=== PATIENT | female | born 1990 | race Hispanic/Latino ===

== ENCOUNTER 2022-05-21 17:44 | Inpatient (IN) | payer MEDICAID ==
[2022-05-21] MEDS ORDERED: LACTATED RINGERS 1,000 ML ONE (18:06)
[2022-05-21] MEDS ORDERED: OXYTOCIN DRIP 30,000 MILLIUNITS/500 ML BAG IV ONE (18:06)
[2022-05-21] MEDS ORDERED: TERBUTALINE 1 MG/1 ML INJ ONE (18:19)
[2022-05-21] MEDS ORDERED: METOCLOPRAMIDE 10 MG/2 ML INJ IV ONE (18:21)
[2022-05-21] MEDS ORDERED: BICITRA ORAL LIQD 30ML PO ONE (18:21)
[2022-05-21] MEDS ORDERED: AZITHROMYCIN/NS 500 MG/250 ML 500 MG/250 ML BAG IV ONE (18:21)
[2022-05-21] MEDS ORDERED: FAMOTIDINE 20 MG/2 ML INJ IV ONE (18:21)
[2022-05-21] MEDS ORDERED: TERBUTALINE 1 MG/1 ML INJ SUB-Q ONE (18:23)
[2022-05-21] MEDS ORDERED: LACTATED RINGERS 1,000 ML IV SCH ×2 (18:30)
[2022-05-21 18:38] LABS: Hematocrit 26.8 % (30.3-42.9); Hemoglobin 8.4 gm/dl (10.1-14.3); Mean Corpuscular HGB Conc 31 % (30-34); Mean Corpuscular Volume 70 fl (79-97); Platelet Count 225 K/mm3 (140-440); Red Blood Count 3.86 M/mm3 (3.65-5.03); Red Cell Distribution Width 17.8 % (13.2-15.2)
[2022-05-21] MEDS ORDERED: propofoL 200 MG/20 ML VIAL IV ONE (18:59)
[2022-05-21] MEDS ORDERED: SUCCINYLCHOLINE CHLORIDE 200 MG/10 ML INJ MDV ONE (18:59)
[2022-05-21] MEDS ORDERED: OXYTOCIN DRIP 30 UNITS/500 ML BAG IV SCH ×2 (19:00→21:00)
[2022-05-21] MEDS ORDERED: ceFAZolin/Water 2 GM/20 ML 2 GM/20 ML SYRINGE IV NR (19:00)
[2022-05-21] MEDS ORDERED: fentaNYL 100 MCG/2 ML INJ ONE ×2 (19:01→20:06)
[2022-05-21] MEDS ORDERED: MIDAZOLAM 2 MG/2 ML INJ ONE (19:01)
[2022-05-21 19:02] LABS: Alanine Aminotransferase 9 units/L (7-56); Albumin 3.1 g/dL (3.9-5); Blood Urea Nitrogen 8 mg/dL (7-17); Calcium 8.3 mg/dL (8.4-10.2); Hemolysis Index 15
[2022-05-21 19:05] LABS: BUN/Creatinine Ratio 13
--- NOTE | 2022-05-21 19:09 | History and Physical Report ---
History of Present Illness Date of examination: 05/21/22 Date of admission: 05/21/22 Chief complaint: Active painful labor History of present illness: . X3 prior cesareans. DEIDRA 05/27/22. Past History Past Medical History: asthma, seizure Past Surgical History: section - Obstetrical History Expected Date of Delivery: 05/27/22 Actual Gestation: 39 Week(s) 1 Day(s) : 5 Medications and Allergies Allergies Allergy/AdvReac Type Severity Reaction Status Date / Time Latex, Natural Rubber Allergy Severe Rash Verified 11/29/13 15:14 Home Medications Medication Instructions Recorded Confirmed Last Taken Type No Known Home Medications [No 11/29/13 12/26/13 Unknown History Reported Home Medications] Active Meds: Active Medications Lactated Ringer's (Lactated Ringers) 1,000 mls @ 125 mls/hr IV DIRECT KOMAL Lactated Ringer's (Lactated Ringers) 1,000 mls @ 2,250 mls/hr IV PREOP KOMAL Stop: 05/22/22 18:57 Oxytocin/Sodium Chloride (Pitocin/Ns 30 Unit/500ml) 30 units in 500 mls @ 0 mls/hr IV TITR KOMAL; Protocol Cefazolin Sodium (Ancef/Sterile Water 2 Gm/20 Ml) 2 gm in 20 mls @ 80 mls/hr IV PREOP NR; Protocol Stop: 05/21/22 23:59 Azithromycin (Zithromax/Ns) 500 mg in 250 mls @ 250 mls/hr IV ONCE ONE; Protocol Stop: 05/21/22 19:20 Review of Systems All systems: negative Genitourinary: contractions - Vital Signs Vital signs: Vital Signs Pulse BP 81 139/94 05/21/22 18:10 05/21/22 18:10 Temp Pulse Resp BP Pulse Ox 97.5 F L 78 140/89 05/21/22 18:25 05/21/22 18:27 05/21/22 18:27 - Physical Exam Lungs: Positive: Normal air movement Abdomen: Positive: normal appearance, soft, distention, normal bowel sounds Genitourinary (Female): Positive: normal external genitalia, normal perenium Vulva: both: normal Vagina: Positive: normal moisture. Negative: discharge Uterus: Positive: enlarged, normal contour Anus/Rectum: Positive: normal perianal skin Extremities: Positive: normal Deep Tendon Reflex Grade: Normal +2 - Obstetrical FHR: category 1 Cervical Dilatation: 7 Cervical Effacement Percentage: 100 station: 0-4 breech Uterine Contraction Pattern: Regular Uterine Contraction Intensity: Strong/Firm Results Result Diagrams: 05/21/22 18:04 05/21/22 18:12 Abnormal lab results 05/21/22 Range/Units 18:04 WBC 12.2 H (4.5-11.0) K/mm3 Hgb 8.4 L (10.1-14.3) gm/dl Hct 26.8 L (30.3-42.9) % MCV 70 L (79-97) fl MCH 22 L (28-32) pg RDW 17.8 H (13.2-15.2) % All other labs normal. Assessment and Plan - Patient Problems (1) 39 weeks gestation of Current Visit: Yes Status: Acute (2) Breech presentation Current Visit: Yes Status: Acute (3) Previous delivery affecting Current Visit: Yes Status: Acute (4) Peritoneal adhesions Current Visit: Yes Status: Acute (5) Active labor Current Visit: Yes Status: Acute Plan to address problem: for delivery abelino.
[2022-05-21] MEDS ORDERED: SODIUM CHLORIDE 0.9% 500 ML 500 ML IV ONE (19:47)
[2022-05-21] MEDS ORDERED: LACTATED RINGERS 2,000 ML ONE (20:06)
[2022-05-21] MEDS ORDERED: SODIUM CHLORIDE 0.9% IRR 1,500 ML BOTTLE IR ONE (20:09)
[2022-05-21] MEDS ORDERED: WATER FOR IRRIG STERILE 1,500 ML BOTTLE IR ONE (20:09)
[2022-05-21] MEDS ORDERED: ONDANSETRON 4 MG/2 ML INJ IV PRN ×2 (20:33→21:09)
[2022-05-21] MEDS ORDERED: SENNOSIDES 8.6 MG TAB PO PRN (20:33)
[2022-05-21] MEDS ORDERED: WITCH HAZEL/ GLYCERIN PAD TP PRN (20:33)
[2022-05-21] MEDS ORDERED: IBUPROFEN 600 MG TAB PO PRN (20:33)
[2022-05-21] MEDS ORDERED: NALOXONE 0.4 MG/1 ML INJ IV PRN ×2 (20:33→21:09)
[2022-05-21] MEDS ORDERED: KETOROLAC 30 MG/1 ML INJ IV PRN (20:33)
[2022-05-21] MEDS ORDERED: LANOLIN/ZINC/DIMETHICONE (LANSINOH) 7 GM TP PRN (20:33)
[2022-05-21] MEDS ORDERED: PROMETHAZINE 25 MG RECT SUPP PR PRN ×2 (20:33→21:09)
[2022-05-21] MEDS ORDERED: MORPHINE 2 MG/1 ML INJ IV PRN (20:33)
[2022-05-21] MEDS ORDERED: MORPHINE 4 MG/1 ML INJ IV PRN ×2 (20:33→21:09)
--- NOTE | 2022-05-21 20:48 | Operative Report ---
Operative Report Operative Report: Date of surgery: May 21, 2022 Preoperative diagnoses: 39 weeks and 1 day, active labor, 3 previous section, breech presentation, peritoneal adhesions Postoperative diagnoses: The same. Operation: Lower segment transverse delivery, lysis of adhesion Surgeon:Kavin Bryant MD Coding Clerks Supervisor: Arnold Delaney CRNA Anesthesia: Spinal block Estimated blood loss: 1010 mL Complications: None Findings: Live baby girl, complete breech scores 8 and 9 weight 8 pounds 9 ounces. The ovaries, fallopian tubes on the uterus were unremarkable gravid structures. The inferior aspects of the greater omentum was adherent to the anterior parietal peritoneum just inferior to the umbilical stump in the midline. Procedure in detail: The patient was taken to the operating room and given a spinal block. Patient was placed in the straight supine position and a Maldonado catheter was inserted. The patient was prepped in the abdomen. The drapes were placed. A timeout was done. With the go ahead from the pin inserter, a Pfannenstiel incision was made. This incision was carried across the subcutaneous layer to the fascia which was also divided transversely. The recti abdominis muscle flaps were stripped from the fascia using a combination of blunt and sharp dissections. The muscles were in the midline to gain access to the anterior parietal peritoneum which was divided after excluding any underlying viscera. The access to the peritoneal cavity was then widened by manual stretching. The bladder blade was applied. The utero vesicle peritoneal flap was divided transversely allowing the bladder to be displaced caudally. The uterine incision was placed in the lower segment transversely. The uterine incision was carried to the decidual layer. The uterine incision was extended on both sides using the bandage scissors. The amniotic sac was ruptured with clear fluid. The feet of the baby were extracted from the uterus, and having wrapped these in a wet blue towels, traction was used to deliver the trunk of the baby up to the shoulders. The Lovset maneuver was used to deliver the arms. Holding the baby by the feet and upside down fundal pressure delivered the head of the baby through the incision without any difficulties. The airways were bulb suctioned beginning with the mouth. The umbilical cord was double clamped and divided. The baby was carefully transferred to the pediatric team. The placenta was manually removed from the uterine cavity. The uterine cavity was explored and was empty of any placental remnants. The uterine incision was repaired in 2 layers with #1 Vicryl. The surgical line on the uterus was hemostatic. The peritoneal adhesions described on the findings were divided in between 2 pairs of hemostats. Hemostasis was achieved using the Bovie. Blood and clots were cleared from the peritoneal cavity. The anterior parietal peritoneum was repaired with #1 Vicryl. The fascia was repaired with #1 Vicryl. The subcutaneous layer was made hemostatic using the Bovie before the skin was closed subcuticularly with 4-0 Vicryl. There were no complications. The estimated blood loss was 1010 mL. All sponges and instrument counts were correct. Patient was safely transferred to the recovery room.
[2022-05-21] MEDS ORDERED: PROMETHAZINE 25 MG TAB PO PRN (21:09)
[2022-05-21] MEDS ORDERED: diphenhydrAMINE 50 MG/ML VIAL IV PRN (21:09)
[2022-05-21] MEDS ORDERED: HYDROmorphone 1 MG/1 ML INJ IV PRN ×3 (21:09→22:43)
--- NOTE | 2022-05-21 21:11 | Anesthesia Day of Surgery ---
Anesthesia Day of Surgery - Day of Surgery Patient Examined: Yes Patient H&P Reviewed: Yes Patient is NPO: Yes Beta Blockers: No Cardiac Clearance: No Pulmonary Clearance: No Julian's Test: N/A
--- NOTE | 2022-05-21 21:11 | Anesthesia Consultation ---
Anesthesia Consult and Med Hx Date of service: 05/21/22 - Airway Anesthetic Teeth Evaluation: Good ROM Head & Neck: Adequate Mental/Hyoid Distance: Adequate Mallampati Class: Class II Intubation Access Assessment: Good - Pulmonary Exam CTA: Yes - Cardiac Exam Cardiac Exam: RRR - Pre-Operative Health Status ASA Pre-Surgery Classification: ASA2, Emergency Proposed Anesthetic Plan: General Nerve Block: Herminio Tap - Pulmonary Hx Smoking: No Hx Asthma: No Hx Respiratory Symptoms: No SOB: No COPD: No Home Oxygen Therapy: No Hx Pneumonia: No Hx Sleep Apnea: No - Cardiovascular System Hx Hypertension: No Hx Coronary Artery Disease: No Hx Heart Attack/AMI: No Hx Angina: No Hx Percutaneous Transluminal Coronary Angioplasty (PTCA): No Hx Cardia Arrhythmia: No Hx Pacemaker: No Hx Internal Defibrillator: No Hx Valvular Heart Disease: No Hx Heart Murmur: No Hx Peripheral Vascular Disease: No - Central Nervous System Hx Neuromuscular Disorder: No Hx Seizures: Yes CVA: No Hx Psychiatric Problems: No - Gastrointestinal Hx Ulcer: No Hx Gastroesophageal Reflux Disease: No - Endocrine Hx Renal Disease: No Hx End Stage Renal Disease: No Hx Cirrhosis: No Hx Liver Disease: No Hx Insulin Dependent Diabetes: No Hx Non-Insulin Dependent Diabetes: No Hx Thyroid Disease: No Hx Hypothyroidism: No Hx Hyperthyroidism: No - Hematic Hx Anemia: No Hx Sickle Cell Disease: No - Other Systems Hx Alcohol Use: No Hx Substance Use: No Hx Cancer: No Hx Obesity: No
--- NOTE | 2022-05-21 21:13 | Progress Note ---
Regional Anesthesia Block - Regional Anesthesia Block Start Time: 20:54 Stop Time: 20:57 Performed By:: HENRY BATES Procedure: During the pre-op interview the patient agreed to and signed a consent for a TAP block for post surgical pain management. After her C/S was completed a time out was performed prior to the start of the procedure. The Trans Abdominal Plane was identified bilaterally via ultrasound. The skin was prepped bilaterally with chlorhexidine and a 22g stimuplex needle was advanced to the area between the internal oblique muscle and the trans abdominal plane. Marcaine 0.25% 30mlwas injected under ultrasound guidance on the left and right side. Negative aspiration every 5mL, There was no change in the patients heart rate or rhythm and the patient tolerated the procedure well. No apparent complications were observed.
[2022-05-21 21:46] LABS: Anisocytosis 2+; Band Neutrophils # (Manual) 1.1 K/mm3; Basophils % (Manual) 0 % (0.0-1.8); Hypochromasia 1+; Myelocytes # (Manual) 0.2 K/mm3; Ovalocytes 1+; Tear Drop Cells Few; Total Cells Counted 100
[2022-05-21 21:47] LABS: Large Platelets Few; Platelet Estimate Consistent w Auto
[2022-05-21] MEDS ORDERED: MAGNESIUM SULFATE 4 GM/100 ML BAG IV ONE (22:50)
[2022-05-21] MEDS: MAGNESIUM SULFATE 40GM/1000ML 40 GM/1,000 ML BAG IV SCH (23:46)
[2022-05-21] MEDS: KETOROLAC 30 MG/1 ML INJ IV PRN (23:47)
[2022-05-22 01:08] LABS: Hematocrit 26.6 % (30.3-42.9)
[2022-05-22] MEDS: KETOROLAC 30 MG/1 ML INJ IV PRN ×3 (06:44→20:37)
[2022-05-22] MEDS: HYDROcodone/ACETAMINOPHEN 5-325 MG TAB PO PRN ×2 (11:35→17:33)
[2022-05-22] MEDS: PRENATAL VIT27-FE FUMARATE-FOLIC ACID VIT TAB PO SCH (11:35)
[2022-05-22 12:14] LABS: Hematocrit 23.9 % (30.3-42.9); Hemoglobin 7.4 gm/dl (10.1-14.3); Mean Corpuscular HGB Conc 31 % (30-34); Platelet Count 229 K/mm3 (140-440); Red Blood Count 3.44 M/mm3 (3.65-5.03); Red Cell Distribution Width 18.1 % (13.2-15.2)
--- NOTE | 2022-05-22 12:23 | Progress Note ---
Assessment and Plan - Patient Problems (1) 39 weeks gestation of Current Visit: Yes Status: Resolved (2) Breech presentation Current Visit: Yes Status: Resolved Qualifiers: Fetus number: single or unspecified fetus Qualified Code(s): O32.1XX0 - Maternal care for breech presentation, not applicable or unspecified (3) Previous delivery affecting Current Visit: Yes Status: Resolved (4) Peritoneal adhesions Current Visit: Yes Status: Resolved (5) Active labor Current Visit: Yes Status: Resolved (6) Status post delivery Current Visit: Yes Status: Acute Plan to address problem: Stable Subjective - Subjective Date of service: 05/22/22 Principal diagnosis: status post day 1. Interval history: . X3 prior cesareans. DEIDRA 05/27/22. Patient reports: appetite normal, voiding normally (abreu's in place, on mag sulfate), pain well controlled : doing well Objective - Vital Signs Latest vital signs: Vital Signs Temp Pulse Resp BP Pulse Ox Pulse Ox 05/22/22 12:15 93 H 94 05/22/22 12:10 91 H 95 05/22/22 12:05 93 H 95 05/22/22 12:04 93 H 116/75 05/22/22 12:00 95 H 96 05/22/22 11:55 92 H 97 05/22/22 11:50 92 H 95 05/22/22 11:45 98 H 95 05/22/22 11:40 93 H 95 05/22/22 11:35 91 H 95 05/22/22 11:30 93 H 95 05/22/22 11:25 94 H 95 05/22/22 11:20 90 97 05/22/22 11:15 89 95 05/22/22 11:10 98 H 94 05/22/22 11:05 102 H 95 05/22/22 11:04 103 H 94 05/22/22 11:03 96 H 133/72 05/22/22 11:00 98 H 95 05/22/22 10:56 94 H 94 05/22/22 10:55 96 H 95 05/22/22 10:50 89 98 05/22/22 10:45 94 H 96 05/22/22 10:44 87 94 05/22/22 10:43 95 H 133/71 05/22/22 10:40 93 H 96 05/22/22 10:37 90 94 05/22/22 10:35 95 H 95 05/22/22 10:30 94 H 97 05/22/22 10:25 96 H 97 05/22/22 10:23 96 H 120/63 05/22/22 10:20 93 H 97 05/22/22 10:15 91 H 97 05/22/22 10:10 92 H 97 05/22/22 10:05 90 97 05/22/22 10:03 89 119/65 05/22/22 10:00 88 98 05/22/22 09:55 90 97 05/22/22 09:50 90 96 05/22/22 09:45 90 96 05/22/22 09:43 88 119/63 05/22/22 09:40 90 95 05/22/22 09:35 89 95 05/22/22 09:31 101 H 94 05/22/22 09:30 95 H 95 05/22/22 09:26 98 H 92 05/22/22 09:25 99 H 95 05/22/22 09:24 100 H 118/63 05/22/22 09:21 94 H 94 05/22/22 09:20 99 H 94 05/22/22 09:16 96 H 94 05/22/22 09:15 95 H 95 05/22/22 09:10 91 H 93 05/22/22 09:09 86 94 05/22/22 09:05 91 H 95 05/22/22 09:03 93 H 125/63 94 05/22/22 09:00 94 H 96 05/22/22 08:58 93 H 94 05/22/22 08:55 92 H 95 05/22/22 08:50 95 H 96 05/22/22 08:45 93 H 96 05/22/22 08:43 90 117/61 05/22/22 08:40 95 H 96 05/22/22 08:35 95 H 96 05/22/22 08:30 93 H 95 05/22/22 08:25 90 96 05/22/22 08:23 92 H 114/59 05/22/22 08:20 93 H 96 05/22/22 08:15 95 H 96 05/22/22 08:10 92 H 96 05/22/22 08:05 96 H 95 05/22/22 08:03 97 H 109/57 05/22/22 08:00 96 H 95 05/22/22 07:55 94 H 94 05/22/22 07:51 95 H 94 05/22/22 07:50 95 H 95 05/22/22 07:45 95 H 95 05/22/22 07:43 92 H 113/61 05/22/22 07:42 97 H 94 05/22/22 07:40 97 H 95 05/22/22 07:36 96 H 94 05/22/22 07:35 96 H 95 05/22/22 07:31 102 H 94 05/22/22 07:30 102 H 94 05/22/22 07:25 94 H 93 05/22/22 07:23 94 H 117/66 05/22/22 07:20 95 H 93 05/22/22 07:15 100 H 90 05/22/22 07:10 98 H 94 05/22/22 07:09 97 H 94 05/22/22 07:05 98 H 94 05/22/22 07:03 96 H 108/60 05/22/22 07:01 96 H 94 05/22/22 07:00 96 H 95 05/22/22 06:55 99 H 95 05/22/22 06:50 98 H 95 05/22/22 06:45 93 H 95 05/22/22 06:43 98 H 109/61 05/22/22 06:41 101 H 94 05/22/22 06:40 100 H 95 05/22/22 06:35 98 H 94 05/22/22 06:30 97.5 F L 95 H 95 05/22/22 06:29 98 H 94 05/22/22 06:25 103 H 94/65 95 05/22/22 06:23 103 H 94/55 94 05/22/22 06:20 96 H 95 05/22/22 06:15 100 H 95 05/22/22 06:14 99 H 94 05/22/22 06:10 99 H 95 05/22/22 06:07 100 H 94 05/22/22 06:05 100 H 95 05/22/22 06:03 98 H 109/56 05/22/22 06:00 96 H 95 05/22/22 05:56 93 H 94 05/22/22 05:55 97 H 95 09/16/22 05:50 97 H 95 05/22/22 05:45 97 H 95 05/22/22 05:43 93 H 106/56 05/22/22 05:42 102 H 94 05/22/22 05:40 99 H 95 05/22/22 05:35 95 H 96 05/22/22 05:30 98.0 F 97 H 95 05/22/22 05:25 94 H 96 05/22/22 05:23 93 H 113/68 05/22/22 05:20 95 H 95 05/22/22 05:15 94 H 96 05/22/22 05:10 104 H 93 05/22/22 05:05 98 H 95 05/22/22 05:03 93 H 113/64 05/22/22 05:00 96 H 95 05/22/22 04:55 97 H 96 05/22/22 04:50 103 H 93 05/22/22 04:48 99 H 94 05/22/22 04:45 101 H 95 05/22/22 04:43 100 H 113/68 05/22/22 04:40 95 H 94 05/22/22 04:35 97 H 96 05/22/22 04:32 94 H 94 05/22/22 04:30 98 H 95 05/22/22 04:27 102 H 94 05/22/22 04:25 98 H 95 05/22/22 04:23 91 H 111/56 05/22/22 04:21 105 H 94 05/22/22 04:20 103 H 95 05/22/22 04:15 98 H 95 05/22/22 04:10 93 H 95 05/22/22 04:09 93 H 94 05/22/22 04:05 101 H 95 05/22/22 04:04 98 H 94 05/22/22 04:03 99 H 99/55 05/22/22 04:00 95 H 95 05/22/22 03:58 94 H 93 05/22/22 03:55 99 H 95 05/22/22 03:53 97 H 94 05/22/22 03:50 98 H 95 05/22/22 03:47 102 H 94 05/22/22 03:45 99 H 95 05/22/22 03:43 94 H 118/62 05/22/22 03:41 95 H 94 05/22/22 03:40 100 H 96 05/22/22 03:35 95 H 96 05/22/22 03:30 98 H 96 05/22/22 03:25 99 H 96 05/22/22 03:23 97 H 108/55 05/22/22 03:20 93 H 97 05/22/22 03:15 90 95 05/22/22 03:10 90 95 05/22/22 03:09 92 H 94 05/22/22 03:05 98 H 96 05/22/22 03:03 101 H 124/57 05/22/22 03:00 98.3 F 105 H 96 05/22/22 02:58 106 H 94 05/22/22 02:55 104 H 95 05/22/22 02:51 106 H 94 05/22/22 02:50 105 H 94 05/22/22 02:45 110 H 94 05/22/22 02:44 101 H 94 05/22/22 02:43 105 H 117/58 05/22/22 02:40 102 H 95 05/22/22 02:37 100 H 93 05/22/22 02:35 108 H 94 05/22/22 02:32 100 H 94 05/22/22 02:30 111 H 95 05/22/22 02:26 102 H 93 05/22/22 02:25 105 H 96 05/22/22 02:23 103 H 116/58 05/22/22 02:21 96 H 94 05/22/22 02:20 104 H 95 05/22/22 02:15 102 H 96 05/22/22 02:14 102 H 93 05/22/22 02:10 105 H 95 05/22/22 02:05 105 H 97 05/22/22 02:03 104 H 119/64 05/22/22 02:00 98.3 F 107 H 95 05/22/22 01:55 96 H 95 05/22/22 01:50 102 H 95 05/22/22 01:45 104 H 93 05/22/22 01:43 95 H 116/65 94 05/22/22 01:40 108 H 93 05/22/22 01:35 102 H 93 05/22/22 01:30 106 H 93 05/22/22 01:29 102 H 93 05/22/22 01:25 103 H 95 05/22/22 01:23 101 H 118/60 05/22/22 01:22 93 H 94 05/22/22 01:20 93 H 95 05/22/22 01:17 104 H 94 05/22/22 01:15 104 H 96 05/22/22 01:10 99 H 96 05/22/22 01:07 98.0 F 05/22/22 01:05 94 H 96 05/22/22 01:03 100 H 115/56 05/22/22 01:00 104 H 95 05/22/22 00:58 100 H 94 05/22/22 00:55 100 H 95 05/22/22 00:50 99 H 93 05/22/22 00:45 102 H 95 05/22/22 00:44 105 H 94 05/22/22 00:43 101 H 116/68 05/22/22 00:40 102 H 95 05/22/22 00:39 99 H 93 05/22/22 00:35 100 H 94 05/22/22 00:34 110 H 94 05/22/22 00:30 106 H 95 05/22/22 00:26 106 H 94 05/22/22 00:25 104 H 96 05/22/22 00:23 103 H 120/74 05/22/22 00:21 104 H 94 05/22/22 00:20 106 H 95 05/22/22 00:15 92 H 93 05/22/22 00:14 89 94 05/22/22 00:10 98 H 92 05/22/22 00:07 98.3 F 95 05/22/22 00:05 100 H 95 05/22/22 00:03 100 H 140/84 05/22/22 00:01 104 H 94 05/22/22 00:00 102 H 95 05/21/22 23:55 95 H 94 05/21/22 23:52 93 H 94 05/21/22 23:50 88 94 05/21/22 23:45 97 H 94 05/21/22 23:43 92 H 148/94 05/21/22 23:40 93 H 93 05/21/22 23:39 97 H 94 05/21/22 23:35 93 H 94 05/21/22 23:33 95 H 93 05/21/22 23:30 92 H 95 05/21/22 23:27 88 92 05/21/22 23:25 94 H 95 05/21/22 23:22 101 H 94 05/21/22 23:20 90 95 05/21/22 23:15 88 97 05/21/22 23:10 101 H 100 05/21/22 23:05 80 99 05/21/22 23:00 88 153/92 99 05/21/22 22:55 89 97 05/21/22 22:50 103 H 96 05/21/22 22:45 101 H 96 05/21/22 22:40 85 96 05/21/22 22:37 88 143/99 05/21/22 22:35 93 H 97 05/21/22 21:45 97.5 F L 05/21/22 21:40 79 19 152/97 96 05/21/22 21:25 77 14 146/97 99 05/21/22 21:15 79 148/95 98 05/21/22 21:10 87 24 139/102 99 05/21/22 21:05 89 144/91 97 05/21/22 21:00 80 25 H 140/86 95 05/21/22 20:56 89 24 135/88 94 05/21/22 20:52 98.9 F 05/21/22 20:50 94 H 25 H 142/91 93 05/21/22 19:00 98 05/21/22 18:27 78 140/89 05/21/22 18:25 97.5 F L 05/21/22 18:10 81 139/94 Intake and Output 05/21/22 05/22/22 05/22/22 23:59 07:59 15:59 Intake Total 2500 Output Total 550 750 Balance 1950 -750 Intake: IV 2500 Output: Urine 550 750 Indwelling Catheter 550 Uretheral (Abreu) 200 Other: Total, Output Amount 100 Weight 92.986 kg Estimated Blood Loss 1,010 - Exam Lungs: Present: Normal air movement Abdomen: Present: normal appearance, soft, normal bowel sounds Uterus: Present: normal, firm Extremities: Present: normal Deep Tendon Reflex Grade: Dull/Diminished +1 Incision: Present: normal, dry, intact - Labs Labs: Abnormal lab results 05/21/22 05/21/22 05/21/22 Range/Units 18:04 18:04 18:12 WBC 12.2 H (4.5-11.0) K/mm3 Hgb 8.4 L (10.1-14.3) gm/dl Hct 26.8 L (30.3-42.9) % MCV 70 L (79-97) fl MCH 22 L (28-32) pg RDW 17.8 H (13.2-15.2) % Lymphocytes % (Manual) 9.0 L (13.4-35.0) % Nucleated RBC % 2.0 H (0.0-0.9) % Seg Neutrophils # Man 8.4 H (1.8-7.7) K/mm3 Lymphocytes # (Manual) 1.1 L (1.2-5.4) K/mm3 Sodium 135 L (137-145) mmol/L Calcium 8.3 L (8.4-10.2) mg/dL Magnesium (1.7-2.3) mg/dL Alkaline Phosphatase 208 H (35-129) units/L Albumin 3.1 L (3.9-5) g/dL Crossmatch See Detail 05/22/22 05/22/22 Range/Units 00:49 08:12 WBC (4.5-11.0) K/mm3 Hgb 8.0 L (10.1-14.3) gm/dl Hct 26.6 L (30.3-42.9) % MCV (79-97) fl MCH (28-32) pg RDW (13.2-15.2) % Lymphocytes % (Manual) (13.4-35.0) % Nucleated RBC % (0.0-0.9) % Seg Neutrophils # Man (1.8-7.7) K/mm3 Lymphocytes # (Manual) (1.2-5.4) K/mm3 Sodium (137-145) mmol/L Calcium (8.4-10.2) mg/dL Magnesium 4.80 H (1.7-2.3) mg/dL Alkaline Phosphatase (35-129) units/L Albumin (3.9-5) g/dL Crossmatch
[2022-05-22 12:24] LABS: Cannabinoid Screen,Urine Negative; Cocaine Screen,Urine Negative; Methadone Screen,Urine Negative; Opiate Screen,Urine Negative
[2022-05-22 12:36] LABS: Mean Corpuscular Volume 69 fl (79-97)
[2022-05-22] MEDS: SIMETHICONE 80 MG CHEW TAB PO PRN ×2 (13:14→19:41)
[2022-05-22 13:17] LABS: Amphetamine Screen,Urine Positive; Benzodiazepines Screen,Urine Positive
[2022-05-22] MEDS ORDERED: LACTATED RINGERS 1,000 ML ONE (13:36)
--- NOTE | 2022-05-22 17:43 | Post Anesthesia Evaluation ---
- Post Anesthesia Evaluation Patient Participated: Yes Airway Patent: Yes Stable Respiratory Function: Yes Nausea/Vomiting: No Temp > 96.8F: Yes Pain Manageable: Yes Adequeate Hydration: Yes Anesthesia Complications: No Block Receding Appropriately: Yes Patient on Ventilator: No
[2022-05-22] MEDS: MAGNESIUM SULFATE 40GM/1000ML 40 GM/1,000 ML BAG IV SCH (20:20)
[2022-05-22] MEDS ORDERED: FLEET ENEMA PR ONE ×2 (21:50→22:20)
--- NOTE | 2022-05-22 21:53 | Event Note ---
Date: 05/22/22 Patient is stable. Shallow breaths. Encouraged to use the incentive spirometer online to breathe deeper.
[2022-05-23] MEDS: HYDROcodone/ACETAMINOPHEN 5-325 MG TAB PO PRN ×4 (02:51→16:48)
[2022-05-23] MEDS: SIMETHICONE 80 MG CHEW TAB PO PRN (04:14)
[2022-05-23] MEDS: IBUPROFEN 800 MG TAB PO PRN ×2 (04:14→10:52)
[2022-05-23] MEDS: PRENATAL VIT27-FE FUMARATE-FOLIC ACID VIT TAB PO SCH (10:53)
[2022-05-23] MEDS: MAGNESIUM HYDROXIDE (MOM) ORAL LIQD UDC PO PRN (16:46)
--- NOTE | 2022-05-23 22:50 | Progress Note ---
Assessment and Plan - Patient Problems (1) 39 weeks gestation of Current Visit: Yes Status: Resolved (2) Breech presentation Current Visit: Yes Status: Resolved Qualifiers: Fetus number: single or unspecified fetus Qualified Code(s): O32.1XX0 - Maternal care for breech presentation, not applicable or unspecified (3) Previous delivery affecting Current Visit: Yes Status: Resolved (4) Peritoneal adhesions Current Visit: Yes Status: Resolved (5) Active labor Current Visit: Yes Status: Resolved (6) Status post delivery Current Visit: Yes Status: Acute Plan to address problem: Stable (7) History of seizure Current Visit: Yes Status: Acute Plan to address problem: Was on MgSO4 in the immediate period plus labetalol for rising BPs. BPs stable now. Subjective - Subjective Date of service: 05/23/22 Principal diagnosis: status post day 2. Interval history: . X3 prior cesareans. DEIDRA 05/27/22. 05/23/22 Day 2 post . Alert and ambulating. No new complaints. Patient reports: appetite normal, voiding normally, pain well controlled, ambulating normally [place]: doing well, in NICU (under obs for maternal use of "substances") Objective - Vital Signs Latest vital signs: Vital Signs Temp Pulse Resp BP BP Pulse Ox Pulse Ox 05/23/22 15:23 97.4 F L 71 18 112/63 98 05/23/22 11:52 97.6 F 85 18 95/49 96 05/23/22 08:33 98.1 F 68 20 119/54 95 05/23/22 08:20 97 05/23/22 06:36 81 108/56 05/23/22 03:35 97.6 F 84 19 102/55 96 05/23/22 03:20 92 05/23/22 02:15 85 94 05/23/22 02:10 83 93 05/23/22 02:05 83 92 05/23/22 02:04 81 103/55 05/23/22 02:00 85 92 05/23/22 01:55 93 H 92 05/23/22 01:50 92 H 93 05/23/22 01:45 82 95 05/23/22 01:40 86 94 05/23/22 01:35 85 94 05/23/22 01:30 88 95 05/23/22 01:25 88 94 05/23/22 01:20 87 94 05/23/22 01:15 89 95 05/23/22 01:10 98 H 96 05/23/22 01:05 90 96 05/23/22 01:04 88 113/66 05/23/22 01:00 91 H 95 05/23/22 00:55 91 H 95 05/23/22 00:50 91 H 95 05/23/22 00:45 89 94 05/23/22 00:40 91 H 96 05/23/22 00:35 85 98 05/23/22 00:30 86 99 05/23/22 00:25 82 99 05/23/22 00:20 79 97 05/23/22 00:15 80 97 05/23/22 00:10 80 97 05/23/22 00:05 79 95 05/23/22 00:04 77 113/66 05/23/22 00:00 92 H 98 05/22/22 23:55 84 98 05/22/22 23:50 84 99 05/22/22 23:45 84 98 05/22/22 23:40 82 97 05/22/22 23:35 81 100 05/22/22 23:30 82 100 05/22/22 23:25 88 100 05/22/22 23:20 73 100 05/22/22 23:15 79 96 05/22/22 23:10 80 105/59 98 05/22/22 23:05 81 96 05/22/22 23:04 84 105/59 05/22/22 23:00 89 96 05/22/22 22:55 89 96 05/22/22 22:50 88 95 Intake and Output 05/23/22 05/23/22 05/23/22 07:59 15:59 23:59 Intake Total 444.167 220 Output Total 1650 1 Balance -1205.833 219 Intake: IV 204.167 MAGNESIUM SULFATE 40GM/ 204.167 1000ML 40 gm In 1,000 ml @ 2 GM/HR 50 mls/hr IV DIRECT KOMAL Rx#:[id number] Oral 240 220 Output: Urine 1650 1 Void 1650 1 Other: Total, Intake Amount 240 220 Total, Output Amount 900 1 # Voids Void 2 1 1 - Exam Lungs: Present: Normal air movement Abdomen: Present: normal appearance, soft, normal bowel sounds Uterus: Present: normal, firm Extremities: Present: normal Deep Tendon Reflex Grade: Normal +2 Incision: Present: normal, dry, intact - Labs Labs: Abnormal lab results 05/22/22 05/23/22 Range/Units 22:20 09:26 Magnesium 5.90 H 3.50 H (1.7-2.3) mg/dL
--- NOTE | 2022-05-23 23:05 | Discharge Summary ---
Providers - Providers Date of Admission: 05/21/22 19:39 Date of discharge: 05/24/22 Attending physician: LENARD XAVIER MD 05/23/22 07:37 Consult to Case Management [CONS] Routine Services Needed at Discharge: Wardrobe Supervisor Notified:: [phone] Phone number called:: [phone] Was contact made?: No Additional Physician Instructions: No care Pt positive for Amphetamines and Benzodiazepines Primary care physician: LENARD XAVIER MD Hospitalization Reason for admission: active labor, IUP - , section Delivery: Procedure: section Episiotomy: none Laceration: none Incision: normal, dry, intact Other procedures: none complications: none Discharge diagnosis: IUP at term delivered baby: female Condition at discharge: Good Disposition: 01 HOME / SELF CARE / HOMELESS - Discharge Diagnoses (1) 39 weeks gestation of Status: Resolved (2) Breech presentation Status: Resolved Qualifiers: Fetus number: single or unspecified fetus Qualified Code(s): O32.1XX0 - Maternal care for breech presentation, not applicable or unspecified (3) Previous delivery affecting Status: Resolved (4) Peritoneal adhesions Status: Resolved (5) Active labor Status: Resolved (6) Status post delivery Status: Acute (7) History of seizure Status: Acute Plan - Provider Discharge Summary Activity: routine, no sex for 6 weeks, no heavy lifting 4 weeks, no strenuous exercise Diet: routine Instructions: other (Must present for BP recheck within 3 days to allow for adjustment of BP meds.) Additional instructions: [] Smoking cessation referral if applicable(refer to patient education folder for contact #) [] Refer to [facility] Booklet Call your doctor immediately for: * Fever > 100.5 * Heavy vaginal bleeding ( >1 pad per hour) * Severe persistent headache * Shortness of breath * Reddened, hot, painful area to leg or breast * Drainage or odor from incision. * Keep incision clean and dry at all times and follow doctor's instructions regarding bathing/showering - Follow up plan Follow up: LENARD XAVIER MD [Primary Care Provider] - 7 Days
[2022-05-24] MEDS: IBUPROFEN 800 MG TAB PO PRN ×2 (01:13→06:57)
[2022-05-24] MEDS: SIMETHICONE 80 MG CHEW TAB PO PRN (01:21)
[2022-05-24] MEDS: MAGNESIUM HYDROXIDE (MOM) ORAL LIQD UDC PO PRN (01:22)
[2022-05-24] MEDS: HYDROcodone/ACETAMINOPHEN 5-325 MG TAB PO PRN ×2 (01:45→09:39)
--- NOTE | 2022-05-24 02:45 | Event Note ---
Date: 05/24/22 All okay. Prescription for Placida 5/325 and labetalol 100 mg twice daily on file for patient.
[2022-05-24 09:32] VITALS: BP 119/73
[2022-05-24] MEDS: PRENATAL VIT27-FE FUMARATE-FOLIC ACID VIT TAB PO SCH (09:38)
== END 2022-05-24 10:30 | disposition home or self-care (01) | DRG 766 ==
LOC: TRG 17:44 → LD 17:47 → TRG 19:39 → LD 19:39 → OB 05-23 03:33
PROVIDERS: ADMIT Obstetrics & Gynecology; ATTEND Obstetrics & Gynecology
PROC: 10D00Z1 Extraction of Products of Conception, Low, Open Approach (ICD-10-PCS; principal; 2022-05-21)
PROC: 3E0T3BZ Introduction of Anesthetic Agent into Peripheral Nerves and Plexi, Percutaneous Approach (ICD-10-PCS; 2022-05-21)
PROC: 0DNW0ZZ Release Peritoneum, Open Approach (ICD-10-PCS; 2022-05-21)
PROC: 3E0234Z Introduction of Serum, Toxoid and Vaccine into Muscle, Percutaneous Approach (ICD-10-PCS; 2022-05-24)
DX: O32.1XX0 Maternal care for breech presentation, not applicable or unspecified (principal); O34.211 Maternal care for low transverse scar from previous cesarean delivery; Z20.822 Contact with and (suspected) exposure to COVID-19; K66.0 Peritoneal adhesions (postprocedural) (postinfection); Z3A.39 39 weeks gestation of pregnancy; Z37.0 Single live birth; O99.52 Diseases of the respiratory system complicating childbirth; J45.909 Unspecified asthma, uncomplicated; O99.62 Diseases of the digestive system complicating childbirth; Z91.040 Latex allergy status; Z91.048 Other nonmedicinal substance allergy status; O90.81 Anemia of the puerperium
CPT/HCPCS: 36415; 80053; 80307; 83735; 85007; 85014; 85018; 85025; 85027; 85461; 86592; 86706; 86762; 86850; 86900; 86901; 86920; 87806; 88307; G0378; J3490; J0330; J1170; J1885; J2250; J2704; J2765; J2790; J3010; J3475; J7120; U0003

== ENCOUNTER 2022-05-26 11:42 | Inpatient (IN) | payer MEDICAID ==
[2022-05-26] MEDS ORDERED: CEFEPIME/NS 2 GM/100 ML 2 GM/100 ML BAG IV ONE (12:39)
[2022-05-26] MEDS ORDERED: ONDANSETRON 4 MG/2 ML INJ IV ONE (12:41)
[2022-05-26] MEDS ORDERED: SODIUM CHLORIDE 0.9% 1000 ML 1,000 ML IV ONE ×3 (12:41→16:37)
[2022-05-26] MEDS ORDERED: MORPHINE 4 MG/1 ML INJ IV ONE ×2 (12:41→17:52)
--- NOTE | 2022-05-26 12:47 | Emergency Department Report ---
ED General Adult HPI - General Chief complaint: Dyspnea/Respdistress Stated complaint: CHEST PAIN /SIDE PAIN Time Seen by Provider: 05/26/22 12:35 Source: patient Mode of arrival: Wheelchair Limitations: No Limitations - History of Present Illness Initial comments: Patient presents to the emergency department chief complaint of abdominal pain or shortness of breath that has been present for the last couple of days. Patient is status post emergency on 05/21/2022 for preeclampsia. Patient is currently on labetalol at home. Patient denies chest pain but endorses significant amount of abdominal pain. -: Sudden Location: chest, abdomen Radiation: non-radiation Severity scale (0 -10): 7 Quality: stabbing Consistency: constant Improves with: none Worsens with: none Associated Symptoms: denies other symptoms Treatments Prior to Arrival: none - Related Data Home Medications Medication Instructions Recorded Confirmed Last Taken No Known Home Medications [No 11/29/13 12/26/13 Unknown Reported Home Medications] Allergies Allergy/AdvReac Type Severity Reaction Status Date / Time Latex, Natural Rubber Allergy Severe Rash Verified 11/29/13 15:14 ED Review of Systems ROS: Stated complaint: CHEST PAIN /SIDE PAIN Other details as noted in HPI Constitutional: denies: chills, fever Eyes: denies: eye pain, eye discharge, vision change ENT: denies: ear pain, throat pain Respiratory: shortness of breath. denies: cough, wheezing Cardiovascular: denies: chest pain, palpitations Endocrine: no symptoms reported Gastrointestinal: abdominal pain. denies: nausea, diarrhea Genitourinary: denies: urgency, dysuria, discharge Musculoskeletal: denies: back pain, joint swelling, arthralgia Skin: denies: rash, lesions Neurological: denies: headache, weakness, paresthesias Psychiatric: denies: anxiety, depression Hematological/Lymphatic: denies: easy bleeding, easy bruising ED Past Medical Hx - Past Medical History Hx Hypertension: No Hx Heart Attack/AMI: No Hx Diabetes: No Hx Deep Vein Thrombosis: No Hx Pulmonary Embolism: No Hx Liver Disease: No Hx Renal Disease: No Hx Sickle Cell Disease: No Hx Headaches / Migraines: No Hx Seizures: Yes Hx Asthma: No Hx COPD: No Hx Tuberculosis: No Hx HIV: No - Surgical History Past Surgical History?: Yes Hx Pacemaker: No Hx Internal Defibrillator: No Additional Surgical History: csection 05/21 - Social History Smoking Status: Never Smoker - Medications Home Medications: Home Medications Medication Instructions Recorded Confirmed Last Taken Type No Known Home Medications [No 11/29/13 12/26/13 Unknown History Reported Home Medications] ED Physical Exam - General Limitations: No Limitations, Other (Ill-appearing) General appearance: alert, in no apparent distress - Head Head exam: Present: atraumatic, normocephalic - Eye Eye exam: Present: normal appearance - ENT ENT exam: Present: mucous membranes dry - Neck Neck exam: Present: normal inspection - Respiratory Respiratory exam: Present: normal lung sounds bilaterally, decreased breath sounds. Absent: respiratory distress - Cardiovascular Cardiovascular Exam: Present: normal rhythm, tachycardia. Absent: systolic murmur, diastolic murmur, rubs, gallop - GI/Abdominal GI/Abdominal exam: Present: soft, distended, tenderness (Abdomen is distended and diffusely tender throughout. section wound appears to be healing without issue or signs of infection), normal bowel sounds - Extremities Exam Extremities exam: Present: normal inspection - Back Exam Back exam: Present: normal inspection - Neurological Exam Neurological exam: Present: alert, oriented X3, CN II-XII intact. Absent: motor sensory deficit - Psychiatric Psychiatric exam: Present: normal affect, normal mood - Skin Skin exam: Present: warm, dry, intact, normal color. Absent: rash ED Course Vital Signs 05/26/22 05/26/22 05/26/22 11:49 12:56 12:59 Temperature 98.3 F Pulse Rate 107 H 80 Respiratory 24 23 Rate Blood Pressure 145/114 [Right] O2 Sat by Pulse 98 99 Oximetry 05/26/22 05/26/22 05/26/22 13:01 13:15 13:58 Temperature Pulse Rate 114 H 137 H 115 H Respiratory 19 52 H 18 Rate Blood Pressure 139/88 [Right] O2 Sat by Pulse 99 94 99 Oximetry 05/26/22 05/26/22 15:00 17:06 Temperature 100.4 F H 98.6 F Pulse Rate 114 H 101 H Respiratory 20 18 Rate Blood Pressure 124/66 112/67 [Right] O2 Sat by Pulse 99 99 Oximetry ED Medical Decision Making - Lab Data Result diagrams: 05/26/22 13:38 05/26/22 13:38 Lab Results 09/20/22 09/20/22 09/20/22 Range/Units 13:38 13:38 13:38 WBC 8.1 (4.5-11.0) K/mm3 RBC 3.82 (3.65-5.03) M/mm3 Hgb 8.3 L (10.1-14.3) gm/dl Hct 26.5 L (30.3-42.9) % MCV 69 L (79-97) fl MCH 22 L (28-32) pg MCHC 31 (30-34) % RDW 17.9 H (13.2-15.2) % Plt Count 474 H (140-440) K/mm3 Sodium 138 (137-145) mmol/L Potassium 5.2 H D (3.6-5.0) mmol/L Chloride 99.0 (98-107) mmol/L Carbon Dioxide 22 (22-30) mmol/L Anion Gap 22 mmol/L BUN 20 H (7-17) mg/dL Creatinine 0.8 (0.6-1.2) mg/dL Estimated GFR > 60 ml/min BUN/Creatinine Ratio 25 % Glucose 76 (65-100) mg/dL Lactic Acid (0.7-2.0) mmol/L Calcium 9.0 (8.4-10.2) mg/dL Magnesium 1.60 L (1.7-2.3) mg/dL Total Bilirubin 0.80 (0.1-1.2) mg/dL AST 17 (5-40) units/L ALT 17 (7-56) units/L Alkaline Phosphatase 356 H (35-129) units/L Troponin T < 0.010 (0.00-0.029) ng/mL NT-Pro-B Natriuret Pep 1043 H (0-450) pg/mL Total Protein 6.4 (6.3-8.2) g/dL Albumin 3.0 L (3.9-5) g/dL Albumin/Globulin Ratio 0.9 % Urine Color (Yellow) Urine Turbidity (Clear) Specific Connell (Man) (1.003-1.030) Ur Protein (Man) (Negative) mg/dL Ur Ketones (Man) (Negative) Ur Nitrite (Man) (Negative) Ur Reducing Substances Urine Bilirubin (Man) (Negative) Urine Ictotest Leukocyte Esterase (Man) (Negative) Urine WBC (Auto) (0.0-6.0) /HPF Urine RBC (Auto) (0.0-6.0) /HPF U Epithel Cells (Auto) (0-13.0) /HPF Urine Bacteria (Auto) (Negative) /HPF Urine RBC (Manual) (Negative) Urine Mucus /HPF 05/26/22 05/26/22 05/26/22 Range/Units 13:38 13:57 16:03 WBC (4.5-11.0) K/mm3 RBC (3.65-5.03) M/mm3 Hgb (10.1-14.3) gm/dl Hct (30.3-42.9) % MCV (79-97) fl MCH (28-32) pg MCHC (30-34) % RDW (13.2-15.2) % Plt Count (140-440) K/mm3 Sodium (137-145) mmol/L Potassium (3.6-5.0) mmol/L Chloride (98-107) mmol/L Carbon Dioxide (22-30) mmol/L Anion Gap mmol/L BUN (7-17) mg/dL Creatinine (0.6-1.2) mg/dL Estimated GFR ml/min BUN/Creatinine Ratio % Glucose (65-100) mg/dL Lactic Acid 3.70 H* 2.70 H* (0.7-2.0) mmol/L Calcium (8.4-10.2) mg/dL Magnesium (1.7-2.3) mg/dL Total Bilirubin (0.1-1.2) mg/dL AST (5-40) units/L ALT (7-56) units/L Alkaline Phosphatase (35-129) units/L Troponin T (0.00-0.029) ng/mL NT-Pro-B Natriuret Pep (0-450) pg/mL Total Protein (6.3-8.2) g/dL Albumin (3.9-5) g/dL Albumin/Globulin Ratio % Urine Color Red (Yellow) Urine Turbidity Hazy (Clear) Specific Connell (Man) 1.015 (1.003-1.030) Ur Protein (Man) 2+ (Negative) mg/dL Ur Ketones (Man) 5mg/dl (Negative) Ur Nitrite (Man) Negative (Negative) Ur Reducing Substances Not Reportable Urine Bilirubin (Man) Negative (Negative) Urine Ictotest Not Reportable Leukocyte Esterase (Man) Trace (Negative) Urine WBC (Auto) 57.0 H (0.0-6.0) /HPF Urine RBC (Auto) > 182.0 (0.0-6.0) /HPF U Epithel Cells (Auto) 3.0 (0-13.0) /HPF Urine Bacteria (Auto) 1+ (Negative) /HPF Urine RBC (Manual) 3+ (Negative) Urine Mucus Few /HPF - EKG Data -: EKG Interpreted by Me EKG shows normal: sinus rhythm Rate: tachycardia - Radiology Data Radiology results: report reviewed - Medical Decision Making IV fluids initiated as well as IV antibiotics Discussed results with patient Discussed the patient with on-call surgeon who is Dr. Steffany Jeter evaluated patient in ED and will send her to the OR for exploratory lap Critical Care Time: Yes Critical care time in (mins) excluding proc time.: 35 Critical care attestation.: If time is entered above; I have spent that time in minutes in the direct care of this critically ill patient, excluding procedure time. ED Disposition Clinical Impression: Intra-abdominal abscess, Peritonitis, Sepsis Disposition: 09 ADMITTED INPATIENT Is pt being admited?: Yes Does the pt Need Aspirin: No Condition: Fair
--- NOTE | 2022-05-26 13:16 | XRay Report ---
CHEST 1 VIEW 05/26/2022 12:49 PM INDICATION / CLINICAL INFORMATION: sob. COMPARISON: None available. FINDINGS: Limited portable AP view is provided. SUPPORT DEVICES: None. HEART / MEDIASTINUM: No significant abnormality. LUNGS / PLEURA: Low lung volumes with associated bronchovascular crowding and perihilar congestion. M ild interstitial prominence likely on this basis, true trace edema secondarily considered. No pneumot horax. ADDITIONAL FINDINGS: No significant additional findings. IMPRESSION: 1. Low lung volumes with associated changes; see above for additional comments. No focal acute proces s demonstrated by portable AP radiograph. Signer Name: Liz North MD Signed: 05/26/2022 1:12 PM Workstation Name: [email or web address]
[2022-05-26 14:06] LABS: Hematocrit 26.5 % (30.3-42.9); Hemoglobin 8.3 gm/dl (10.1-14.3); Mean Corpuscular HGB Conc 31 % (30-34); Platelet Count 474 K/mm3 (140-440); Red Blood Count 3.82 M/mm3 (3.65-5.03); Red Cell Distribution Width 17.9 % (13.2-15.2)
[2022-05-26 14:30] LABS: Mean Corpuscular Volume 69 fl (79-97)
[2022-05-26 14:32] LABS: Alanine Aminotransferase 17 units/L (7-56); BUN/Creatinine Ratio 25; Blood Urea Nitrogen 20 mg/dL (7-17); Hemolysis Index 2
[2022-05-26] MEDS ORDERED: ACETAMINOPHEN 500 MG TAB PO ONE (15:01)
[2022-05-26 15:37] LABS: Bacteria,Urine 1+ /HPF (Negative); Mucus,Urine FEW /HPF
[2022-05-26 15:48] LABS: RBC,Urine > 182.0 /HPF (0.0-6.0)
[2022-05-26 15:49] LABS: Color,Urine Red (Yellow)
--- NOTE | 2022-05-26 16:19 | Cat Scan Report ---
CTA CHEST WITH CONTRAST INDICATION / CLINICAL INFORMATION: sob s/p 100ml of [id number] . TECHNIQUE: Axial CT images were obtained through the chest after injection of IV contrast. 3 plane LA P and/or 3D reconstructions were produced. All CT scans at this location are performed using CT dose reduction for ALARA by means of automated exposure control. COMPARISON: None available. FINDINGS: PULMONARY EMBOLUS: None. THORACIC AORTA: No significant abnormality. HEART: No significant abnormality. CORONARY ARTERY CALCIFICATION: Absent -- None. MEDIASTINUM / DOMINGUEZ: No significant abnormality. PLEURA: Tiny bilateral pleural effusions. No pneumothorax. LUNGS: No acute air space or interstitial disease. ADDITIONAL FINDINGS: None. UPPER ABDOMEN: No acute findings. SKELETAL STRUCTURES: No significant osseous abnormality. IMPRESSION: 1. No CT evidence for pulmonary embolism. 2. Tiny bilateral pleural effusions. Signer Name: Boby Espinoza MD Signed: 05/26/2022 4:15 PM Workstation Name: [email or web address]
--- NOTE | 2022-05-26 16:29 | Cat Scan Report ---
CT ABDOMEN AND PELVIS WITH CONTRAST HISTORY: abdominal pain s/p c section with distended ab COMPARISON: None TECHNIQUE: Routine abdominal and pelvic CT exam performed without IV. All CT scans at this location a re performed using CT dose reduction for ALARA by means of automated exposure control. FINDINGS: CT ABDOMEN: Lung Bases: See contemporaneous chest CT report. Liver: No significant abnormality. Biliary: No significant abnormality. Spleen: No significant abnormality. Unenlarged. Pancreas: No significant abnormality. Adrenals: No significant abnormality. Kidneys: No significant abnormality. Lymphatics: No lymphadenopathy. Vasculature: No significant abnormality. Bowel/Peritoneum: There is a small amount of free air in the abdomen, likely within acceptable range given recent . However, in the right paracolic gutter, there is an extraluminal fluid and ai r collection posterior to the ascending colon measuring 4.9 cm in axial dimension and 7.4 cm in crani ocaudal dimension. This is adjacent to the appendix. The appendix is not particularly distended. CT PELVIC: : Postsurgical changes from . Persistent distention of the uterus consistent with recent p regnancy. Lymphatics: No lymphadenopathy. Osseous Structures: No aggressive appearing osseous lesions. Additional Findings: None IMPRESSION: 1. Fluid and air collection in the right pericolic gutter posterior to the ascending colon suggestive of abscess. The adjacent appendix is not distended but the findings could be seen with ruptured appe ndicitis with secondary abscess formation. Findings discussed with Dr. Vicente at 3:25 PM. Signer Name: Boby Espinoza MD Signed: 05/26/2022 4:25 PM Workstation Name: [id number]
[2022-05-26] MEDS ORDERED: MORPHINE 2 MG/1 ML INJ IV ONE (17:56)
--- NOTE | 2022-05-26 18:01 | History and Physical Report ---
History of Present Illness Chief complaint: My stomach hurts History of present illness: 31 YO Female with no past medical history presents to ED for evaluation. Patient reports "my stomach hurts". Patient states that she has experienced pain in her abdomen over the past 3 days with worsening symptoms over the past 2 days since discharge from the hospital. Patient states that her pain is 7/10, constant, stabbing, worsened with movement, relieved somewhat with no movement. Patient transported to [facility] via private vehicle for further care and evaluation of the aforementioned symptoms. The patient was seen and evaluated in the emergency department. All lab and imaging studies reviewed. The patient was found to have clinical symptoms consistent with acute peritonitis complicated by sepsis. Patient with CT scan of the abdomen and pelvis and was found to have a perforated viscus with suspected intra-abdominal abscess. Patient admitted to [facility] and initiated on sepsis protocol. Surgery team consulted in ED. Patient taken urgently to the operating room for surgical intervention. Patient denies fever, chills, chest pain, palpitation, adductive cough, skin rash, recent contact, known exposure to COVID-19. No prior admission for review. No medication listed at time of admission for reconciliation. Advanced care planning conducted in ED. Past History Past Medical History: No medical history, other (Reviewed) Past Surgical History: Social history: single. denies: smoking, alcohol abuse, prescription drug abuse Family history: no significant family history, other (Reviewed) Medications and Allergies Allergies Allergy/AdvReac Type Severity Reaction Status Date / Time Latex, Natural Rubber Allergy Severe Rash Verified 11/29/13 15:14 Home Medications Medication Instructions Recorded Confirmed Last Taken Type No Known Home Medications [No 11/29/13 12/26/13 Unknown History Reported Home Medications] Active Meds: Active Medications Levofloxacin/Dextrose (Levaquin 750mg/150ml) 750 mg in 150 mls @ 100 mls/hr IV ONCE ONE; Protocol Stop: 05/26/22 18:06 Review of Systems Constitutional: no weight loss, no weight gain, no fever, no sweats Ears, nose, mouth and throat: no ear pain, no tinnitis, no decreased hearing, no nasal congestion Breasts: no change in shape, no swelling, no mass Cardiovascular: no chest pain, no orthopnea, no palpitations, no edema, no syncope Respiratory: no cough Gastrointestinal: abdominal pain, no hematemesis, no coffee ground emesis, no BRBPR, no hematochezia Genitourinary Female: no pelvic pain, no flank pain, no dysuria, no urinary frequency, no urgency Rectal: no pain, no incontinence, no bleeding Musculoskeletal: no neck stiffness, no neck pain, no shooting arm pain, no arm numbness/tingling, no low back pain, no shooting leg pain Integumentary: no rash, no pruritis, no redness, no sores, no wounds Neurological: no head injury, no transient paralysis, no parathesias, no numbness, no tingling, no syncope Psychiatric: no anxiety, no memory loss, no change in sleep habits, no sleep disturbances, no hypersomnia, no change in appetite, no change in libido, no suicidal ideation, no disorientation Endocrine: no cold intolerance, no heat intolerance, no excessive thirst, no polydipsia, no polyuria, no excessive sweating Hematologic/Lymphatic: no easy bruising, no easy bleeding Allergic/Immunologic: no urticaria, no allergic rhinitis, no wheezing Exam - Constitutional Vitals: Temp Pulse Resp BP Pulse Ox 98.6 F 101 H 18 112/67 99 05/26/22 17:06 05/26/22 17:06 05/26/22 17:06 05/26/22 17:06 05/26/22 17:06 General appearance: Present: severe distress - EENT Eyes: Present: PERRL ENT: hearing intact, clear oral mucosa - Neck Neck: Present: supple, normal ROM - Respiratory Respiratory effort: normal Respiratory: bilateral: CTA - Cardiovascular Heart Sounds: Present: S1 & S2. Absent: rub, click - Extremities Extremities: pulses symmetrical, No edema Peripheral Pulses: within normal limits - Abdominal General gastrointestinal: Present: soft, tender, non-distended, hypoactive bowel sounds Female genitourinary: Present: normal - Integumentary Integumentary: Present: clear, warm, dry - Musculoskeletal Musculoskeletal: gait normal, strength equal bilaterally - Psychiatric Psychiatric: appropriate mood/affect, intact judgment & insight - Neurologic Neurologic: CNII-XII intact, moves all extremities HEART Score - HEART Score Troponin: Troponin T < 0.010 ng/mL (0.00-0.029) 05/26/22 13:38 Results - Labs CBC & Chem 7: 05/26/22 13:38 05/26/22 13:38 Labs: Abnormal lab results 05/26/22 05/26/22 05/26/22 Range/Units 13:38 13:38 13:38 Hgb 8.3 L (10.1-14.3) gm/dl Hct 26.5 L (30.3-42.9) % MCV 69 L (79-97) fl MCH 22 L (28-32) pg RDW 17.9 H (13.2-15.2) % Plt Count 474 H (140-440) K/mm3 Potassium 5.2 H D (3.6-5.0) mmol/L BUN 20 H (7-17) mg/dL Lactic Acid (0.7-2.0) mmol/L Magnesium 1.60 L (1.7-2.3) mg/dL Alkaline Phosphatase 356 H (35-129) units/L NT-Pro-B Natriuret Pep 1043 H (0-450) pg/mL Albumin 3.0 L (3.9-5) g/dL Urine WBC (Auto) (0.0-6.0) /HPF 05/26/22 05/26/22 05/26/22 Range/Units 13:38 13:57 16:03 Hgb (10.1-14.3) gm/dl Hct (30.3-42.9) % MCV (79-97) fl MCH (28-32) pg RDW (13.2-15.2) % Plt Count (140-440) K/mm3 Potassium (3.6-5.0) mmol/L BUN (7-17) mg/dL Lactic Acid 3.70 H* 2.70 H* (0.7-2.0) mmol/L Magnesium (1.7-2.3) mg/dL Alkaline Phosphatase (35-129) units/L NT-Pro-B Natriuret Pep (0-450) pg/mL Albumin (3.9-5) g/dL Urine WBC (Auto) 57.0 H (0.0-6.0) /HPF Assessment and Plan - Patient Problems (1) Sepsis Current Visit: Yes Status: Acute Plan to address problem: Sepsis protocol: IV antibiotic therapy, IV fluid resuscitation therapy, maintain mean arterial pressure greater than or equal to 65, monitor urine balance, serial lactic acid level, blood culture, supportive care. (2) Perforated viscus Current Visit: Yes Status: Acute Plan to address problem: CT scan abdomen and pelvis, CT scan, serial abdominal exam, patient taken to OR for surgical intervention. (3) Intra-abdominal abscess Current Visit: Yes Status: Acute Plan to address problem: CT scan abdomen pelvis, serial abdominal exam, IV antibiotic therapy, surgery team consulted for surgical intervention. (4) Peritonitis Current Visit: Yes Status: Acute Plan to address problem: Surgery team consulted, IV antibiotic therapy, IV fluid resuscitation therapy, bowel rest, supportive care, pain control. (5) DVT prophylaxis Current Visit: Yes Status: Acute Plan to address problem: SCD to bilateral lower extremities while in bed (6) Advance care planning Current Visit: Yes Status: Acute Plan to address problem: Disease education done, care plan discussed, diagnoses discussed, prognosis discussed, patient is full code. Patient knowledges understanding and agreement with care plan, +30 minutes. (7) Preventative health care Current Visit: Yes Status: Acute Plan to address problem: Patient counseled regarding outpatient follow-up with primary care physician for all age and risk factor appropriate screening test. +30 minutes.
[2022-05-26] MEDS ORDERED: ALBUTEROL 2.5 MG/3 ML NEBU IH PRN (18:06)
[2022-05-26] MEDS ORDERED: ACETAMINOPHEN 325 MG TAB PO PRN ×2 (18:06→18:19)
[2022-05-26] MEDS ORDERED: HYDROmorphone 0.5 MG/0.5 ML INJ IV PRN ×3 (18:06→18:33)
[2022-05-26] MEDS ORDERED: SODIUM CHLORIDE 0.9% 1000 ML IV SOLN IV ONE (18:19)
[2022-05-26] MEDS ORDERED: BUPIVACAINE/PF (0.5%) 5 MG/1 ML 30 ML VIAL INFILTRATI ONE ×2 (18:30→19:47)
[2022-05-26] MEDS ORDERED: LIDOCAINE (2%) 20 MG/1 ML VIAL 20 ML MDV INFILTRATI ONE ×2 (18:30→19:46)
--- NOTE | 2022-05-26 18:30 | Anesthesia Day of Surgery ---
Anesthesia Day of Surgery - Day of Surgery Patient Examined: Yes Patient H&P Reviewed: Yes Patient is NPO: Yes
[2022-05-26] MEDS ORDERED: ONDANSETRON 4 MG/2 ML INJ IV PRN ×2 (18:33→20:24)
--- NOTE | 2022-05-26 18:35 | Consultation ---
History of Present Illness Consult date: 05/26/22 Reason for consult: abdominal pain Chief complaint: abdominal pain - History of present illness History of present illness: 31-year-old female who recently underwent emergency section on 2. The patient has a history of 3 prior C-sections. The patient states that over the past 24 hours she is experienced increasing abdominal pain. The pain is localized to the right lower quadrant but then radiates diffusely to the rest of the abdomen, up to the chest and into the right shoulder. She also complains of increasing shortness of breath. Afebrile at home but Fever of 1004. in ER. She has been tolerating a diet with intermittent nausea. +Flatus but no BM since csection. She is urinating without difficulty. Patient states her pain is persistent after being administered morphine. No alleviating factors. Moving side to side, deep breathing worsens pain. Past History Past Medical History: No medical history, other (Reviewed) Past Surgical History: Social history: single. denies: smoking, alcohol abuse, prescription drug abuse Family history: no significant family history, other (Reviewed) Medications and Allergies Allergies Allergy/AdvReac Type Severity Reaction Status Date / Time Latex, Natural Rubber Allergy Severe Rash Verified 11/29/13 15:14 Home Medications Medication Instructions Recorded Confirmed Last Taken Type No Known Home Medications [No 11/29/13 12/26/13 Unknown History Reported Home Medications] Active Meds: Active Medications Acetaminophen (Acetaminophen 325 Mg Tab) 650 mg PO Q6H PRN PRN Reason: Pain MILD(1-3)/Fever >100.5/NOVAK Acetaminophen (Acetaminophen 325 Mg Tab) 650 mg PO Q6H PRN PRN Reason: Pain, Mild (1-3) Albuterol (Albuterol 2.5 Mg/3 Ml Nebu) 2.5 mg IH Q3HRT PRN PRN Reason: Shortness Of Breath Hydromorphone HCl (Hydromorphone 0.5 Mg/0.5 Ml Inj) 0.5 mg IV Q13H PRN PRN Reason: Pain , Severe (7-10) Hydromorphone HCl (Hydromorphone 0.5 Mg/0.5 Ml Inj) 0.25 mg IV Q4H PRN PRN Reason: Pain, Moderate (4-6) Cefepime HCl (Cefepime/Ns 2 Gm/100 Ml) 2 gm in 100 mls @ 200 mls/hr IV Q8H KOMAL; Protocol Oxycodone/Acetaminophen (Oxycodone /Acetaminophen 5-325mg Tab) 1 tab PO Q6H PRN PRN Reason: Pain, Moderate (4-6) Sodium Chloride (Sodium Chloride 0.9% 10 Ml Flush Syringe) 10 ml IV BID KOMAL Sodium Chloride (Sodium Chloride 0.9% 10 Ml Flush Syringe) 10 ml IV PRN PRN PRN Reason: LINE FLUSH Sodium Chloride (Sodium Chloride 0.9% 1000 Ml Iv Soln) 2,450 ml 30 ml/kg (2450 ml) IV ONCE ONE Stop: 05/26/22 18:20 Review of Systems All systems: negative (10 point ROS performed and negative except for that listed in HPI) Exam Vital Signs Temp Pulse Resp BP Pulse Ox 98.3 F 107 H 24 145/114 98 05/26/22 11:49 05/26/22 11:49 05/26/22 11:49 05/26/22 11:49 05/26/22 11:49 Narrative exam: Gen.: Awake, alert, oriented x3. Pale. Moderate distress due to pain ENT: Trachea midline. No lymphadenopathy. No scleral icterus or conjunctival pallor CV: S1, S2 present Respiratory: No audible wheezes. Splinted breathing Abdomen: Soft, mildly distended, diffusely tender to palpation with rebound and voluntary guarding in the right lower abdomen. Extremities: No clubbing, cyanosis, edema Results - Labs 05/26/22 13:38 05/26/22 13:38 Abnormal lab results 05/26/22 05/26/22 05/26/22 Range/Units 13:38 13:38 13:38 Hgb 8.3 L (10.1-14.3) gm/dl Hct 26.5 L (30.3-42.9) % MCV 69 L (79-97) fl MCH 22 L (28-32) pg RDW 17.9 H (13.2-15.2) % Plt Count 474 H (140-440) K/mm3 Potassium 5.2 H D (3.6-5.0) mmol/L BUN 20 H (7-17) mg/dL Lactic Acid (0.7-2.0) mmol/L Magnesium 1.60 L (1.7-2.3) mg/dL Alkaline Phosphatase 356 H (35-129) units/L NT-Pro-B Natriuret Pep 1043 H (0-450) pg/mL Albumin 3.0 L (3.9-5) g/dL Urine WBC (Auto) (0.0-6.0) /HPF 05/26/22 05/26/22 05/26/22 Range/Units 13:38 13:57 16:03 Hgb (10.1-14.3) gm/dl Hct (30.3-42.9) % MCV (79-97) fl MCH (28-32) pg RDW (13.2-15.2) % Plt Count (140-440) K/mm3 Potassium (3.6-5.0) mmol/L BUN (7-17) mg/dL Lactic Acid 3.70 H* 2.70 H* (0.7-2.0) mmol/L Magnesium (1.7-2.3) mg/dL Alkaline Phosphatase (35-129) units/L NT-Pro-B Natriuret Pep (0-450) pg/mL Albumin (3.9-5) g/dL Urine WBC (Auto) 57.0 H (0.0-6.0) /HPF 05/26/22 Range/Units 17:31 Hgb (10.1-14.3) gm/dl Hct (30.3-42.9) % MCV (79-97) fl MCH (28-32) pg RDW (13.2-15.2) % Plt Count (140-440) K/mm3 Potassium (3.6-5.0) mmol/L BUN (7-17) mg/dL Lactic Acid 2.70 H* (0.7-2.0) mmol/L Magnesium (1.7-2.3) mg/dL Alkaline Phosphatase (35-129) units/L NT-Pro-B Natriuret Pep (0-450) pg/mL Albumin (3.9-5) g/dL Urine WBC (Auto) (0.0-6.0) /HPF Diabetes panel 05/26/22 Range/Units 13:38 Sodium 138 (137-145) mmol/L Potassium 5.2 H D (3.6-5.0) mmol/L Chloride 99.0 (98-107) mmol/L Carbon Dioxide 22 (22-30) mmol/L BUN 20 H (7-17) mg/dL Creatinine 0.8 (0.6-1.2) mg/dL Glucose 76 (65-100) mg/dL Calcium 9.0 (8.4-10.2) mg/dL AST 17 (5-40) units/L ALT 17 (7-56) units/L Alkaline Phosphatase 356 H (35-129) units/L Total Protein 6.4 (6.3-8.2) g/dL Albumin 3.0 L (3.9-5) g/dL Calcium panel 05/26/22 Range/Units 13:38 Calcium 9.0 (8.4-10.2) mg/dL Albumin 3.0 L (3.9-5) g/dL Pituitary panel 05/26/22 Range/Units 13:38 Sodium 138 (137-145) mmol/L Potassium 5.2 H D (3.6-5.0) mmol/L Chloride 99.0 (98-107) mmol/L Carbon Dioxide 22 (22-30) mmol/L BUN 20 H (7-17) mg/dL Creatinine 0.8 (0.6-1.2) mg/dL Glucose 76 (65-100) mg/dL Calcium 9.0 (8.4-10.2) mg/dL Adrenal panel 05/26/22 Range/Units 13:38 Sodium 138 (137-145) mmol/L Potassium 5.2 H D (3.6-5.0) mmol/L Chloride 99.0 (98-107) mmol/L Carbon Dioxide 22 (22-30) mmol/L BUN 20 H (7-17) mg/dL Creatinine 0.8 (0.6-1.2) mg/dL Glucose 76 (65-100) mg/dL Calcium 9.0 (8.4-10.2) mg/dL Total Bilirubin 0.80 (0.1-1.2) mg/dL AST 17 (5-40) units/L ALT 17 (7-56) units/L Alkaline Phosphatase 356 H (35-129) units/L Total Protein 6.4 (6.3-8.2) g/dL Albumin 3.0 L (3.9-5) g/dL - Imaging Abdominal x-ray: report reviewed, image reviewed CT scan - abdomen: report reviewed, image reviewed CT scan - chest: report reviewed, image reviewed CT scan - pelvis: report reviewed, image reviewed Assessment and Plan 31 yo F with 1. peritonitis, intraabdominal abscess 2. hx csection 05/21/22 Plan: 1. NPO 2. IVF 3. IV abx 4. prn pain control 5. DVT ppx 6. All labs and imaging reviewed. Patient tachycardic, with elevated lactate, diffuse abdominal pain with peritonitis. CT scan findings concerning for right- sided pericolonic abscess and a small amount of pneumoperitoneum. Due to the significant degree of abdominal pain, will recommend OR for diagnostic laparoscopy, possible exploratory laparotomy, possible colon resection. I discussed this with the patient in detail along with her significant other. They are agreeable to proceed. Consent obtained. Discussed with Dr. Mora. Thank you for this consultation. Please call with any questions or concerns.
[2022-05-26] MEDS ORDERED: metroNIDAZOLE/NS 500 MG/100 ML 500 MG/100 ML BAG IV ONE (18:36)
--- NOTE | 2022-05-26 18:37 | Anesthesia Consultation ---
Anesthesia Consult and Med Hx Date of service: 05/26/22 - Airway Anesthetic Teeth Evaluation: Chipped ROM Head & Neck: Adequate Mental/Hyoid Distance: Adequate Mallampati Class: Class II Intubation Access Assessment: Good - Pre-Operative Health Status ASA Pre-Surgery Classification: ASA3, Emergency Proposed Anesthetic Plan: General ( ) - Pulmonary Hx Smoking: No Hx Asthma: No Hx Respiratory Symptoms: No SOB: No COPD: No Hx Pneumonia: No Hx Sleep Apnea: No - Cardiovascular System Hx Hypertension: Yes (Had preeclampsia and still on labetalol) Hx Coronary Artery Disease: No Hx Heart Attack/AMI: No Hx Angina: No Hx Percutaneous Transluminal Coronary Angioplasty (PTCA): No Hx Cardia Arrhythmia: No Hx Pacemaker: No Hx Internal Defibrillator: No Hx Valvular Heart Disease: No Hx Heart Murmur: No Hx Peripheral Vascular Disease: No - Central Nervous System Hx Neuromuscular Disorder: No Hx Seizures: Yes CVA: No Hx Psychiatric Problems: No - Gastrointestinal Hx Ulcer: No Hx Gastroesophageal Reflux Disease: No - Endocrine Hx Renal Disease: No (K 5.2) Hx End Stage Renal Disease: No Hx Cirrhosis: No Hx Liver Disease: No Hx Insulin Dependent Diabetes: No Hx Non-Insulin Dependent Diabetes: No Hx Thyroid Disease: No Hx Hypothyroidism: No Hx Hyperthyroidism: No - Hematic Hx Anemia: Yes (8.3/26.5) Hx Sickle Cell Disease: No - Other Systems Hx Alcohol Use: No Hx Substance Use: No Hx Cancer: No Hx Obesity: No - Additional Comments Anesthesia Medical History Comments: Pt had emergent C/S [id number] for preeclampsia
[2022-05-26] MEDS ORDERED: propofoL 200 MG/20 ML VIAL IV ONE (18:46)
[2022-05-26] MEDS ORDERED: fentaNYL 100 MCG/2 ML INJ ONE (18:46)
[2022-05-26 18:49] LABS: INR 0.97 (0.87-1.13); Partial Thromboplastin Time 26.4 Sec. (24.2-36.6)
[2022-05-26] MEDS ORDERED: MIDAZOLAM 2 MG/2 ML INJ ONE ×2 (18:54→20:30)
[2022-05-26] MEDS ORDERED: SODIUM CHLORIDE 0.9% 1000 ML 1,000 ML ONE (19:39)
[2022-05-26] MEDS ORDERED: LIDOCAINE MPF (2%) 20 MG/1 ML VIAL 5 ML ONE (19:39)
[2022-05-26] MEDS ORDERED: dexAMETHasone 20 MG/5 ML VIAL ONE (19:39)
[2022-05-26] MEDS ORDERED: ONDANSETRON 4 MG/2 ML INJ ONE (19:39)
[2022-05-26] MEDS ORDERED: ROCURONIUM 50 MG/5 ML INJ IV ONE (19:39)
[2022-05-26] MEDS ORDERED: SODIUM CHLORIDE 0.9% IRR 1,500 ML BOTTLE IR ONE (19:47)
--- NOTE | 2022-05-26 20:27 | Post Operative Note ---
Pre-op diagnosis: peritonitis, intraabdominal abscess Post-op diagnosis: same Findings: 1. Inflammatory adhesions in the right mid and upper abdomen from omentum and right colon to anterior abdominal wall, hepatic flexure to liver. 2. Moderate sized abscess cavity in the right paracolic gutter containing hem atoma. 3. No obvious colon perforation 4. Appendix not identified Procedure: dx laparoscopy, lysis of adhesions, evacuation and debridement of intraabdominal abscess, drain placement Anesthesia: GETA, local Surgeon: SHALINI PICKETT [employer] Deburrer: JYALA LEVINE Estimated blood loss: minimal Pathology: list (intraabdominal abscess culture) Specimen disposition: to lab Condition: stable Disposition: PACU
[2022-05-26] MEDS: HYDROmorphone 0.5 MG/0.5 ML INJ IV PRN (21:24)
--- NOTE | 2022-05-26 21:41 | Post Anesthesia Evaluation ---
- Post Anesthesia Evaluation Patient Participated: Yes Airway Patent: Yes Stable Respiratory Function: Yes Nausea/Vomiting: No Temp > 96.8F: Yes Pain Manageable: Yes Adequeate Hydration: Yes Anesthesia Complications: No Block Receding Appropriately: Not Applicable Patient on Ventilator: No Other Comments: Patient recovered by anesthesia in PACU. Vitals remained stable with spO2 98% or greater on 2L NC throughout time in PACU. Patient easily arousable and denies any complaints at this time. Transfered to room 267 and report given to RN at bedside.
[2022-05-26] MEDS: CEFEPIME/NS 2 GM/100 ML 2 GM/100 ML BAG IV SCH (21:46)
[2022-05-26] MEDS ORDERED: LORazepam 2 MG/ML VIAL IV ONE (23:56)
[2022-05-27] MEDS: HYDROmorphone 0.5 MG/0.5 ML INJ IV PRN ×4 (02:50→20:25)
[2022-05-27] MEDS: CEFEPIME/NS 2 GM/100 ML 2 GM/100 ML BAG IV SCH ×3 (03:18→18:35)
[2022-05-27 04:33] LABS: Hematocrit 22.6 % (30.3-42.9); Mean Corpuscular HGB Conc 31 % (30-34); Platelet Count 473 K/mm3 (140-440); Red Blood Count 3.34 M/mm3 (3.65-5.03); Red Cell Distribution Width 17.8 % (13.2-15.2)
[2022-05-27 04:36] LABS: Mean Corpuscular Volume 68 fl (79-97)
[2022-05-27 05:00] LABS: Alanine Aminotransferase 12 units/L (7-56); Albumin 2.5 g/dL (3.9-5); Blood Urea Nitrogen 16 mg/dL (7-17); Calcium 7.6 mg/dL (8.4-10.2); Hemolysis Index 0
[2022-05-27 05:22] LABS: Band Neutrophils # (Manual) 0.6 K/mm3; Basophils % (Manual) 0 % (0.0-1.8); Eosinophils % (Manual) 0 % (0.0-4.3); Total Cells Counted 100
[2022-05-27 05:23] LABS: Hypochromasia 2+; Platelet Estimate Consistent w Auto
[2022-05-27 05:34] LABS: BUN/Creatinine Ratio 23
[2022-05-27] MEDS ORDERED: LORazepam 2 MG/ML VIAL IV ONE (07:18)
--- NOTE | 2022-05-27 08:15 | Progress Note ---
Assessment and Plan Assessment and plan: History of present illness: 31 YO Female with no past medical history presents to ED for evaluation. Patient reports "my stomach hurts". Patient states that she has experienced pain in her abdomen over the past 3 days with worsening symptoms over the past 2 days since discharge from the hospital. Patient states that her pain is 7/10, constant, stabbing, worsened with movement, relieved somewhat with no movement. Patient transported to [facility] via private vehicle for further care and evaluation of the aforementioned symptoms. The patient was seen and evaluated in the [facility]. All lab and imaging studies reviewed. The patient was found to have clinical symptoms consistent with acute peritonitis complicated by sepsis. Patient with CT scan of the abdomen and pelvis and was found to have a perforated viscus with suspected intra-abdominal abscess. Patient admitted to [facility] and initiated on sepsis protocol. Surgery team consulted in ED. Patient taken urgently to the operating room for surgical intervention. Patient denies fever, chills, chest pain, palpitation, adductive cough, skin rash, recent contact, known exposure to COVID-19. No prior admission for review. No medication listed at time of admission for reconciliation. Advanced care plann ing conducted in ED. Assessment: #Sepsis POA - Febrile to 100.4 with a white count 29.7 #Intra-abdominal abscess s/p diagnostic laparoscopy, lysis of adhesions and pericolonic abscess drainage on 05/26. - 05/26 CTAP: Fluid air collection in right pericolonic gutter posterior to ascending colon suggestive of abscess. Adjacent appendix not distended findings consistent with ruptured appendix with secondary abscess formation. #Peritonitis #Likely perforated appendicitis #History of emergent section #Advance care planning Disease education conducted, care plan discussed, diagnoses discussed, prognosis discussed, patient is full code, patient acknowledges understanding and agree with care plan, +30 minutes. Plan: - trend wbc, fever curve - bcx, surgical cx - ID consulted, recs noted - Gen surgery following, recs noted - DELMY drain in place - OOB, ambulate. may consult PT/OT if patient is too weak - maintainence IVF - pain control with IV toradol. - IV abx: cefepime, flagyl IV ordered . ok to d/c vanco as GNR suspected etiology. The high probability of a clinically significant, sudden or life threatening deterioration of the [multi] system(s) required my full and direct attention, intervention and personal management. The aggregate critical care time was [60] minutes. This time is in addition to time spent performing reported procedures but includes the following: [x] Data Review and interpretation [x] Patient assessment and monitoring of vital signs [x] Documentation [x] Medication orders and management History Interval history: Resting comfortably. Mild abdominal ternderness noted toño in LLQ. DELMY drain noted with serosanguinous fluid. Hospitalist Physical - Physical exam Narrative exam: General appearance: Present: severe distress - EENT Eyes: Present: PERRL ENT: hearing intact, clear oral mucosa - Neck Neck: Present: supple, normal ROM - Respiratory Respiratory effort: normal Respiratory: bilateral: CTA - Cardiovascular Heart Sounds: Present: S1 & S2. Absent: rub, click - Extremities Extremities: pulses symmetrical, No edema Peripheral Pulses: within normal limits - Abdominal General gastrointestinal: Present: soft, tender, non-distended, hypoactive bowel sounds Female genitourinary: Present: normal - Integumentary Integumentary: Present: clear, warm, dry incision wound clean, DELMY drain in place. - Musculoskeletal Musculoskeletal: gait normal, strength equal bilaterally - Psychiatric Psychiatric: appropriate mood/affect, intact judgment & insight - Neurologic Neurologic: CNII-XII intact, moves all extremities - Constitutional Vitals: Temp Pulse Resp BP Pulse Ox 100 F H 106 H 17 115/71 94 05/27/22 03:44 05/27/22 06:00 05/27/22 06:00 05/27/22 06:00 05/27/22 06:00 General appearance: Present: severe distress HEART Score - HEART Score Troponin: Troponin T < 0.010 ng/mL (0.00-0.029) 05/27/22 04:06 Results - Labs CBC & Chem 7: 05/27/22 04:06 05/27/22 04:06 Labs: Laboratory Last Values WBC 29.7 K/mm3 (4.5-11.0) H 05/27/22 04:06 RBC 3.34 M/mm3 (3.65-5.03) L 05/27/22 04:06 Hgb 7.0 gm/dl (10.1-14.3) L 05/27/22 04:06 Hct 22.6 % (30.3-42.9) L 05/27/22 04:06 MCV 68 fl (79-97) L 05/27/22 04:06 MCH 21 pg (28-32) L 05/27/22 04:06 MCHC 31 % (30-34) 05/27/22 04:06 RDW 17.8 % (13.2-15.2) H 05/27/22 04:06 Plt Count 473 K/mm3 (140-440) H 05/27/22 04:06 Add Manual Diff Complete 05/27/22 04:06 Total Counted 100 05/27/22 04:06 Seg Neutrophils % [employer] Technician 05/27/22 04:06 Seg Neuts % (Manual) 94.0 % (40.0-70.0) H 05/27/22 04:06 Band Neutrophils % 2.0 % 05/27/22 04:06 Lymphocytes % (Manual) 3.0 % (13.4-35.0) L 05/27/22 04:06 Reactive Lymphs % (Man) 0 % 05/27/22 04:06 Monocytes % (Manual) 1.0 % (0.0-7.3) 05/27/22 04:06 Eosinophils % (Manual) 0 % (0.0-4.3) 05/27/22 04:06 Basophils % (Manual) 0 % (0.0-1.8) 05/27/22 04:06 Metamyelocytes % 0 % 05/27/22 04:06 Myelocytes % 0 % 05/27/22 04:06 Promyelocytes % 0 % 05/27/22 04:06 Blast Cells % 0 % 05/27/22 04:06 Nucleated RBC % 1.0 % (0.0-0.9) H 05/27/22 04:06 Seg Neutrophils # Man 27.9 K/mm3 (1.8-7.7) H 05/27/22 04:06 Band Neutrophils # 0.6 K/mm3 05/27/22 04:06 Lymphocytes # (Manual) 0.9 K/mm3 (1.2-5.4) L 05/27/22 04:06 Abs React Lymphs (Man) 0.0 K/mm3 05/27/22 04:06 Monocytes # (Manual) 0.3 K/mm3 (0.0-0.8) 05/27/22 04:06 Eosinophils # (Manual) 0.0 K/mm3 (0.0-0.4) 05/27/22 04:06 Basophils # (Manual) 0.0 K/mm3 (0.0-0.1) 05/27/22 04:06 Metamyelocytes # 0.0 K/mm3 05/27/22 04:06 Myelocytes # 0.0 K/mm3 05/27/22 04:06 Promyelocytes # 0.0 K/mm3 05/27/22 04:06 Blast Cells # 0.0 K/mm3 05/27/22 04:06 WBC Morphology Not Reportable 05/27/22 04:06 Hypersegmented Neuts Not Reportable 05/27/22 04:06 Hyposegmented Neuts Not Reportable 05/27/22 04:06 Hypogranular Neuts Not Reportable 05/27/22 04:06 Smudge Cells Not Reportable 05/27/22 04:06 Toxic Granulation Not Reportable 05/27/22 04:06 Toxic Vacuolation Not Reportable 05/27/22 04:06 Dohle Bodies Not Reportable 05/27/22 04:06 Pelger-Huet Anomaly Not Reportable 05/27/22 04:06 Mary Rods Not Reportable 05/27/22 04:06 Platelet Estimate Consistent w auto 05/27/22 04:06 Clumped Platelets Not Reportable 05/27/22 04:06 Plt Clumps, EDTA Not Reportable 05/27/22 04:06 Large Platelets Not Reportable 05/27/22 04:06 Giant Platelets Not Reportable 05/27/22 04:06 Platelet Satelliting Not Reportable 05/27/22 04:06 Plt Morphology Comment Not Reportable 05/27/22 04:06 RBC Morphology Not Reportable 05/27/22 04:06 Dimorphic RBCs Not Reportable 05/27/22 04:06 Polychromasia Not Reportable 05/27/22 04:06 Hypochromasia 2+ 05/27/22 04:06 Poikilocytosis Not Reportable 05/27/22 04:06 Anisocytosis Not Reportable 05/27/22 04:06 Microcytosis 1+ 05/27/22 04:06 Macrocytosis Not Reportable 05/27/22 04:06 Spherocytes Not Reportable 05/27/22 04:06 Pappenheimer Bodies Not Reportable 05/27/22 04:06 Sickle Cells Not Reportable 05/27/22 04:06 Target Cells Not Reportable 05/27/22 04:06 Tear Drop Cells Not Reportable 05/27/22 04:06 Ovalocytes Not Reportable 05/27/22 04:06 Helmet Cells Not Reportable 05/27/22 04:06 [place] Bodies Not Reportable 05/27/22 04:06 [place] Rings Not Reportable 05/27/22 04:06 [place] Cells Not Reportable 05/27/22 04:06 Bite Cells Not Reportable 05/27/22 04:06 Crenated Cell Not Reportable 05/27/22 04:06 Elliptocytes Not Reportable 05/27/22 04:06 Acanthocytes (Spur) Not Reportable 05/27/22 04:06 Rouleaux Not Reportable 05/27/22 04:06 Hemoglobin C Crystals Not Reportable 05/27/22 04:06 Schistocytes Not Reportable 05/27/22 04:06 Malaria parasites Not Reportable 05/27/22 04:06 [place] Bodies Not Reportable 05/27/22 04:06 Hem Pathologist Commnt No 05/27/22 04:06 PT 13.9 Sec. (12.2-14.9) 05/26/22 17:31 INR 0.97 (0.87-1.13) 05/26/22 17:31 APTT 26.4 Sec. (24.2-36.6) 05/26/22 17:31 Sodium 137 mmol/L (137-145) 05/27/22 04:06 Potassium 5.2 mmol/L (3.6-5.0) H D 05/26/22 13:38 Chloride 99.0 mmol/L (98-107) 05/26/22 13:38 Carbon Dioxide 23 mmol/L (22-30) 05/27/22 04:06 Anion Gap 22 mmol/L 05/26/22 13:38 BUN 16 mg/dL (7-17) 05/27/22 04:06 Creatinine 0.7 mg/dL (0.6-1.2) 05/27/22 04:06 Estimated GFR > 60 ml/min 05/27/22 04:06 BUN/Creatinine Ratio 23 % 05/27/22 04:06 Glucose 117 mg/dL (65-100) H 05/27/22 04:06 Lactic Acid 1.30 mmol/L (0.7-2.0) 05/27/22 04:06 Calcium 7.6 mg/dL (8.4-10.2) L D 05/27/22 04:06 Magnesium 1.60 mg/dL (1.7-2.3) L 05/26/22 13:38 Total Bilirubin 0.70 mg/dL (0.1-1.2) 05/27/22 04:06 AST 12 units/L (5-40) 05/27/22 04:06 ALT 12 units/L (7-56) 05/27/22 04:06 Alkaline Phosphatase 336 units/L (35-129) H 05/27/22 04:06 Troponin T < 0.010 ng/mL (0.00-0.029) 05/27/22 04:06 NT-Pro-B Natriuret Pep 1043 pg/mL (0-450) H 05/26/22 13:38 Total Protein 5.3 g/dL (6.3-8.2) L 05/27/22 04:06 Albumin 2.5 g/dL (3.9-5) L 05/27/22 04:06 Albumin/Globulin Ratio 0.9 % 05/27/22 04:06 Urine Color Red (Yellow) 05/26/22 13:57 Urine Turbidity Hazy (Clear) 05/26/22 13:57 Specific [place] (Man) 1.015 (1.003-1.030) 05/26/22 13:57 Ur Protein (Man) 2+ mg/dL (Negative) 05/26/22 13:57 Ur Ketones (Man) 5mg/dl (Negative) 05/26/22 13:57 Ur Nitrite (Man) Negative (Negative) 05/26/22 13:57 Ur Reducing Substances Not Reportable 05/26/22 13:57 Urine Bilirubin (Man) Negative (Negative) 05/26/22 13:57 Urine Ictotest Not Reportable 05/26/22 13:57 Leukocyte Esterase (Man) Trace (Negative) 05/26/22 13:57 Urine WBC (Auto) 57.0 /HPF (0.0-6.0) H 05/26/22 13:57 Urine RBC (Auto) > 182.0 /HPF (0.0-6.0) 05/26/22 13:57 U Epithel Cells (Auto) 3.0 /HPF (0-13.0) 05/26/22 13:57 Urine Bacteria (Auto) 1+ /HPF (Negative) 05/26/22 13:57 Urine RBC (Manual) 3+ (Negative) 05/26/22 13:57 Urine Mucus Few /HPF 05/26/22 13:57 Blood Type O NEGATIVE 05/27/22 04:06 Antibody Screen Positive 05/27/22 04:06 Antibody Identification Anti-D (Passively Aquired) 05/27/22 04:06 Microbiology: Microbiology 05/26/22 13:38 Peripheral/Venous Blood Culture - Preliminary Culture in Progress 05/26/22 13:38 Peripheral/Venous Blood Culture - Preliminary Culture in Progress Maldonado/IV: Voiding Method Bedpan Active Medications - Current Medications Current Medications: Generic Name Dose Route Start Last Admin Trade Name Freq PRN Reason Stop Dose Admin Acetaminophen 650 mg 05/26/22 18:19 Acetaminophen 325 Mg Tab PO Q6H PRN Pain, Mild (1-3) Albuterol 2.5 mg 05/26/22 18:06 Albuterol 2.5 Mg/3 Ml Nebu IH Q3HRT PRN Shortness Of Breath Hydromorphone HCl 0.25 mg 05/26/22 18:19 Hydromorphone 0.5 Mg/0.5 Ml Inj IV Q4H PRN Pain, Moderate (4-6) Hydromorphone HCl 0.25 mg 05/26/22 18:33 Hydromorphone 0.5 Mg/0.5 Ml Inj IV Q10MIN PRN Pain, Moderate (4-6) Hydromorphone HCl 0.5 mg 05/26/22 18:33 Hydromorphone 0.5 Mg/0.5 Ml Inj IV Q10MIN PRN Pain , Severe (7-10) Hydromorphone HCl 0.5 mg 05/26/22 20:24 05/27/22 07:24 Hydromorphone 0.5 Mg/0.5 Ml Inj IV 0.5 mg Q4H PRN Administration Pain , Severe (7-10) Cefepime HCl 2 gm in 100 mls @ 200 mls/hr 05/26/22 19:00 05/27/22 03:18 Cefepime/Ns 2 Gm/100 Ml IV 200 mls/hr Q8H KOMAL Administration Protocol Ondansetron HCl 4 mg 05/26/22 18:33 Ondansetron 4 Mg/2 Ml Inj IV ONCE PRN Nausea And Vomiting Ondansetron HCl 4 mg 05/26/22 20:24 Ondansetron 4 Mg/2 Ml Inj IV Q8H PRN Nausea And Vomiting Oxycodone/Acetaminophen 1 tab 05/26/22 18:06 Oxycodone /Acetaminophen 5-325mg Tab PO Q6H PRN Pain, Moderate (4-6) Sodium Chloride 10 ml 05/26/22 22:00 05/26/22 22:07 Sodium Chloride 0.9% 10 Ml Flush Syringe IV 10 ml BID KOMAL Administration Sodium Chloride 10 ml 05/26/22 18:06 Sodium Chloride 0.9% 10 Ml Flush Syringe IV PRN PRN LINE FLUSH
--- NOTE | 2022-05-27 09:30 | Electrocardiograph Report ---
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
--- NOTE | 2022-05-27 09:35 | Electrocardiograph Report ---
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
[2022-05-27] MEDS ORDERED: VANCOMYCIN PHARMACY TO DOSE IV SCH (10:00)
[2022-05-27] MEDS: metroNIDAZOLE/NS 500 MG/100 ML 500 MG/100 ML BAG IV SCH ×2 (10:45→17:11)
[2022-05-27] MEDS ORDERED: VANCOMYCIN 1,750 MG in SODIUM CHLORIDE 0.9% 500 ML 500 ML IV SCH (11:00)
--- NOTE | 2022-05-27 11:30 | Consultation ---
History of Present Illness - Reason for Consult Consult date: 05/27/22 - History of Present Illness 31-year-old female past medical history none presented to hospital complaining of abdominal pain. She notes began approximate 3 days prior to admission has been worsening since onset. She is found to have perforated viscus with intra- abdominal abscesses, and was taken to the OR yesterday for evacuation of the abscess, with drain placement. Febrile to 100.4 with a white count 29.7 normal renal function. Blood cultures pending, surgical cultures were obtained, pending. Imaging personally reviewed: CT abdomen pelvis: Abscess in the right pericolic gutter Review of Systems: Bold if positive, otherwise negative General: fevers, chills, rigors HEENT: visual disturbance, diplopia, eye pain Respiratory: cough, sputum, hemoptysis, shortness of breath Cardiovascular: chest pain, syncope Gastrointestinal: nausea, vomiting, diarrhea, abdominal pain Genitourinary: dysuria, hematuria, flank pain Musculoskeletal: neck pain, back pain, joint pain, edema Neurologic: headaches, seizures Hematologic: easy bruising or bleeding Endocrine: night sweats, acute weight loss Skin: rash, jaundice, redness Psychiatric: suicidal, homicidal ideation Past History Past Medical History: No medical history, other (Reviewed) Past Surgical History: Social history: single. denies: smoking, alcohol abuse, prescription drug abuse Family history: no significant family history, other (Reviewed) Medications and Allergies Allergies Allergy/AdvReac Type Severity Reaction Status Date / Time Latex, Natural Rubber Allergy Severe Rash Verified 11/29/13 15:14 Home Medications Medication Instructions Recorded Confirmed Last Taken Type No Known Home Medications [No 11/29/13 12/26/13 Unknown History Reported Home Medications] Active Meds: Active Medications Acetaminophen (Acetaminophen 325 Mg Tab) 650 mg PO Q6H PRN PRN Reason: Pain, Mild (1-3) Albuterol (Albuterol 2.5 Mg/3 Ml Nebu) 2.5 mg IH Q3HRT PRN PRN Reason: Shortness Of Breath Hydromorphone HCl (Hydromorphone 0.5 Mg/0.5 Ml Inj) 0.25 mg IV Q4H PRN PRN Reason: Pain, Moderate (4-6) Hydromorphone HCl (Hydromorphone 0.5 Mg/0.5 Ml Inj) 0.5 mg IV Q4H PRN PRN Reason: Pain , Severe (7-10) Last Admin: 05/27/22 07:24 Dose: 0.5 mg Cefepime HCl (Cefepime/Ns 2 Gm/100 Ml) 2 gm in 100 mls @ 200 mls/hr IV Q8H [facility]; Protocol Last Admin: 05/27/22 10:45 Dose: 200 mls/hr Metronidazole (Flagyl 500 Mg/100 Ml) 500 mg in 100 mls @ 100 mls/hr IV Q8H [facility]; Protocol Last Admin: 05/27/22 10:45 Dose: 100 mls/hr Vancomycin HCl 1,750 mg/ (Sodium Chloride) 535 mls @ 333.333 mls/hr IV ONCE@1100 [facility] Stop: 05/27/22 15:00 Last Admin: 05/27/22 10:45 Dose: 333.333 mls/hr Vancomycin HCl 1,500 mg/ (Sodium Chloride) 530 mls @ 333.333 mls/hr IV Q12H [facility] Lorazepam (Lorazepam 2 Mg/Ml Vial) 1 mg IV Q4H PRN PRN Reason: Anxiety Ondansetron HCl (Ondansetron 4 Mg/2 Ml Inj) 4 mg IV Q8H PRN PRN Reason: Nausea And Vomiting Oxycodone/Acetaminophen (Oxycodone /Acetaminophen 5-325mg Tab) 1 tab PO Q6H PRN PRN Reason: Pain, Moderate (4-6) Sodium Chloride (Sodium Chloride 0.9% 10 Ml Flush Syringe) 10 ml IV BID [facility] Last Admin: 05/27/22 10:45 Dose: 10 ml Sodium Chloride (Sodium Chloride 0.9% 10 Ml Flush Syringe) 10 ml IV PRN PRN PRN Reason: LINE FLUSH Physical Examination - Physical Exam Narrative exam: Physical Exam: Constitutional: Alert, cooperative. No acute distress Head, Ears, Nose: Normocephalic, atraumatic. External ears, nose normal Eyes: Conjunctivae/corneas clear. No icterus. No ptosis. Neck: Supple, no meningeal signs Oral: dentition fair, no thrush Cardiovascular: S1, S2 normal. Respiratory: Good air entry, clear to auscultation bilaterally GI: Soft, nontender. Surgical dressing in place. Drain in place. Musculoskeletal: No pedal edema, no cyanosis. Skin: No rash or abscess Hem/Lymphatic: No palpable cervical or supraclavicular nodes. No lymphangitis Psych: Mood ok. Affect normal Neurological: Awake, alert, oriented. No gross abnormality - Constitutional Vitals: Vital Signs Temp Pulse Resp BP Pulse Ox 100 F H 119 H 21 137/71 94 05/27/22 03:44 05/27/22 11:00 05/27/22 11:00 05/27/22 11:00 05/27/22 11:00 Temperature -Last 24 Hours Temperature 100 F Temperature 98.4 F Temperature 98.7 F Temperature 98.7 F Temperature 98.6 F Temperature 100.4 F Temperature 98.3 F Results - Labs CBC & Chem 7: 05/27/22 04:06 05/27/22 04:06 Labs: Abnormal lab results 05/26/22 05/26/22 05/26/22 Range/Units 13:38 13:38 13:38 WBC (4.5-11.0) K/mm3 RBC (3.65-5.03) M/mm3 Hgb 8.3 L (10.1-14.3) gm/dl Hct 26.5 L (30.3-42.9) % MCV 69 L (79-97) fl MCH 22 L (28-32) pg RDW 17.9 H (13.2-15.2) % Plt Count 474 H (140-440) K/mm3 Seg Neuts % (Manual) (40.0-70.0) % Lymphocytes % (Manual) (13.4-35.0) % Nucleated RBC % (0.0-0.9) % Seg Neutrophils # Man (1.8-7.7) K/mm3 Lymphocytes # (Manual) (1.2-5.4) K/mm3 Potassium 5.2 H D (3.6-5.0) mmol/L BUN 20 H (7-17) mg/dL Glucose (65-100) mg/dL Lactic Acid (0.7-2.0) mmol/L Calcium (8.4-10.2) mg/dL Magnesium 1.60 L (1.7-2.3) mg/dL Alkaline Phosphatase 356 H (35-129) units/L NT-Pro-B Natriuret Pep 1043 H (0-450) pg/mL Total Protein (6.3-8.2) g/dL Albumin 3.0 L (3.9-5) g/dL Urine WBC (Auto) (0.0-6.0) /HPF 05/26/22 05/26/22 05/26/22 Range/Units 13:38 13:57 16:03 WBC (4.5-11.0) K/mm3 RBC (3.65-5.03) M/mm3 Hgb (10.1-14.3) gm/dl Hct (30.3-42.9) % MCV (79-97) fl MCH (28-32) pg RDW (13.2-15.2) % Plt Count (140-440) K/mm3 Seg Neuts % (Manual) (40.0-70.0) % Lymphocytes % (Manual) (13.4-35.0) % Nucleated RBC % (0.0-0.9) % Seg Neutrophils # Man (1.8-7.7) K/mm3 Lymphocytes # (Manual) (1.2-5.4) K/mm3 Potassium (3.6-5.0) mmol/L BUN (7-17) mg/dL Glucose (65-100) mg/dL Lactic Acid 3.70 H* 2.70 H* (0.7-2.0) mmol/L Calcium (8.4-10.2) mg/dL Magnesium (1.7-2.3) mg/dL Alkaline Phosphatase (35-129) units/L NT-Pro-B Natriuret Pep (0-450) pg/mL Total Protein (6.3-8.2) g/dL Albumin (3.9-5) g/dL Urine WBC (Auto) 57.0 H (0.0-6.0) /HPF 05/26/22 05/27/22 05/27/22 Range/Units 17:31 04:06 04:06 WBC 29.7 H (4.5-11.0) K/mm3 RBC 3.34 L (3.65-5.03) M/mm3 Hgb 7.0 L (10.1-14.3) gm/dl Hct 22.6 L (30.3-42.9) % MCV 68 L (79-97) fl MCH 21 L (28-32) pg RDW 17.8 H (13.2-15.2) % Plt Count 473 H (140-440) K/mm3 Seg Neuts % (Manual) 94.0 H (40.0-70.0) % Lymphocytes % (Manual) 3.0 L (13.4-35.0) % Nucleated RBC % 1.0 H (0.0-0.9) % Seg Neutrophils # Man 27.9 H (1.8-7.7) K/mm3 Lymphocytes # (Manual) 0.9 L (1.2-5.4) K/mm3 Potassium (3.6-5.0) mmol/L BUN (7-17) mg/dL Glucose 117 H (65-100) mg/dL Lactic Acid 2.70 H* (0.7-2.0) mmol/L Calcium 7.6 L D (8.4-10.2) mg/dL Magnesium (1.7-2.3) mg/dL Alkaline Phosphatase 336 H (35-129) units/L NT-Pro-B Natriuret Pep (0-450) pg/mL Total Protein 5.3 L (6.3-8.2) g/dL Albumin 2.5 L (3.9-5) g/dL Urine WBC (Auto) (0.0-6.0) /HPF Assessment and Plan Cultures: Blood culture no growth so far Surgical drainage culture pending A/P: 31-year-old female no past medical history now with: #Acute sepsis: Present with fevers, leukocytosis. Secondary to intra-abdominal abscess with perforated viscus #Intra-abdominal abscess: Status post intraoperative drainage, drain in place. Awaiting cultures. Recs: -Can stop vancomycin, gram negatives likely causative etiology -Continue cefepime, metronidazole -Follow up blood, surgical cultures Thank you for the consult, we will continue to follow. Shanice Edge MD [facility] ([facility]) O: [phone] F: [phone]
--- NOTE | 2022-05-27 14:28 | Progress Note ---
Assessment and Plan 31 yo F s/p dx lap, NATY, drainage of pericolonic RUQ abscess POD 1 - 1. peritonitis, intraabdominal abscess - likely perforated appendicitis 2. sepsis 2/2 #1 3. hx csection 05/21/22 Plan: 1. CLD -> will adv slowly 2. IVF - change to maintenance 3. IV abx - ID on board 4. prn pain control - will add toradol IV 5. DVT ppx 6. DELMY drain care. Strict I/Os 7. OOB/ambulate 8. IS/pulm toilet 9. CBC, BMP in am Thank you for this consultation. Please call with any questions or concerns. Subjective Date of service: 05/27/22 Narrative: Pt seen and examined. No acute complaints. c/o abdominal pain controlled with current pain regimen. No n/v. [facility] CLD. No f/c,. Objective Vital Signs - 12hr 05/27/22 05/27/22 05/27/22 02:30 02:45 03:00 Temperature Pulse Rate 105 H 120 H 120 H Respiratory 16 21 22 Rate Blood Pressure 121/69 122/73 124/67 O2 Sat by Pulse 95 93 95 Oximetry 05/27/22 05/27/22 05/27/22 03:15 03:23 03:30 Temperature Pulse Rate 107 H 102 H 102 H Respiratory 21 15 Rate Blood Pressure 123/66 120/64 O2 Sat by Pulse 94 95 Oximetry 05/27/22 05/27/22 05/27/22 03:44 03:46 04:00 Temperature 100 F H Pulse Rate 114 H 105 H Respiratory 15 15 Rate Blood Pressure 124/67 115/64 O2 Sat by Pulse 93 95 Oximetry 05/27/22 05/27/22 05/27/22 04:16 04:30 04:46 Temperature Pulse Rate 104 H 104 H 104 H Respiratory 16 22 17 Rate Blood Pressure 115/64 122/70 122/70 O2 Sat by Pulse 94 94 95 Oximetry 05/27/22 05/27/22 05/27/22 05:00 05:15 05:30 Temperature Pulse Rate 106 H 117 H 104 H Respiratory 17 23 17 Rate Blood Pressure 117/72 117/72 125/66 O2 Sat by Pulse 95 93 94 Oximetry 05/27/22 05/27/22 05/27/22 05:46 06:00 06:30 Temperature Pulse Rate 115 H 106 H 112 H Respiratory 19 17 22 Rate Blood Pressure 117/72 115/71 128/70 O2 Sat by Pulse 94 94 94 Oximetry 05/27/22 05/27/22 05/27/22 07:00 07:30 08:00 Temperature 98.8 F Pulse Rate 106 H 109 H 111 H Respiratory 18 17 16 Rate Blood Pressure 124/70 127/73 122/69 O2 Sat by Pulse 93 94 94 Oximetry 05/27/22 05/27/22 05/27/22 08:30 09:00 09:30 Temperature Pulse Rate 109 H 115 H 108 H Respiratory 15 28 H 15 Rate Blood Pressure 123/67 123/65 120/70 O2 Sat by Pulse 95 92 93 Oximetry 05/27/22 05/27/22 05/27/22 10:00 10:30 11:00 Temperature Pulse Rate 105 H 106 H 119 H Respiratory 16 16 21 Rate Blood Pressure 122/68 125/77 137/71 O2 Sat by Pulse 92 92 94 Oximetry 05/27/22 05/27/22 05/27/22 11:30 12:00 12:30 Temperature 98.7 F Pulse Rate 102 H 100 H 102 H Respiratory 17 19 16 Rate Blood Pressure 124/77 127/75 135/84 O2 Sat by Pulse 95 95 96 Oximetry 05/27/22 13:00 Temperature Pulse Rate 101 H Respiratory 19 Rate Blood Pressure 126/74 O2 Sat by Pulse 95 Oximetry - General physical appearance Narrative Exam: Gen.: Awake, alert, oriented x3. NAD ENT: Trachea midline. No lymphadenopathy. No scleral icterus or conjunctival pallor CV: S1, S2 present Respiratory: No audible wheezes. Splinted breathing Abdomen: Soft, non distended, mild TTP near incisions. Incisions c/d/i. L sided DELMY drain serosang Extremities: No clubbing, cyanosis, edema - Labs 05/27/22 04:06 05/27/22 04:06 Diabetes panel 05/26/22 05/27/22 Range/Units 13:38 04:06 Sodium 138 137 (137-145) mmol/L Potassium 5.2 H D (3.6-5.0) mmol/L Chloride 99.0 (98-107) mmol/L Carbon Dioxide 22 23 (22-30) mmol/L BUN 20 H 16 (7-17) mg/dL Creatinine 0.8 0.7 (0.6-1.2) mg/dL Glucose 76 117 H (65-100) mg/dL Calcium 9.0 7.6 L D (8.4-10.2) mg/dL AST 17 12 (5-40) units/L ALT 17 12 (7-56) units/L Alkaline Phosphatase 356 H 336 H (35-129) units/L Total Protein 6.4 5.3 L (6.3-8.2) g/dL Albumin 3.0 L 2.5 L (3.9-5) g/dL Calcium panel 05/26/22 05/27/22 Range/Units 13:38 04:06 Calcium 9.0 7.6 L D (8.4-10.2) mg/dL Albumin 3.0 L 2.5 L (3.9-5) g/dL Pituitary panel 05/26/22 05/27/22 Range/Units 13:38 04:06 Sodium 138 137 (137-145) mmol/L Potassium 5.2 H D (3.6-5.0) mmol/L Chloride 99.0 (98-107) mmol/L Carbon Dioxide 22 23 (22-30) mmol/L BUN 20 H 16 (7-17) mg/dL Creatinine 0.8 0.7 (0.6-1.2) mg/dL Glucose 76 117 H (65-100) mg/dL Calcium 9.0 7.6 L D (8.4-10.2) mg/dL Adrenal panel 05/26/22 05/27/22 Range/Units 13:38 04:06 Sodium 138 137 (137-145) mmol/L Potassium 5.2 H D (3.6-5.0) mmol/L Chloride 99.0 (98-107) mmol/L Carbon Dioxide 22 23 (22-30) mmol/L BUN 20 H 16 (7-17) mg/dL Creatinine 0.8 0.7 (0.6-1.2) mg/dL Glucose 76 117 H (65-100) mg/dL Calcium 9.0 7.6 L D (8.4-10.2) mg/dL Total Bilirubin 0.80 0.70 (0.1-1.2) mg/dL AST 17 12 (5-40) units/L ALT 17 12 (7-56) units/L Alkaline Phosphatase 356 H 336 H (35-129) units/L Total Protein 6.4 5.3 L (6.3-8.2) g/dL Albumin 3.0 L 2.5 L (3.9-5) g/dL
[2022-05-27] MEDS: KETOROLAC 30 MG/1 ML INJ IV SCH ×2 (16:21→22:17)
[2022-05-27] MEDS: D5W/0.45% NACL 1,000 ML IV SCH (16:21)
[2022-05-27] MEDS: LORazepam 2 MG/ML VIAL IV PRN (22:13)
[2022-05-27] MEDS ORDERED: VANCOMYCIN 1,500 MG in SODIUM CHLORIDE 0.9% 500 ML 500 ML IV SCH (23:00)
[2022-05-28] MEDS: metroNIDAZOLE/NS 500 MG/100 ML 500 MG/100 ML BAG IV SCH ×3 (02:41→18:22)
[2022-05-28] MEDS: D5W/0.45% NACL 1,000 ML IV SCH ×2 (02:43→14:52)
[2022-05-28] MEDS: CEFEPIME/NS 2 GM/100 ML 2 GM/100 ML BAG IV SCH ×3 (02:47→18:22)
[2022-05-28] MEDS: HYDROmorphone 0.5 MG/0.5 ML INJ IV PRN ×3 (04:30→17:29)
[2022-05-28] MEDS: KETOROLAC 30 MG/1 ML INJ IV SCH ×3 (06:12→22:50)
--- NOTE | 2022-05-28 08:56 | Progress Note ---
Assessment and Plan Assessment and plan: History of present illness: 31 YO Female with no past medical history presents to ED for evaluation. Patient reports "my stomach hurts". Patient states that she has experienced pain in her abdomen over the past 3 days with worsening symptoms over the past 2 days since discharge from the hospital. Patient states that her pain is 7/10, constant, stabbing, worsened with movement, relieved somewhat with no movement. Patient transported to [facility] via private vehicle for further care and evaluation of the aforementioned symptoms. [facility] All lab and imaging studies reviewed. The patient was found to have clinical symptoms consistent with acute peritonitis complicated by sepsis. Patient with CT scan of the abdomen and pelvis and was found to have a perforated viscus with suspected intra-abdominal abscess. Patient admitted to [facility] and initiated on sepsis protocol. Surgery team consulted in ED. Patient taken urgently to the operating room for surgical intervention. Patient denies fever, chills, chest pain, palpitation, adductive cough, skin rash, recent contact, known exposure to COVID-19. No prior admission for review. No medication listed at time of admission for reconciliation. Advanced care plann ing conducted in ED. Assessment: #Blood loss anemia - Hgb: 6.0 on 05/28, likely losses from surgery. Currently all VSS. No signs and symptoms of GIB on history. - 1 unit prbc ordered #Sepsis POA - Febrile to 100.4 with a white count 29.7 #Intra-abdominal abscess s/p diagnostic laparoscopy, lysis of adhesions and pericolonic abscess drainage on 05/26. - 05/26 CTAP: Fluid air collection in right pericolonic gutter posterior to ascending colon suggestive of abscess. Adjacent appendix not distended findings consistent with ruptured appendix with secondary abscess formation. #Peritonitis #Likely perforated appendicitis #History of emergent section #Advance care planning Disease education conducted, care plan discussed, diagnoses discussed, prognosis discussed, patient is full code, patient acknowledges understanding and agree with care plan, +30 minutes. Plan: - 1unit prbc ordered, recheck Hgb in AM. - trend wbc, fever curve - bcx, surgical cx - ID consulted, recs noted - Gen surgery following, recs noted - DELMY drain in place - continued OOB, ambulate. - ICS - d/c maintainence IVF - pain control with IV toradol. - IV abx: cefepime, flagyl IV OK to downgrade to med/surg. The high probability of a clinically significant, sudden or life threatening deterioration of the [multi] system(s) required my full and direct attention, intervention and personal management. The aggregate critical care time was [60] minutes. This time is in addition to time spent performing reported procedures but includes the following: [x] Data Review and interpretation [x] Patient assessment and monitoring of vital signs [x] Documentation [x] Medication orders and management History Interval history: No acute complaints today. Pain improved. Patient able to ambulate OOB. Breathing well, using IS. Feels some fatigue, no complaint of dizziness, chest pain, shortness of breath. Hospitalist Physical - Physical exam Narrative exam: General appearance: Present: severe distress - EENT Eyes: Present: PERRL ENT: hearing intact, clear oral mucosa - Neck Neck: Present: supple, normal ROM - Respiratory Respiratory effort: normal Respiratory: bilateral: CTA - Cardiovascular Heart Sounds: Present: S1 & S2. Absent: rub, click - Extremities Extremities: pulses symmetrical, No edema Peripheral Pulses: within normal limits - Abdominal General gastrointestinal: Present: soft, tender, non-distended, hypoactive bowel sounds Female genitourinary: Present: normal - Integumentary Integumentary: Present: clear, warm, dry incision wound clean, DELMY drain in place. - Musculoskeletal Musculoskeletal: gait normal, strength equal bilaterally - Psychiatric Psychiatric: appropriate mood/affect, intact judgment & insight - Neurologic Neurologic: CNII-XII intact, moves all extremities - Constitutional Vitals: Temp Pulse Resp BP Pulse Ox 97.9 F 103 H 16 132/81 99 05/28/22 08:00 05/28/22 08:00 05/28/22 08:00 05/28/22 08:00 05/28/22 08:52 General appearance: Present: severe distress HEART Score - HEART Score Troponin: Troponin T < 0.010 ng/mL (0.00-0.029) 05/27/22 04:06 Results - Labs CBC & Chem 7: 05/28/22 09:24 05/28/22 09:24 Labs: Laboratory Last Values WBC 29.7 K/mm3 (4.5-11.0) H 05/27/22 04:06 RBC 3.34 M/mm3 (3.65-5.03) L 05/27/22 04:06 Hgb 7.0 gm/dl (10.1-14.3) L 05/27/22 04:06 Hct 22.6 % (30.3-42.9) L 05/27/22 04:06 MCV 68 fl (79-97) L 05/27/22 04:06 MCH 21 pg (28-32) L 05/27/22 04:06 MCHC 31 % (30-34) 05/27/22 04:06 RDW 17.8 % (13.2-15.2) H 05/27/22 04:06 Plt Count 473 K/mm3 (140-440) H 05/27/22 04:06 Add Manual Diff Complete 05/27/22 04:06 Total Counted 100 05/27/22 04:06 Seg Neutrophils % Roofer [place] 05/27/22 04:06 Seg Neuts % (Manual) 94.0 % (40.0-70.0) H 05/27/22 04:06 Band Neutrophils % 2.0 % 05/27/22 04:06 Lymphocytes % (Manual) 3.0 % (13.4-35.0) L 05/27/22 04:06 Reactive Lymphs % (Man) 0 % 05/27/22 04:06 Monocytes % (Manual) 1.0 % (0.0-7.3) 05/27/22 04:06 Eosinophils % (Manual) 0 % (0.0-4.3) 05/27/22 04:06 Basophils % (Manual) 0 % (0.0-1.8) 05/27/22 04:06 Metamyelocytes % 0 % 05/27/22 04:06 Myelocytes % 0 % 05/27/22 04:06 Promyelocytes % 0 % 05/27/22 04:06 Blast Cells % 0 % 05/27/22 04:06 Nucleated RBC % 1.0 % (0.0-0.9) H 05/27/22 04:06 Seg Neutrophils # Man 27.9 K/mm3 (1.8-7.7) H 05/27/22 04:06 Band Neutrophils # 0.6 K/mm3 05/27/22 04:06 Lymphocytes # (Manual) 0.9 K/mm3 (1.2-5.4) L 05/27/22 04:06 Abs React Lymphs (Man) 0.0 K/mm3 05/27/22 04:06 Monocytes # (Manual) 0.3 K/mm3 (0.0-0.8) 05/27/22 04:06 Eosinophils # (Manual) 0.0 K/mm3 (0.0-0.4) 05/27/22 04:06 Basophils # (Manual) 0.0 K/mm3 (0.0-0.1) 05/27/22 04:06 Metamyelocytes # 0.0 K/mm3 05/27/22 04:06 Myelocytes # 0.0 K/mm3 05/27/22 04:06 Promyelocytes # 0.0 K/mm3 05/27/22 04:06 Blast Cells # 0.0 K/mm3 05/27/22 04:06 WBC Morphology Not Reportable 05/27/22 04:06 Hypersegmented Neuts Not Reportable 05/27/22 04:06 Hyposegmented Neuts Not Reportable 05/27/22 04:06 Hypogranular Neuts Not Reportable 05/27/22 04:06 Smudge Cells Not Reportable 05/27/22 04:06 Toxic Granulation Not Reportable 05/27/22 04:06 Toxic Vacuolation Not Reportable 05/27/22 04:06 Dohle Bodies Not Reportable 05/27/22 04:06 Pelger-Huet Anomaly Not Reportable 05/27/22 04:06 Mary Rods Not Reportable 05/27/22 04:06 Platelet Estimate Consistent w auto 05/27/22 04:06 Clumped Platelets Not Reportable 05/27/22 04:06 Plt Clumps, EDTA Not Reportable 05/27/22 04:06 Large Platelets Not Reportable 05/27/22 04:06 Giant Platelets Not Reportable 05/27/22 04:06 Platelet Satelliting Not Reportable 05/27/22 04:06 Plt Morphology Comment Not Reportable 05/27/22 04:06 RBC Morphology Not Reportable 05/27/22 04:06 Dimorphic RBCs Not Reportable 05/27/22 04:06 Polychromasia Not Reportable 05/27/22 04:06 Hypochromasia 2+ 05/27/22 04:06 Poikilocytosis Not Reportable 05/27/22 04:06 Anisocytosis Not Reportable 05/27/22 04:06 Microcytosis 1+ 05/27/22 04:06 Macrocytosis Not Reportable 05/27/22 04:06 Spherocytes Not Reportable 05/27/22 04:06 Pappenheimer Bodies Not Reportable 05/27/22 04:06 Sickle Cells Not Reportable 05/27/22 04:06 Target Cells Not Reportable 05/27/22 04:06 Tear Drop Cells Not Reportable 05/27/22 04:06 Ovalocytes Not Reportable 05/27/22 04:06 Helmet Cells Not Reportable 05/27/22 04:06 [place] Bodies Not Reportable 05/27/22 04:06 [place] Rings Not Reportable 05/27/22 04:06 Manning Cells Not Reportable 05/27/22 04:06 Bite Cells Not Reportable 05/27/22 04:06 Crenated Cell Not Reportable 05/27/22 04:06 Elliptocytes Not Reportable 05/27/22 04:06 Acanthocytes (Spur) Not Reportable 05/27/22 04:06 Rouleaux Not Reportable 05/27/22 04:06 Hemoglobin C Crystals Not Reportable 05/27/22 04:06 Schistocytes Not Reportable 05/27/22 04:06 Malaria parasites Not Reportable 05/27/22 04:06 Norman Bodies Not Reportable 05/27/22 04:06 Hem Pathologist Commnt No 05/27/22 04:06 PT 13.9 Sec. (12.2-14.9) 05/26/22 17:31 INR 0.97 (0.87-1.13) 05/26/22 17:31 APTT 26.4 Sec. (24.2-36.6) 05/26/22 17:31 Sodium 137 mmol/L (137-145) 05/27/22 04:06 Potassium 5.2 mmol/L (3.6-5.0) H D 05/26/22 13:38 Chloride 99.0 mmol/L (98-107) 05/26/22 13:38 Carbon Dioxide 23 mmol/L (22-30) 05/27/22 04:06 Anion Gap 22 mmol/L 05/26/22 13:38 BUN 16 mg/dL (7-17) 05/27/22 04:06 Creatinine 0.7 mg/dL (0.6-1.2) 05/27/22 04:06 Estimated GFR > 60 ml/min 05/27/22 04:06 BUN/Creatinine Ratio 23 % 05/27/22 04:06 Glucose 117 mg/dL (65-100) H 05/27/22 04:06 Lactic Acid 1.30 mmol/L (0.7-2.0) 05/27/22 04:06 Calcium 7.6 mg/dL (8.4-10.2) L D 05/27/22 04:06 Magnesium 1.60 mg/dL (1.7-2.3) L 05/26/22 13:38 Total Bilirubin 0.70 mg/dL (0.1-1.2) 05/27/22 04:06 AST 12 units/L (5-40) 05/27/22 04:06 ALT 12 units/L (7-56) 05/27/22 04:06 Alkaline Phosphatase 336 units/L (35-129) H 05/27/22 04:06 Troponin T < 0.010 ng/mL (0.00-0.029) 05/27/22 04:06 NT-Pro-B Natriuret Pep 1043 pg/mL (0-450) H 05/26/22 13:38 Total Protein 5.3 g/dL (6.3-8.2) L 05/27/22 04:06 Albumin 2.5 g/dL (3.9-5) L 05/27/22 04:06 Albumin/Globulin Ratio 0.9 % 05/27/22 04:06 Urine Color Red (Yellow) 05/26/22 13:57 Urine Turbidity Hazy (Clear) 05/26/22 13:57 Specific [place] (Man) 1.015 (1.003-1.030) 05/26/22 13:57 Ur Protein (Man) 2+ mg/dL (Negative) 05/26/22 13:57 Ur Ketones (Man) 5mg/dl (Negative) 05/26/22 13:57 Ur Nitrite (Man) Negative (Negative) 05/26/22 13:57 Ur Reducing Substances Not Reportable 05/26/22 13:57 Urine Bilirubin (Man) Negative (Negative) 05/26/22 13:57 Urine Ictotest Not Reportable 05/26/22 13:57 Leukocyte Esterase (Man) Trace (Negative) 05/26/22 13:57 Urine WBC (Auto) 57.0 /HPF (0.0-6.0) H 05/26/22 13:57 Urine RBC (Auto) > 182.0 /HPF (0.0-6.0) 05/26/22 13:57 U Epithel Cells (Auto) 3.0 /HPF (0-13.0) 05/26/22 13:57 Urine Bacteria (Auto) 1+ /HPF (Negative) 05/26/22 13:57 Urine RBC (Manual) 3+ (Negative) 05/26/22 13:57 Urine Mucus Few /HPF 05/26/22 13:57 Blood Type O NEGATIVE 05/27/22 04:06 Antibody Screen Positive 05/27/22 04:06 Antibody Identification Anti-D (Passively Aquired) 05/27/22 04:06 Microbiology: Microbiology 05/26/22 Unknown Drainage Surgical Culture - Preliminary 05/26/22 13:38 Peripheral/Venous Blood Culture - Preliminary NO GROWTH AFTER 24 HOURS 05/26/22 13:38 Peripheral/Venous Blood Culture - Preliminary NO GROWTH AFTER 24 HOURS Maldonado/IV: Voiding Method Toilet Active Medications - Current Medications Current Medications: Generic Name Dose Route Start Last Admin Trade Name Freq PRN Reason Stop Dose Admin Acetaminophen 650 mg 05/26/22 18:19 Acetaminophen 325 Mg Tab PO Q6H PRN Pain, Mild (1-3) Albuterol 2.5 mg 05/26/22 18:06 Albuterol 2.5 Mg/3 Ml Nebu IH Q3HRT PRN Shortness Of Breath Hydromorphone HCl 0.25 mg 05/26/22 18:19 Hydromorphone 0.5 Mg/0.5 Ml Inj IV Q4H PRN Pain, Moderate (4-6) Hydromorphone HCl 0.5 mg 05/26/22 20:24 05/28/22 04:30 Hydromorphone 0.5 Mg/0.5 Ml Inj IV 0.5 mg Q4H PRN Administration Pain , Severe (7-10) Cefepime HCl 2 gm in 100 mls @ 200 mls/hr 05/26/22 19:00 05/28/22 02:47 Cefepime/Ns 2 Gm/100 Ml IV 200 mls/hr Q8H KOMAL Administration Protocol Metronidazole 500 mg in 100 mls @ 100 mls/hr 05/27/22 10:00 05/28/22 02:41 Flagyl 500 Mg/100 Ml IV 100 mls/hr Q8H KOMAL Administration Protocol Dextrose/Sodium Chloride 1,000 mls @ 100 mls/hr 05/27/22 15:00 05/28/22 02:43 D5/0.45ns IV 100 mls/hr DIRECT KOMAL Administration Ketorolac Tromethamine 30 mg 05/27/22 15:00 05/28/22 06:12 Ketorolac 30 Mg/1 Ml Inj IV 06/01/22 14:59 30 mg Q8H KOMAL Administration Lorazepam 1 mg 05/27/22 10:00 05/27/22 22:13 Lorazepam 2 Mg/Ml Vial IV 1 mg Q4H PRN Administration Anxiety Ondansetron HCl 4 mg 05/26/22 20:24 Ondansetron 4 Mg/2 Ml Inj IV Q8H PRN Nausea And Vomiting Oxycodone/Acetaminophen 1 tab 05/26/22 18:06 Oxycodone /Acetaminophen 5-325mg Tab PO Q6H PRN Pain, Moderate (4-6) Sodium Chloride 10 ml 05/26/22 22:00 05/27/22 22:17 Sodium Chloride 0.9% 10 Ml Flush Syringe IV 10 ml BID KOMAL Administration Sodium Chloride 10 ml 05/26/22 18:06 Sodium Chloride 0.9% 10 Ml Flush Syringe IV PRN PRN LINE FLUSH
[2022-05-28] MEDS: DOCUSATE SODIUM 100 MG CAP PO SCH ×2 (09:58→22:00)
[2022-05-28 10:04] LABS: Mean Corpuscular HGB Conc 31 % (30-34); Platelet Count 439 K/mm3 (140-440); Red Blood Count 2.78 M/mm3 (3.65-5.03)
[2022-05-28 10:20] LABS: Alanine Aminotransferase 9 units/L (7-56); Albumin 2.1 g/dL (3.9-5); Blood Urea Nitrogen 19 mg/dL (7-17); Calcium 7.8 mg/dL (8.4-10.2); Hemolysis Index 0
[2022-05-28 10:35] LABS: Hematocrit 19.3 % (30.3-42.9); Mean Corpuscular Volume 70 fl (79-97)
[2022-05-28 10:37] LABS: BUN/Creatinine Ratio 27
[2022-05-28] MEDS ORDERED: SODIUM CHLORIDE 0.9% 500 ML 500 ML IV SCH (10:45)
[2022-05-28 11:04] LABS: Eosinophils % (Auto) 0.2 % (0.0-4.3); Monocytes # (Auto) 1.1 K/mm3 (0.0-0.8); Monocytes % (Auto) 4.9 % (0.0-7.3)
--- NOTE | 2022-05-28 11:16 | Progress Note ---
Assessment and Plan Cultures: Blood culture no growth so far Surgical drainage culture pending A/P: 31-year-old female no past medical history now with: #Acute sepsis: Present with fevers, leukocytosis. Secondary to intra-abdominal abscess with perforated viscus #Intra-abdominal abscess: Status post intraoperative drainage, drain in place. Awaiting cultures. Recs: -Continue cefepime, metronidazole -Follow up blood, surgical cultures Thank you for the consult, we will continue to follow. Shanice Edge MD [facility] O: [phone] F: [phone] Subjective Date of service: 05/28/22 Interval history: Afebrile, white count improving at 23.1. Cultures remain negative. Objective - Exam Narrative Exam: Physical Exam: Constitutional: Alert, cooperative. No acute distress Head, Ears, Nose: Normocephalic, atraumatic. External ears, nose normal Eyes: Conjunctivae/corneas clear. No icterus. No ptosis. Neck: Supple, no meningeal signs Oral: dentition fair, no thrush Cardiovascular: S1, S2 normal. Respiratory: Good air entry, clear to auscultation bilaterally GI: Soft, nontender. Surgical dressing in place. Drain in place. Musculoskeletal: No pedal edema, no cyanosis. Skin: No rash or abscess Hem/Lymphatic: No palpable cervical or supraclavicular nodes. No lymphangitis Psych: Mood ok. Affect normal Neurological: Awake, alert, oriented. No gross abnormality - Constitutional Vitals: Vital Signs Temp Pulse Resp BP Pulse Ox 97.9 F 107 H 20 134/90 98 05/28/22 08:00 05/28/22 10:00 05/28/22 10:00 05/28/22 10:00 05/28/22 10:00 Temperature -Last 24 Hours Temperature 97.9 F Temperature 98.6 F Temperature 98.2 F Temperature 98.6 F Temperature 98.7 F - Labs CBC & Chem 7: 05/28/22 09:24 05/28/22 09:24 Labs: Abnormal lab results 05/27/22 05/28/22 05/28/22 Range/Units 04:06 09:24 09:24 WBC 23.1 H (4.5-11.0) K/mm3 RBC 2.78 L (3.65-5.03) M/mm3 Hgb 6.0 L (10.1-14.3) gm/dl Hct 19.3 L* (30.3-42.9) % MCV 70 L (79-97) fl MCH 22 L (28-32) pg RDW 18.0 H (13.2-15.2) % Dawson # (Auto) 1.1 H (0.0-0.8) K/mm3 Seg Neutrophils # 20.8 H (1.8-7.7) K/mm3 Sodium 136 L (137-145) mmol/L BUN 19 H (7-17) mg/dL Calcium 7.8 L (8.4-10.2) mg/dL Alkaline Phosphatase 239 H (35-129) units/L Total Protein 4.7 L (6.3-8.2) g/dL Albumin 2.1 L (3.9-5) g/dL Crossmatch See Detail
--- NOTE | 2022-05-28 11:19 | Progress Note ---
Assessment and Plan 31 yo F s/p dx lap, NATY, drainage of pericolonic RUQ abscess POD 2 - 1. peritonitis, intraabdominal abscess - likely perforated appendicitis 2. sepsis 2/2 #1 3. hx csection 05/21/22 Patient looks much better today. White count slowly trending down. Intra-abdominal cultures -negative thus far Plan: 1. Advance diet as tolerated to soft diet 2. dc IVF if florencia diet this evening 3. IV abx - ID on board 4. prn pain control 5. DVT ppx 6. DELMY drain care. Strict I/Os. Likely will remove DELMY drain tomorrow as output has significantly decreased and remained serosanguineous. 7. OOB/ambulate 8. IS/pulm toilet 9. CBC, BMP in am 10. Hemoglobin trending down however likely a combination of chronic anemia and hemodilution. HD stable. Patient scheduled to receive 1 unit of PRBC per hospitalist orders. 11. May downgrade to med/surge floor today If patient continues to improve, DC planning in 48 hours Thank you for this consultation. Please call with any questions or concerns. Subjective Date of service: 05/28/22 Narrative: Patient seen and examined. Afebrile. Tolerating clear liquid diet. No nausea or vomiting. States she feels much better today. She is using the incentive spirometer. She has not been out of bed yet. Objective Vital Signs - 12hr 05/27/22 05/28/22 05/28/22 23:30 00:00 00:15 Temperature Pulse Rate 95 H 99 H 98 H Pulse Rate [ From Monitor] Respiratory 13 11 L Rate Blood Pressure 127/76 124/71 O2 Sat by Pulse 97 Oximetry 05/28/22 05/28/22 05/28/22 00:30 01:00 02:00 Temperature Pulse Rate 98 H 95 H 98 H Pulse Rate [ From Monitor] Respiratory 13 12 14 Rate Blood Pressure 127/72 125/74 130/74 O2 Sat by Pulse 96 97 97 Oximetry 05/28/22 05/28/22 05/28/22 03:00 03:30 04:00 Temperature 98.6 F Pulse Rate 98 H 99 H 108 H Pulse Rate [ 108 H From Monitor] Respiratory 14 17 Rate Blood Pressure 133/79 133/79 O2 Sat by Pulse 96 97 Oximetry 05/28/22 05/28/22 05/28/22 05:00 06:00 06:12 Temperature Pulse Rate 99 H 99 H Pulse Rate [ From Monitor] Respiratory 13 14 12 Rate Blood Pressure 121/66 132/82 O2 Sat by Pulse 97 97 Oximetry 05/28/22 05/28/22 05/28/22 06:42 07:00 08:00 Temperature 97.9 F Pulse Rate 110 H 100 H Pulse Rate [ 103 H From Monitor] Respiratory 16 19 13 Rate Blood Pressure 138/83 132/81 O2 Sat by Pulse 98 97 Oximetry 05/28/22 05/28/22 05/28/22 08:52 09:00 10:00 Temperature Pulse Rate 98 H 107 H Pulse Rate [ From Monitor] Respiratory 13 20 Rate Blood Pressure 141/85 134/90 O2 Sat by Pulse 99 99 98 Oximetry - General physical appearance Narrative Exam: Gen.: Awake, alert, oriented x3. NAD ENT: Trachea midline. No lymphadenopathy. No scleral icterus or conjunctival pallor CV: S1, S2 present Respiratory: No audible wheezes. Abdomen: Soft, non distended, mild TTP near incisions. Incisions c/d/i. L sided DELMY drain serosang -dressing changed. Extremities: No clubbing, cyanosis, edema - Labs 05/28/22 09:24 05/28/22 09:24 Diabetes panel 05/28/22 Range/Units 09:24 Sodium 136 L (137-145) mmol/L Potassium 3.8 (3.6-5.0) mmol/L Chloride 101.7 (98-107) mmol/L Carbon Dioxide 24 (22-30) mmol/L BUN 19 H (7-17) mg/dL Creatinine 0.7 (0.6-1.2) mg/dL Glucose 94 (65-100) mg/dL Calcium 7.8 L (8.4-10.2) mg/dL AST 10 (5-40) units/L ALT 9 (7-56) units/L Alkaline Phosphatase 239 H (35-129) units/L Total Protein 4.7 L (6.3-8.2) g/dL Albumin 2.1 L (3.9-5) g/dL Calcium panel 05/28/22 Range/Units 09:24 Calcium 7.8 L (8.4-10.2) mg/dL Albumin 2.1 L (3.9-5) g/dL Pituitary panel 05/28/22 Range/Units 09:24 Sodium 136 L (137-145) mmol/L Potassium 3.8 (3.6-5.0) mmol/L Chloride 101.7 (98-107) mmol/L Carbon Dioxide 24 (22-30) mmol/L BUN 19 H (7-17) mg/dL Creatinine 0.7 (0.6-1.2) mg/dL Glucose 94 (65-100) mg/dL Calcium 7.8 L (8.4-10.2) mg/dL Adrenal panel 05/28/22 Range/Units 09:24 Sodium 136 L (137-145) mmol/L Potassium 3.8 (3.6-5.0) mmol/L Chloride 101.7 (98-107) mmol/L Carbon Dioxide 24 (22-30) mmol/L BUN 19 H (7-17) mg/dL Creatinine 0.7 (0.6-1.2) mg/dL Glucose 94 (65-100) mg/dL Calcium 7.8 L (8.4-10.2) mg/dL Total Bilirubin 0.30 (0.1-1.2) mg/dL AST 10 (5-40) units/L ALT 9 (7-56) units/L Alkaline Phosphatase 239 H (35-129) units/L Total Protein 4.7 L (6.3-8.2) g/dL Albumin 2.1 L (3.9-5) g/dL
[2022-05-28] MEDS ORDERED: POLYETHYLENE GLYCOL 3350 17 GM POWDER PO PRN (11:20)
--- NOTE | 2022-05-28 11:31 | Operative Report ---
Operative Report Operative Report: Pre-op diagnosis: peritonitis, intraabdominal abscess Post-op diagnosis: same Findings: 1. Inflammatory adhesions in the right mid and upper abdomen from omentum and right colon to anterior abdominal wall, hepatic flexure to liver. 2. Moderate sized abscess cavity in the right paracolic gutter containing hematoma. 3. No obvious colon perforation 4. Appendix not identified Procedure: dx laparoscopy, lysis of adhesions, evacuation and debridement of intraabdominal abscess, drain placement Anesthesia: NIKKIA, local Surgeon: SHALINI PICKETT Lead Android Developer: JAYLA LEVINE Estimated blood loss: minimal Pathology: list (intraabdominal abscess culture) Specimen disposition: to lab Condition: stable Disposition: PACU HPI and indication: Patient is a 31-year-old female with a history of emergent 5 days prior who presented to the emergency room with several days of worsening right sided abdominal pain radiating to the chest and shoulder. Patient was found to have an elevated lactate, tachycardic, with difficulty breathing. She underwent work-up which included a CT scan of her chest abdomen and pelvis. A PE was ruled out however the CT scan of the abdomen and pelvis revealed a 7 cm abscess in the right paracolic gutter concerning for ruptured appendicitis. The patient had peritonitis on exam and it was therefore recommended that she undergo emergent diagnostic laparoscopy, possible exploratory laparotomy. All risks, benefits, alternatives to surgery were discussed and questions answered. Consent obtained. Procedure in detail: The patient was identified in the hospital bed and brought to the operating room. She was placed on the operating room table in supine position. After anesthesia was induced a Maldonado catheter was sterilely placed by the circulating nurse. Both arms were tucked and all bony prominences padded appropriately. The abdomen was prepped and draped in usual sterile fashion a timeout performed. Local anesthetic was infiltrated into the skin at the in tended incision sites. A elizabeth incision was made in the left upper quadrant at Ni's point through which a Veress needle was inserted. The Veress needle position was confirmed using the saline drop test and the abdomen insufflated to 15 mmHg without incident. A supraumbilical incision was then made through which a 5 mm Optiview trocar was placed. The patient had a tiny umbilical hernia at the site and the trocar was placed through the hernia. The abdomen was inspected and there was no underlying injury to any of the abdominal structures. The Veress needle was identified and removed. Upon examination of the abdomen a significant amount of inflammation was seen in the right hemiabdomen with inflammatory adhesions from the omentum and right colon to the anterior abdominal wall. There was a minimal amount of inflammatory fluid seen. An additional 5 mm left lower quadrant and left upper quadrant trocar was placed under direct visualization. The patient was placed in Trendelenburg and tilted to the left. The inflammatory adhesions were lysed using blunt dissection. Adhesions from the bowel to the right adnexa were also taken down bluntly. The small intestine was traced to the terminal ileum. The small bowel was unremarkable. The cecum and right colon was examined and was holding air. Inflammatory adhesions from the transverse colon to the liver were also taken down using blunt dissection. The colon was rotated medially by taking down inflammatory adhesions to the sidewall and an abscess cavity was entered at the hepatic flexure. The abscess cavity was bluntly dissected with a suction mesh cutter and old blood was evacuated. Cultures were obtained. No colonic injury or gross purulent fluid was seen. Abscess cavity was debrided using the suction mesh cutter and evacuated. The area was irrigated until the irrigant returned clear. Despite mobilization of the cecum and right colon, no remnant of the appendix was identified. Therefore it was decided to leave a drain and conclude the procedure. A 19 [place] Sam drain was placed through the left lower quadrant 5 mm trocar and positioned in the right paracolic gutter. This was sutured to the skin using a 2-0 nylon drain stitch. The ports were then removed and the abdomen desufflated. All skin incisions were once again infiltrated with local anesthetic and the skin approximated using 4-0 Monocryl subcuticular stitch and skin glue. A sponge was applied around the drain and secured with a Tegaderm. At the end of the case all sponge, instrument, sharp counts were correct x2. The Maldonado catheter was removed and the patient was awoken from anesthesia. She was extubated and taken to PACU in stable condition.
[2022-05-28 12:34] LABS: Band Neutrophils # (Manual) 0.2 K/mm3; Basophils % (Manual) 0 % (0.0-1.8); Eosinophils % (Manual) 0 % (0.0-4.3); Total Cells Counted 100
[2022-05-28 12:36] LABS: Giant Platelets Few; Hypochromasia Few; Platelet Clumps Few; Tear Drop Cells Few
[2022-05-28 12:37] LABS: Platelet Estimate Consistent w Auto
[2022-05-28] MEDS: FAMOTIDINE 20 MG/2 ML INJ IV SCH (12:48)
[2022-05-28] MEDS: LORazepam 2 MG/ML VIAL IV PRN (19:48)
[2022-05-28] MEDS: oxyCODONE /ACETAMINOPHEN 5-325MG TAB PO PRN (22:51)
[2022-05-29] MEDS: LORazepam 2 MG/ML VIAL IV PRN (00:07)
[2022-05-29] MEDS: metroNIDAZOLE/NS 500 MG/100 ML 500 MG/100 ML BAG IV SCH ×3 (02:00→19:01)
[2022-05-29] MEDS: CEFEPIME/NS 2 GM/100 ML 2 GM/100 ML BAG IV SCH ×3 (02:48→21:36)
[2022-05-29 06:45] LABS: Hematocrit 23.9 % (30.3-42.9); Hemoglobin 7.3 gm/dl (10.1-14.3); Mean Corpuscular HGB Conc 31 % (30-34); Mean Corpuscular Volume 71 fl (79-97); Platelet Count 475 K/mm3 (140-440); Red Blood Count 3.35 M/mm3 (3.65-5.03); Red Cell Distribution Width 19.6 % (13.2-15.2)
[2022-05-29 06:49] LABS: Blood Urea Nitrogen 19 mg/dL (7-17); Hemolysis Index 1
[2022-05-29] MEDS: KETOROLAC 30 MG/1 ML INJ IV SCH ×2 (06:50→15:59)
[2022-05-29 06:51] LABS: BUN/Creatinine Ratio 32
[2022-05-29] MEDS: oxyCODONE /ACETAMINOPHEN 5-325MG TAB PO PRN ×2 (08:36→19:04)
[2022-05-29] MEDS: DOCUSATE SODIUM 100 MG CAP PO SCH ×2 (10:12→21:36)
[2022-05-29] MEDS: FAMOTIDINE 20 MG/2 ML INJ IV SCH (10:12)
--- NOTE | 2022-05-29 10:31 | XRay Report ---
CHEST 1 VIEW 05/29/2022 9:23 AM INDICATION / CLINICAL INFORMATION: post op fever. COMPARISON: 05/26/2022 FINDINGS: SUPPORT DEVICES: None. HEART / MEDIASTINUM: Normal. LUNGS / PLEURA: There is a right pleural effusion. Right lower lung opacities may be atelectatic. Lef t lung is clear. No pneumothorax. ADDITIONAL FINDINGS: No significant additional findings. IMPRESSION: 1. Right pleural effusion. Adjacent right lower lung opacities are nonspecific but may be atelectatic given the effusion and elevation of the right hemidiaphragm. Signer Name: Raymon Golden MD Signed: 05/29/2022 10:26 AM Workstation Name: [id number]
--- NOTE | 2022-05-29 10:59 | Progress Note ---
Subjective Date of service: 05/29/22 Narrative: Pt seen and examined. States she is feeling well. Pain is well controlled. She is having flatus but no BM yet. She ambulated to the toilet on her own. Febrile overnight to 101. Jairo reg diet without abd pain, n/v. Objective Vital Signs - 12hr 05/28/22 05/28/22 05/28/22 22:44 22:51 23:00 Temperature Pulse Rate 113 H 114 H Pulse Rate [ From Monitor] Respiratory 18 22 20 Rate Blood Pressure 138/90 120/64 O2 Sat by Pulse 98 98 Oximetry 05/29/22 05/29/22 05/29/22 00:00 01:00 02:00 Temperature 101.6 F H Pulse Rate 116 H 106 H 102 H Pulse Rate [ 108 H From Monitor] Respiratory 18 15 16 Rate Blood Pressure 114/67 116/69 129/79 O2 Sat by Pulse 99 97 95 Oximetry 05/29/22 05/29/22 05/29/22 03:00 04:00 05:00 Temperature Pulse Rate 103 H 99 H 98 H Pulse Rate [ 99 H From Monitor] Respiratory 16 16 19 Rate Blood Pressure 114/71 124/59 135/89 O2 Sat by Pulse 94 96 95 Oximetry 05/29/22 05/29/22 05/29/22 06:00 07:00 08:00 Temperature 98.4 F Pulse Rate 99 H 106 H Pulse Rate [ 106 H From Monitor] Respiratory 19 20 Rate Blood Pressure 138/98 122/80 O2 Sat by Pulse 97 96 98 Oximetry 05/29/22 05/29/22 05/29/22 08:01 09:00 10:00 Temperature Pulse Rate 115 H 111 H 105 H Pulse Rate [ From Monitor] Respiratory 18 20 23 Rate Blood Pressure 133/79 138/96 138/96 O2 Sat by Pulse 97 Oximetry - Labs 05/29/22 05:55 05/29/22 05:55 Diabetes panel 05/28/22 05/29/22 Range/Units 09:24 05:55 Sodium 138 (137-145) mmol/L Potassium 4.0 (3.6-5.0) mmol/L Chloride 103.7 (98-107) mmol/L Carbon Dioxide 23 (22-30) mmol/L BUN 19 H (7-17) mg/dL Creatinine 0.7 0.6 (0.6-1.2) mg/dL Glucose 76 (65-100) mg/dL Calcium 8.0 L (8.4-10.2) mg/dL Calcium panel 05/29/22 Range/Units 05:55 Calcium 8.0 L (8.4-10.2) mg/dL Pituitary panel 05/28/22 05/29/22 Range/Units 09:24 05:55 Sodium 138 (137-145) mmol/L Potassium 4.0 (3.6-5.0) mmol/L Chloride 103.7 (98-107) mmol/L Carbon Dioxide 23 (22-30) mmol/L BUN 19 H (7-17) mg/dL Creatinine 0.7 0.6 (0.6-1.2) mg/dL Glucose 76 (65-100) mg/dL Calcium 8.0 L (8.4-10.2) mg/dL Adrenal panel 05/28/22 05/29/22 Range/Units 09:24 05:55 Sodium 138 (137-145) mmol/L Potassium 4.0 (3.6-5.0) mmol/L Chloride 103.7 (98-107) mmol/L Carbon Dioxide 23 (22-30) mmol/L BUN 19 H (7-17) mg/dL Creatinine 0.7 0.6 (0.6-1.2) mg/dL Glucose 76 (65-100) mg/dL Calcium 8.0 L (8.4-10.2) mg/dL
--- NOTE | 2022-05-29 11:10 | Progress Note ---
Assessment and Plan 31 yo F s/p dx lap, NATY, drainage of pericolonic RUQ abscess POD 3- 1. peritonitis, intraabdominal abscess - likely perforated appendicitis 2. sepsis 2/2 #1 3. hx csection 05/21/22 Patient stable. Febrile o/n. WBC remains at 23.1. Intra-abdominal cultures -negative thus far CXR - right pleural effusion, atelectasis. Plan: 1. Soft diet 2. IV abx - ID on board 3. prn pain control 4. DVT ppx - SCDs 5. DELMY drain care - will continue during admission and likely remove prior to discharge. Strict I/Os. 6. OOB/ambulate. PT consulted 7. IS/pulm toilet 8. CBC, BMP in am. Hb responded appropriately to 1 unit pRBC 9. monitor for additional fevers. If continues to spike fevers, will repeat Ct A/P with oral and IV contrast. Thank you for this consultation. Please call with any questions or concerns. Subjective Date of service: 05/29/22 Narrative: Pt seen and examined. Pain well controlled. Feels well today. Febrile overnight to 101. Jairo diet without abdominal pain, n/v. Was out of bed to toilet. + Flatus. No BM Objective Vital Signs - 12hr 05/29/22 05/29/22 05/29/22 00:00 01:00 02:00 Temperature 101.6 F H Pulse Rate 116 H 106 H 102 H Pulse Rate [ 108 H From Monitor] Respiratory 18 15 16 Rate Blood Pressure 114/67 116/69 129/79 O2 Sat by Pulse 99 97 95 Oximetry 05/29/22 05/29/22 05/29/22 03:00 04:00 05:00 Temperature Pulse Rate 103 H 99 H 98 H Pulse Rate [ 99 H From Monitor] Respiratory 16 16 19 Rate Blood Pressure 114/71 124/59 135/89 O2 Sat by Pulse 94 96 95 Oximetry 05/29/22 05/29/22 05/29/22 06:00 07:00 08:00 Temperature 98.4 F Pulse Rate 99 H 106 H Pulse Rate [ 106 H From Monitor] Respiratory 19 20 Rate Blood Pressure 138/98 122/80 O2 Sat by Pulse 97 96 98 Oximetry 05/29/22 05/29/22 05/29/22 08:01 09:00 10:00 Temperature Pulse Rate 115 H 111 H 105 H Pulse Rate [ From Monitor] Respiratory 18 20 23 Rate Blood Pressure 133/79 138/96 138/96 O2 Sat by Pulse 97 Oximetry - General physical appearance Narrative Exam: Gen.: Awake, alert, oriented x3. NAD ENT: Trachea midline. No lymphadenopathy. No scleral icterus or conjunctival pallor CV: S1, S2 present Respiratory: No audible wheezes. Abdomen: Soft, non distended, NT. All incisions c/d/i. NO erythema or inflammation at csection incision. L sided DELMY drain serosang. Extremities: No clubbing, cyanosis, edema DELMY - 25cc - Labs 05/29/22 05:55 05/29/22 05:55 Diabetes panel 05/29/22 Range/Units 05:55 Sodium 138 (137-145) mmol/L Potassium 4.0 (3.6-5.0) mmol/L Chloride 103.7 (98-107) mmol/L Carbon Dioxide 23 (22-30) mmol/L BUN 19 H (7-17) mg/dL Creatinine 0.6 (0.6-1.2) mg/dL Glucose 76 (65-100) mg/dL Calcium 8.0 L (8.4-10.2) mg/dL Calcium panel 05/29/22 Range/Units 05:55 Calcium 8.0 L (8.4-10.2) mg/dL Pituitary panel 05/29/22 Range/Units 05:55 Sodium 138 (137-145) mmol/L Potassium 4.0 (3.6-5.0) mmol/L Chloride 103.7 (98-107) mmol/L Carbon Dioxide 23 (22-30) mmol/L BUN 19 H (7-17) mg/dL Creatinine 0.6 (0.6-1.2) mg/dL Glucose 76 (65-100) mg/dL Calcium 8.0 L (8.4-10.2) mg/dL Adrenal panel 05/29/22 Range/Units 05:55 Sodium 138 (137-145) mmol/L Potassium 4.0 (3.6-5.0) mmol/L Chloride 103.7 (98-107) mmol/L Carbon Dioxide 23 (22-30) mmol/L BUN 19 H (7-17) mg/dL Creatinine 0.6 (0.6-1.2) mg/dL Glucose 76 (65-100) mg/dL Calcium 8.0 L (8.4-10.2) mg/dL
--- NOTE | 2022-05-29 13:29 | Progress Note ---
Assessment and Plan Assessment and plan: History of present illness: 31 YO Female with no past medical history presents to ED for evaluation. Patient reports "my stomach hurts". Patient states that she has experienced pain in her abdomen over the past 3 days with worsening symptoms over the past 2 days since discharge from the hospital. Patient states that her pain is 7/10, constant, stabbing, worsened with movement, relieved somewhat with no movement. Patient transported to [facility] via private vehicle for further care and evaluation of the aforementioned symptoms. The patient was seen and evaluated in the [facility] department. All lab and imaging studies reviewed. The patient was found to have clinical symptoms consistent with acute peritonitis complicated by sepsis. Patient with CT scan of the abdomen and pelvis and was found to have a perforated viscus with suspected intra-abdominal abscess. Patient admitted to [facility] and initiated on sepsis protocol. Surgery team consulted in ED. Patient taken urgently to the operating room for surgical intervention. Patient denies fever, chills, chest pain, palpitation, adductive cough, skin rash, recent contact, known exposure to COVID-19. No prior admission for review. No medication listed at time of admission for reconciliation. Advanced care plann ing conducted in ED. Assessment: #Blood loss anemia - Hgb: 6.0 on 05/28, likely losses from surgery. Currently all VSS. No signs and symptoms of GIB on history. - 1 unit prbc ordered, recheck hgb: 7.3 #Sepsis POA - Febrile to 100.4 with a white count 29.7 #Intra-abdominal abscess s/p diagnostic laparoscopy, lysis of adhesions and pericolonic abscess drainage on 05/26. - 05/26 CTAP: Fluid air collection in right pericolonic gutter posterior to ascending colon suggestive of abscess. Adjacent appendix not distended findings consistent with ruptured appendix with secondary abscess formation. #Peritonitis #Likely perforated appendicitis #History of emergent section #Advance care planning Disease education conducted, care plan discussed, diagnoses discussed, prognosis discussed, patient is full code, patient acknowledges understanding and agree with care plan, +30 minutes. Plan: - 1unit prbc complete, recheck Hgb 7.3 - trend wbc, fever curve - bcx, surgical cx - ID consulted, recs noted - Gen surgery following, recs noted - DELMY drain in place, to be removed prior to dc - continued OOB, ambulate. - ICS - d/c maintainence IVF - pain control with IV toradol. - IV abx: cefepime, flagyl IV ...will follow ID recommend for OP abx. Dispo: OK to downgrade to med/surg. Possible discharge in next 48 hrs. Patient will need to remain afebrile for atleast 48hrs. Will need DELMY drain removed and OP abx recs prior to discharge. The high probability of a clinically significant, sudden or life threatening deterioration of the [multi] system(s) required my full and direct attention, intervention and personal management. The aggregate critical care time was [60] minutes. This time is in addition to time spent performing reported procedures but includes the following: [x] Data Review and interpretation [x] Patient assessment and monitoring of vital signs [x] Documentation [x] Medication orders and management History Interval history: Patient resting comfortably on bedside encounter. Appears more fatigued today. Patient was febrile overnight. Decreased drainage noted from DELMY drain. Hospitalist Physical - Physical exam Narrative exam: General appearance: Present: severe distress - EENT Eyes: Present: PERRL ENT: hearing intact, clear oral mucosa - Neck Neck: Present: supple, normal ROM - Respiratory Respiratory effort: normal Respiratory: bilateral: CTA - Cardiovascular Heart Sounds: Present: S1 & S2. Absent: rub, click - Extremities Extremities: pulses symmetrical, No edema Peripheral Pulses: within normal limits - Abdominal General gastrointestinal: Present: soft, tender, non-distended, hypoactive bowel sounds Female genitourinary: Present: normal - Integumentary Integumentary: Present: clear, warm, dry incision wound clean, DELMY drain in place. - Musculoskeletal Musculoskeletal: gait normal, strength equal bilaterally - Psychiatric Psychiatric: appropriate mood/affect, intact judgment & insight - Neurologic Neurologic: CNII-XII intact, moves all extremities - Constitutional Vitals: Temp Pulse Resp BP Pulse Ox 99.4 F 98 H 19 127/80 95 05/29/22 12:00 05/29/22 13:00 05/29/22 13:00 05/29/22 13:00 05/29/22 13:00 General appearance: Present: severe distress HEART Score - HEART Score Troponin: Troponin T < 0.010 ng/mL (0.00-0.029) 05/27/22 04:06 Results - Labs CBC & Chem 7: 05/29/22 05:55 05/29/22 05:55 Labs: Laboratory Last Values WBC 23.1 K/mm3 (4.5-11.0) H 05/29/22 05:55 RBC 3.35 M/mm3 (3.65-5.03) L 05/29/22 05:55 Hgb 7.3 gm/dl (10.1-14.3) L 05/29/22 05:55 Hct 23.9 % (30.3-42.9) L 05/29/22 05:55 MCV 71 fl (79-97) L 05/29/22 05:55 MCH 22 pg (28-32) L 05/29/22 05:55 MCHC 31 % (30-34) 05/29/22 05:55 RDW 19.6 % (13.2-15.2) H 05/29/22 05:55 Plt Count 475 K/mm3 (140-440) H 05/29/22 05:55 Johnson % (Auto) 4.9 % (0.0-7.3) 05/28/22 09:24 Eos % (Auto) 0.2 % (0.0-4.3) 05/28/22 09:24 Johnson # (Auto) 1.1 K/mm3 (0.0-0.8) H 05/28/22 09:24 Eos # (Auto) 0.0 K/mm3 (0.0-0.4) 05/28/22 09:24 Baso # (Auto) 0.0 K/mm3 (0.0-0.1) 05/28/22 09:24 Add Manual Diff Complete 05/28/22 09:24 Total Counted 100 05/28/22 09:24 Seg Neutrophils % Aquatics Specialist 05/28/22 09:24 Seg Neuts % (Manual) 90.0 % (40.0-70.0) H 05/28/22 09:24 Band Neutrophils % 1.0 % 05/28/22 09:24 Lymphocytes % (Manual) 0 % (13.4-35.0) L 05/28/22 09:24 Reactive Lymphs % (Man) 0 % 05/28/22 09:24 Monocytes % (Manual) 6.0 % (0.0-7.3) 05/28/22 09:24 Eosinophils % (Manual) 0 % (0.0-4.3) 05/28/22 09:24 Basophils % (Manual) 0 % (0.0-1.8) 05/28/22 09:24 Metamyelocytes % 3.0 % 05/28/22 09:24 Myelocytes % 0 % 05/28/22 09:24 Promyelocytes % 0 % 05/28/22 09:24 Blast Cells % 0 % 05/28/22 09:24 Nucleated RBC % Not Reportable 05/28/22 09:24 Seg Neutrophils # 20.8 K/mm3 (1.8-7.7) H 05/28/22 09:24 Seg Neutrophils # Man 20.8 K/mm3 (1.8-7.7) H 05/28/22 09:24 Band Neutrophils # 0.2 K/mm3 05/28/22 09:24 Lymphocytes # (Manual) 0.0 K/mm3 (1.2-5.4) L 05/28/22 09:24 Abs React Lymphs (Man) 0.0 K/mm3 05/28/22 09:24 Monocytes # (Manual) 1.4 K/mm3 (0.0-0.8) H 05/28/22 09:24 Eosinophils # (Manual) 0.0 K/mm3 (0.0-0.4) 05/28/22 09:24 Basophils # (Manual) 0.0 K/mm3 (0.0-0.1) 05/28/22 09:24 Metamyelocytes # 0.7 K/mm3 05/28/22 09:24 Myelocytes # 0.0 K/mm3 05/28/22 09:24 Promyelocytes # 0.0 K/mm3 05/28/22 09:24 Blast Cells # 0.0 K/mm3 05/28/22 09:24 WBC Morphology Not Reportable 05/28/22 09:24 WBC Morphology TNR 05/28/22 09:24 Hypersegmented Neuts Not Reportable 05/28/22 09:24 Hyposegmented Neuts Not Reportable 05/28/22 09:24 Hypogranular Neuts Not Reportable 05/28/22 09:24 Smudge Cells Not Reportable 05/28/22 09:24 Toxic Granulation Not Reportable 05/28/22 09:24 Toxic Vacuolation Not Reportable 05/28/22 09:24 Dohle Bodies Not Reportable 05/28/22 09:24 Pelger-Huet Anomaly Not Reportable 05/28/22 09:24 Mary Rods Not Reportable 05/28/22 09:24 Platelet Estimate Consistent w auto 05/28/22 09:24 Clumped Platelets Few 05/28/22 09:24 Plt Clumps, EDTA Not Reportable 05/28/22 09:24 Large Platelets Not Reportable 05/28/22 09:24 Giant Platelets Few 05/28/22 09:24 Platelet Satelliting Not Reportable 05/28/22 09:24 Plt Morphology Comment Not Reportable 05/28/22 09:24 RBC Morphology Not Reportable 05/28/22 09:24 Dimorphic RBCs Not Reportable 05/28/22 09:24 Polychromasia Not Reportable 05/28/22 09:24 Hypochromasia Few 05/28/22 09:24 Poikilocytosis Not Reportable 05/28/22 09:24 Anisocytosis Not Reportable 05/28/22 09:24 Microcytosis Not Reportable 05/28/22 09:24 Macrocytosis Not Reportable 05/28/22 09:24 Spherocytes Not Reportable 05/28/22 09:24 Pappenheimer Bodies Not Reportable 05/28/22 09:24 Sickle Cells Not Reportable 05/28/22 09:24 Target Cells Not Reportable 05/28/22 09:24 Tear Drop Cells Few 05/28/22 09:24 Ovalocytes Not Reportable 05/28/22 09:24 Helmet Cells Not Reportable 05/28/22 09:24 Henry-Caputa Bodies Not Reportable 05/28/22 09:24 Mckenzie Rings Not Reportable 05/28/22 09:24 [place] Cells Not Reportable 05/28/22 09:24 Bite Cells Not Reportable 05/28/22 09:24 Crenated Cell Not Reportable 05/28/22 09:24 Elliptocytes Few 05/28/22 09:24 Acanthocytes (Spur) Not Reportable 05/28/22 09:24 Rouleaux Not Reportable 05/28/22 09:24 Hemoglobin C Crystals Not Reportable 05/28/22 09:24 Schistocytes Not Reportable 05/28/22 09:24 Malaria parasites Not Reportable 05/28/22 09:24 Norman Bodies Not Reportable 05/28/22 09:24 Hem Pathologist Commnt No 05/28/22 09:24 PT 13.9 Sec. (12.2-14.9) 05/26/22 17:31 INR 0.97 (0.87-1.13) 05/26/22 17:31 APTT 26.4 Sec. (24.2-36.6) 05/26/22 17:31 Sodium 138 mmol/L (137-145) 05/29/22 05:55 Potassium 4.0 mmol/L (3.6-5.0) 05/29/22 05:55 Chloride 103.7 mmol/L (98-107) 05/29/22 05:55 Carbon Dioxide 23 mmol/L (22-30) 05/29/22 05:55 Anion Gap 15 mmol/L 05/29/22 05:55 BUN 19 mg/dL (7-17) H 05/29/22 05:55 Creatinine 0.6 mg/dL (0.6-1.2) 05/29/22 05:55 Estimated GFR > 60 ml/min 05/29/22 05:55 BUN/Creatinine Ratio 32 % 05/29/22 05:55 Glucose 76 mg/dL (65-100) 05/29/22 05:55 POC Glucose 94 mg/dL (70-105) 05/28/22 21:31 Lactic Acid 1.30 mmol/L (0.7-2.0) 05/27/22 04:06 Calcium 8.0 mg/dL (8.4-10.2) L 05/29/22 05:55 Magnesium 1.60 mg/dL (1.7-2.3) L 05/26/22 13:38 Total Bilirubin 0.30 mg/dL (0.1-1.2) 05/28/22 09:24 AST 10 units/L (5-40) 05/28/22 09:24 ALT 9 units/L (7-56) 05/28/22 09:24 Alkaline Phosphatase 239 units/L (35-129) H 05/28/22 09:24 Troponin T < 0.010 ng/mL (0.00-0.029) 05/27/22 04:06 NT-Pro-B Natriuret Pep 1043 pg/mL (0-450) H 05/26/22 13:38 Total Protein 4.7 g/dL (6.3-8.2) L 05/28/22 09:24 Albumin 2.1 g/dL (3.9-5) L 05/28/22 09:24 Albumin/Globulin Ratio 0.8 % 05/28/22 09:24 Urine Color Red (Yellow) 05/26/22 13:57 Urine Turbidity Hazy (Clear) 05/26/22 13:57 Specific [place] (Man) 1.015 (1.003-1.030) 05/26/22 13:57 Ur Protein (Man) 2+ mg/dL (Negative) 05/26/22 13:57 Ur Ketones (Man) 5mg/dl (Negative) 05/26/22 13:57 Ur Nitrite (Man) Negative (Negative) 05/26/22 13:57 Ur Reducing Substances Not Reportable 05/26/22 13:57 Urine Bilirubin (Man) Negative (Negative) 05/26/22 13:57 Urine Ictotest Not Reportable 05/26/22 13:57 Leukocyte Esterase (Man) Trace (Negative) 05/26/22 13:57 Urine WBC (Auto) 57.0 /HPF (0.0-6.0) H 05/26/22 13:57 Urine RBC (Auto) > 182.0 /HPF (0.0-6.0) 05/26/22 13:57 U Epithel Cells (Auto) 3.0 /HPF (0-13.0) 05/26/22 13:57 Urine Bacteria (Auto) 1+ /HPF (Negative) 05/26/22 13:57 Urine RBC (Manual) 3+ (Negative) 05/26/22 13:57 Urine Mucus Few /HPF 05/26/22 13:57 Blood Type O NEGATIVE 05/27/22 04:06 Antibody Screen Positive 05/27/22 04:06 Antibody Identification Anti-D (Passively Aquired) 05/27/22 04:06 Crossmatch See Detail 05/27/22 04:06 Microbiology: Microbiology 05/26/22 13:38 Peripheral/Venous Blood Culture - Preliminary NO GROWTH AFTER 48 HOURS 05/26/22 13:38 Peripheral/Venous Blood Culture - Preliminary NO GROWTH AFTER 48 HOURS Maldonado/IV: Voiding Method Toilet Active Medications - Current Medications Current Medications: Generic Name Dose Route Start Last Admin Trade Name Freq PRN Reason Stop Dose Admin Acetaminophen 650 mg 05/26/22 18:19 05/29/22 00:08 Acetaminophen 325 Mg Tab PO 650 mg Q6H PRN Administration Pain, Mild (1-3) Albuterol 2.5 mg 05/26/22 18:06 Albuterol 2.5 Mg/3 Ml Nebu IH Q3HRT PRN Shortness Of Breath Diphenhydramine HCl 50 mg 05/29/22 22:00 Diphenhydramine 50 Mg/Ml Vial IV QHS PRN insomnia Docusate Sodium 100 mg 05/28/22 10:00 05/29/22 10:12 Docusate Sodium 100 Mg Cap PO 100 mg BID KOMAL Administration Famotidine 20 mg 05/28/22 12:00 05/29/22 10:12 Famotidine 20 Mg/2 Ml Inj IV 20 mg QDAY KOMAL Administration Hydromorphone HCl 0.25 mg 05/26/22 18:19 05/28/22 17:29 Hydromorphone 0.5 Mg/0.5 Ml Inj IV 0.25 mg Q4H PRN Administration Pain , Severe (7-10) Cefepime HCl 2 gm in 100 mls @ 200 mls/hr 05/26/22 19:00 05/29/22 10:11 Cefepime/Ns 2 Gm/100 Ml IV 200 mls/hr Q8H KOMAL Administration Protocol Metronidazole 500 mg in 100 mls @ 100 mls/hr 05/27/22 10:00 05/29/22 10:11 Flagyl 500 Mg/100 Ml IV 100 mls/hr Q8H KOMAL Administration Protocol Sodium Chloride 500 mls @ 0 mls/hr 05/28/22 10:45 Nacl 0.9% 500 Ml IV ONCE KOMAL As Directed Ketorolac Tromethamine 30 mg 05/27/22 15:00 05/29/22 06:50 Ketorolac 30 Mg/1 Ml Inj IV 06/01/22 14:59 30 mg Q8H KOMAL Administration Ondansetron HCl 4 mg 05/26/22 20:24 Ondansetron 4 Mg/2 Ml Inj IV Q8H PRN Nausea And Vomiting Oxycodone/Acetaminophen 1 tab 05/26/22 18:06 05/29/22 08:36 Oxycodone /Acetaminophen 5-325mg Tab PO 1 tab Q6H PRN Administration Pain, Moderate (4-6) Polyethylene Glycol 17 gm 05/28/22 11:20 Polyethylene Glycol 3350 17 Gm Powder PO QDAY PRN Constipation Sodium Chloride 10 ml 05/26/22 22:00 05/29/22 10:12 Sodium Chloride 0.9% 10 Ml Flush Syringe IV 10 ml BID KOMAL Administration Sodium Chloride 10 ml 05/26/22 18:06 Sodium Chloride 0.9% 10 Ml Flush Syringe IV PRN PRN LINE FLUSH
--- NOTE | 2022-05-29 13:51 | Progress Note ---
Assessment and Plan Cultures: Blood culture no growth so far Surgical drainage culture pending A/P: 31-year-old female no past medical history now with: #Acute sepsis: Present with fevers, leukocytosis. Secondary to intra-abdominal abscess with perforated viscus #Intra-abdominal abscess: Status post intraoperative drainage, drain in place. Awaiting cultures. Recs: -Continue cefepime, metronidazole -Follow up blood, surgical cultures -If fevers continue to recur over the weekend would repeat abdominal imaging. Thank you for the consult, we will continue to follow. Shanice Edge MD [facility] ([facility]) O: [phone] F: [phone] Subjective Date of service: 05/29/22 Interval history: Febrile overnight to 101.6 with a white count 23.1 which is the same as yesterday. Cultures all remain negative. Imaging personally reviewed: Chest x-ray: Low lung opacities Objective - Constitutional Vitals: Vital Signs Temp Pulse Resp BP Pulse Ox 99.4 F 98 H 19 127/80 95 05/29/22 12:00 05/29/22 13:00 05/29/22 13:00 05/29/22 13:00 05/29/22 13:00 Temperature -Last 24 Hours Temperature 99.4 F Temperature 98.4 F Temperature 101.6 F Temperature 100.3 F Temperature 98.4 F Temperature 98.3 F Temperature 98.2 F Temperature 98.2 F Temperature 98.2 F Temperature 98.0 F Temperature 98 F - Labs CBC & Chem 7: 05/29/22 05:55 05/29/22 05:55 Labs: Abnormal lab results 05/27/22 05/29/22 05/29/22 Range/Units 04:06 05:55 05:55 WBC 23.1 H (4.5-11.0) K/mm3 RBC 3.35 L (3.65-5.03) M/mm3 Hgb 7.3 L (10.1-14.3) gm/dl Hct 23.9 L (30.3-42.9) % MCV 71 L (79-97) fl MCH 22 L (28-32) pg RDW 19.6 H (13.2-15.2) % Plt Count 475 H (140-440) K/mm3 BUN 19 H (7-17) mg/dL Calcium 8.0 L (8.4-10.2) mg/dL Crossmatch See Detail
[2022-05-29 19:14] LABS: Total Cells Counted 100
[2022-05-29 19:18] LABS: Anisocytosis 2+; Band Neutrophils # (Manual) 0.7 K/mm3; Basophils % (Manual) 0 % (0.0-1.8); Eosinophils % (Manual) 0 % (0.0-4.3); Hypochromasia 1+; Platelet Estimate Consistent w Auto
[2022-05-29] MEDS: HYDROmorphone 0.5 MG/0.5 ML INJ IV PRN (21:39)
[2022-05-29] MEDS ORDERED: diphenhydrAMINE 50 MG/ML VIAL IV PRN (22:00)
[2022-05-30] MEDS: KETOROLAC 30 MG/1 ML INJ IV SCH ×4 (00:23→22:17)
[2022-05-30] MEDS: metroNIDAZOLE/NS 500 MG/100 ML 500 MG/100 ML BAG IV SCH ×3 (02:33→18:32)
[2022-05-30] MEDS: CEFEPIME/NS 2 GM/100 ML 2 GM/100 ML BAG IV SCH ×3 (04:14→22:17)
[2022-05-30 05:33] LABS: Hematocrit 23.7 % (30.3-42.9); Hemoglobin 7.3 gm/dl (10.1-14.3); Mean Corpuscular HGB Conc 31 % (30-34); Mean Corpuscular Volume 70 fl (79-97); Platelet Count 508 K/mm3 (140-440); Red Blood Count 3.38 M/mm3 (3.65-5.03)
[2022-05-30 05:37] LABS: Red Cell Distribution Width 20.1 % (13.2-15.2)
[2022-05-30 05:48] LABS: Blood Urea Nitrogen 16 mg/dL (7-17); Calcium 8.1 mg/dL (8.4-10.2); Hemolysis Index 0
[2022-05-30 05:49] LABS: BUN/Creatinine Ratio 27
[2022-05-30 06:17] LABS: Anisocytosis 1+; Band Neutrophils # (Manual) 0.7 K/mm3; Basophils % (Manual) 0 % (0.0-1.8); Eosinophils % (Manual) 0 % (0.0-4.3); Hypochromasia 2+; Platelet Estimate Consistent w Auto; Total Cells Counted 100
[2022-05-30] MEDS: DOCUSATE SODIUM 100 MG CAP PO SCH ×2 (09:38→22:18)
[2022-05-30] MEDS: FAMOTIDINE 20 MG TAB PO SCH (09:38)
[2022-05-30] MEDS: HYDROmorphone 0.5 MG/0.5 ML INJ IV PRN ×2 (09:39→22:02)
--- NOTE | 2022-05-30 11:10 | Progress Note ---
Assessment and Plan Postop day #3 status post diagnostic fluoroscopy with abdominal washout and drain placement 5 days after . Patient's been afebrile for the last 24 hours with low-grade tachycardia. Continues to have leukocytosis but is trending down compared to yesterday. Unclear source of leukocytosis since abdominal cultures have been negative. Clinically patient continues to improve daily. We will continue to follow closely, if pain increases or there is no change in leukocytosis tomorrow we will consider getting a CT scan of the abd omen and pelvis to look for any pathology that may be the source. Patient can continue to have clear liquids as tolerated. Subjective Date of service: 05/30/22 Narrative: No acute events overnight. Patient says that her pain on her right side continues to improve and the main pain she feels is on her left side where the drain is. Patient says that when she tried to take her protein shake she felt very nauseous. She denies any vomiting. She is tolerating water and ice without difficulty. Objective Vital Signs - 12hr 05/29/22 05/30/22 05/30/22 23:36 00:23 00:53 Temperature 98.6 F Pulse Rate 116 H Respiratory 18 18 18 Rate Blood Pressure 135/86 O2 Sat by Pulse 95 Oximetry 05/30/22 05/30/22 05/30/22 04:13 06:30 07:00 Temperature 98.8 F Pulse Rate 111 H Respiratory 22 20 18 Rate Blood Pressure 138/88 O2 Sat by Pulse 94 Oximetry - General physical appearance well developed, no distress, no pain - Eyes PERRL - ENT no hearing loss - Respiratory normal expansion, normal respiratory effort - Abdomen soft, distended, not rebound, not guarding, other (Mild generalized tenderness t o palpation, DELMY drain serosanguineous) - Neurologic normal coordination, normal sensation - Labs 05/30/22 05:03 05/30/22 05:03 Diabetes panel 05/30/22 Range/Units 05:03 Sodium 136 L (137-145) mmol/L Potassium 3.8 (3.6-5.0) mmol/L Chloride 100.2 (98-107) mmol/L Carbon Dioxide 23 (22-30) mmol/L BUN 16 (7-17) mg/dL Creatinine 0.6 (0.6-1.2) mg/dL Glucose 92 (65-100) mg/dL Calcium 8.1 L (8.4-10.2) mg/dL Calcium panel 05/30/22 Range/Units 05:03 Calcium 8.1 L (8.4-10.2) mg/dL Pituitary panel 05/30/22 Range/Units 05:03 Sodium 136 L (137-145) mmol/L Potassium 3.8 (3.6-5.0) mmol/L Chloride 100.2 (98-107) mmol/L Carbon Dioxide 23 (22-30) mmol/L BUN 16 (7-17) mg/dL Creatinine 0.6 (0.6-1.2) mg/dL Glucose 92 (65-100) mg/dL Calcium 8.1 L (8.4-10.2) mg/dL Adrenal panel 05/30/22 Range/Units 05:03 Sodium 136 L (137-145) mmol/L Potassium 3.8 (3.6-5.0) mmol/L Chloride 100.2 (98-107) mmol/L Carbon Dioxide 23 (22-30) mmol/L BUN 16 (7-17) mg/dL Creatinine 0.6 (0.6-1.2) mg/dL Glucose 92 (65-100) mg/dL Calcium 8.1 L (8.4-10.2) mg/dL
[2022-05-30] MEDS: oxyCODONE /ACETAMINOPHEN 5-325MG TAB PO PRN ×2 (11:50→19:24)
--- NOTE | 2022-05-30 13:39 | Progress Note ---
Assessment and Plan Assessment and plan: History of present illness: 31 YO Female with no past medical history presents to ED for evaluation. Patient reports "my stomach hurts". Patient states that she has experienced pain in her abdomen over the past 3 days with worsening symptoms over the past 2 days since discharge from the hospital. Patient states that her pain is 7/10, constant, stabbing, worsened with movement, relieved somewhat with no movement. Patient transported to [facility] via private vehicle for further care and evaluation of the aforementioned symptoms. The patient [facility] All lab and imaging studies reviewed. The patient was found to have clinical symptoms consistent with acute peritonitis complicated by sepsis. Patient with CT scan of the abdomen and pelvis and was found to have a perforated viscus with suspected intra-abdominal abscess. Patient admitted to [facility] and initiated on sepsis protocol. Surgery team consulted in ED. Patient taken urgently to the operating room for surgical intervention. Patient denies fever, chills, chest pain, palpitation, adductive cough, skin rash, recent contact, known exposure to COVID-19. No prior admission for review. No medication listed at time of admission for reconciliation. Advanced care plann ing conducted in ED. Assessment: #Blood loss anemia - Hgb: 6.0 on 05/28, likely losses from surgery. Currently all VSS. No signs and symptoms of GIB on history. - 1 unit prbc ordered, recheck hgb: 7.3 #Sepsis POA - Febrile to 100.4 with a white count 29.7 #Intra-abdominal abscess s/p diagnostic laparoscopy, lysis of adhesions and pe ricolonic abscess drainage on 05/26. - 05/26 CTAP: Fluid air collection in right pericolonic gutter posterior to ascending colon suggestive of abscess. Adjacent appendix not distended findings consistent with ruptured appendix with secondary abscess formation. #Peritonitis #Likely perforated appendicitis #History of emergent section #Advance care planning Disease education conducted, care plan discussed, diagnoses discussed, prognosis discussed, patient is full code, patient acknowledges understanding and agree with care plan, +30 minutes. Plan: - 1unit prbc complete, recheck Hgb 7.3 - Continue to trend WBC. Patient has been afebrile for approximately 24 hours. - bcx, unremarkable surgical cultures so far. - ID consulted; appreciate recs. - General surgery consulted; appreciate recs - DELMY drain in place, to be removed prior to dc -Encourage incentive spirometry and for patient to sit in the chair. Patient expressed understanding. -Continue analgesic with IV toradol. - IV abx: cefepime, flagyl IV. Infectious disease consulted; appreciate recs. Will defer to them for oral antibiotic options when closer to discharge. Disposition Plan: Continue medical management Total Time Spent with Patient (Minutes): 45 minutes History Interval history: No acute events overnight. Hospitalist Physical - Constitutional Vitals: Temp Pulse Resp BP Pulse Ox 97.9 F 93 H 16 142/89 98 05/30/22 11:38 05/30/22 11:38 05/30/22 11:38 05/30/22 11:38 05/30/22 11:38 General appearance: Present: mild distress, well-nourished - EENT Eyes: Present: PERRL, EOM intact ENT: hearing intact, clear oral mucosa, dentition normal - Neck Neck: Present: supple, normal ROM - Respiratory Respiratory effort: normal Respiratory: bilateral: CTA - Cardiovascular Rhythm: regular Heart Sounds: Present: S1 & S2 - Extremities Extremities: no ischemia, pulses intact, pulses symmetrical, No edema, normal temperature, normal color Peripheral Pulses: within normal limits - Abdominal General gastrointestinal: soft, tender, normal bowel sounds, other (Closed sutures of emergent with DELMY drain in left lower quadrant with minimal serosanguineous fluid) - Integumentary Integumentary: Present: clear, warm, dry - Psychiatric Psychiatric: appropriate mood/affect, intact judgment & insight, memory intact, cooperative - Neurologic Neurologic: CNII-XII intact, moves all extremities - Allied Health Allied health notes reviewed: nursing HEART Score - HEART Score Troponin: Troponin T < 0.010 ng/mL (0.00-0.029) 05/27/22 04:06 Results - Labs CBC & Chem 7: 05/30/22 05:03 05/30/22 05:03 Labs: Laboratory Last Values WBC 21.9 K/mm3 (4.5-11.0) H 05/30/22 05:03 RBC 3.38 M/mm3 (3.65-5.03) L 05/30/22 05:03 Hgb 7.3 gm/dl (10.1-14.3) L 05/30/22 05:03 Hct 23.7 % (30.3-42.9) L 05/30/22 05:03 MCV 70 fl (79-97) L 05/30/22 05:03 MCH 22 pg (28-32) L 05/30/22 05:03 MCHC 31 % (30-34) 05/30/22 05:03 RDW 20.1 % (13.2-15.2) H 05/30/22 05:03 Plt Count 508 K/mm3 (140-440) H 05/30/22 05:03 [place] % (Auto) 4.9 % (0.0-7.3) 05/28/22 09:24 Eos % (Auto) 0.2 % (0.0-4.3) 05/28/22 09:24 [place] # (Auto) 1.1 K/mm3 (0.0-0.8) H 05/28/22 09:24 Eos # (Auto) 0.0 K/mm3 (0.0-0.4) 05/28/22 09:24 Baso # (Auto) 0.0 K/mm3 (0.0-0.1) 05/28/22 09:24 Add Manual Diff Complete 05/30/22 05:03 Total Counted 100 05/30/22 05:03 Seg Neutrophils % Cna Ltc 05/28/22 09:24 Seg Neuts % (Manual) 89.0 % (40.0-70.0) H 05/30/22 05:03 Band Neutrophils % 3.0 % 05/30/22 05:03 Lymphocytes % (Manual) 3.0 % (13.4-35.0) L 05/30/22 05:03 Reactive Lymphs % (Man) 0 % 05/30/22 05:03 Monocytes % (Manual) 5.0 % (0.0-7.3) 05/30/22 05:03 Eosinophils % (Manual) 0 % (0.0-4.3) 05/30/22 05:03 Basophils % (Manual) 0 % (0.0-1.8) 05/30/22 05:03 Metamyelocytes % 0 % 05/30/22 05:03 Myelocytes % 0 % 05/30/22 05:03 Promyelocytes % 0 % 05/30/22 05:03 Blast Cells % 0 % 05/30/22 05:03 Nucleated RBC % Not Reportable 05/30/22 05:03 Seg Neutrophils # 20.8 K/mm3 (1.8-7.7) H 05/28/22 09:24 Seg Neutrophils # Man 19.5 K/mm3 (1.8-7.7) H 05/30/22 05:03 Band Neutrophils # 0.7 K/mm3 05/30/22 05:03 Lymphocytes # (Manual) 0.7 K/mm3 (1.2-5.4) L 05/30/22 05:03 Abs React Lymphs (Man) 0.0 K/mm3 05/30/22 05:03 Monocytes # (Manual) 1.1 K/mm3 (0.0-0.8) H 05/30/22 05:03 Eosinophils # (Manual) 0.0 K/mm3 (0.0-0.4) 05/30/22 05:03 Basophils # (Manual) 0.0 K/mm3 (0.0-0.1) 05/30/22 05:03 Metamyelocytes # 0.0 K/mm3 05/30/22 05:03 Myelocytes # 0.0 K/mm3 05/30/22 05:03 Promyelocytes # 0.0 K/mm3 05/30/22 05:03 Blast Cells # 0.0 K/mm3 05/30/22 05:03 WBC Morphology Not Reportable 05/30/22 05:03 Hypersegmented Neuts Not Reportable 05/30/22 05:03 Hyposegmented Neuts Not Reportable 05/30/22 05:03 Hypogranular Neuts Not Reportable 05/30/22 05:03 Smudge Cells Not Reportable 05/30/22 05:03 Toxic Granulation Not Reportable 05/30/22 05:03 Toxic Vacuolation Not Reportable 05/30/22 05:03 Dohle Bodies Not Reportable 05/30/22 05:03 Pelger-Huet Anomaly Not Reportable 05/30/22 05:03 Mary Rods Not Reportable 05/30/22 05:03 Platelet Estimate Consistent w auto 05/30/22 05:03 Clumped Platelets Not Reportable 05/30/22 05:03 Plt Clumps, EDTA Not Reportable 05/30/22 05:03 Large Platelets Not Reportable 05/30/22 05:03 Giant Platelets Not Reportable 05/30/22 05:03 Platelet Satelliting Not Reportable 05/30/22 05:03 Plt Morphology Comment Not Reportable 05/30/22 05:03 RBC Morphology Not Reportable 05/30/22 05:03 Dimorphic RBCs Not Reportable 05/30/22 05:03 Polychromasia Not Reportable 05/30/22 05:03 Hypochromasia 2+ 05/30/22 05:03 Poikilocytosis Not Reportable 05/30/22 05:03 Anisocytosis 1+ 05/30/22 05:03 Microcytosis Not Reportable 05/30/22 05:03 Macrocytosis Not Reportable 05/30/22 05:03 Spherocytes Not Reportable 05/30/22 05:03 Pappenheimer Bodies Not Reportable 05/30/22 05:03 Sickle Cells Not Reportable 05/30/22 05:03 Target Cells Not Reportable 05/30/22 05:03 Tear Drop Cells Not Reportable 05/30/22 05:03 Ovalocytes Not Reportable 05/30/22 05:03 Helmet Cells Not Reportable 05/30/22 05:03 [place] Bodies Not Reportable 05/30/22 05:03 [place] Rings Not Reportable 05/30/22 05:03 [place] Cells Not Reportable 05/30/22 05:03 Bite Cells Not Reportable 05/30/22 05:03 Crenated Cell Not Reportable 05/30/22 05:03 Elliptocytes Not Reportable 05/30/22 05:03 Acanthocytes (Spur) Not Reportable 05/30/22 05:03 Rouleaux Not Reportable 05/30/22 05:03 Hemoglobin C Crystals Not Reportable 05/30/22 05:03 Schistocytes Not Reportable 05/30/22 05:03 Malaria parasites Not Reportable 05/30/22 05:03 [place] Bodies Not Reportable 05/30/22 05:03 Hem Pathologist Commnt No 05/30/22 05:03 PT 13.9 Sec. (12.2-14.9) 05/26/22 17:31 INR 0.97 (0.87-1.13) 05/26/22 17:31 APTT 26.4 Sec. (24.2-36.6) 05/26/22 17:31 Sodium 136 mmol/L (137-145) L 05/30/22 05:03 Potassium 3.8 mmol/L (3.6-5.0) 05/30/22 05:03 Chloride 100.2 mmol/L (98-107) 05/30/22 05:03 Carbon Dioxide 23 mmol/L (22-30) 05/30/22 05:03 Anion Gap 17 mmol/L 05/30/22 05:03 BUN 16 mg/dL (7-17) 05/30/22 05:03 Creatinine 0.6 mg/dL (0.6-1.2) 05/30/22 05:03 Estimated GFR > 60 ml/min 05/30/22 05:03 BUN/Creatinine Ratio 27 % 05/30/22 05:03 Glucose 92 mg/dL (65-100) 05/30/22 05:03 POC Glucose 94 mg/dL (70-105) 05/28/22 21:31 Lactic Acid 1.30 mmol/L (0.7-2.0) 05/27/22 04:06 Calcium 8.1 mg/dL (8.4-10.2) L 05/30/22 05:03 Magnesium 1.60 mg/dL (1.7-2.3) L 05/26/22 13:38 Total Bilirubin 0.30 mg/dL (0.1-1.2) 05/28/22 09:24 AST 10 units/L (5-40) 05/28/22 09:24 ALT 9 units/L (7-56) 05/28/22 09:24 Alkaline Phosphatase 239 units/L (35-129) H 05/28/22 09:24 Troponin T < 0.010 ng/mL (0.00-0.029) 05/27/22 04:06 NT-Pro-B Natriuret Pep 1043 pg/mL (0-450) H 05/26/22 13:38 Total Protein 4.7 g/dL (6.3-8.2) L 05/28/22 09:24 Albumin 2.1 g/dL (3.9-5) L 05/28/22 09:24 Albumin/Globulin Ratio 0.8 % 05/28/22 09:24 Urine Color Red (Yellow) 05/26/22 13:57 Urine Turbidity Hazy (Clear) 05/26/22 13:57 Specific [place] (Man) 1.015 (1.003-1.030) 05/26/22 13:57 Ur Protein (Man) 2+ mg/dL (Negative) 05/26/22 13:57 Ur Ketones (Man) 5mg/dl (Negative) 05/26/22 13:57 Ur Nitrite (Man) Negative (Negative) 05/26/22 13:57 Ur Reducing Substances Not Reportable 05/26/22 13:57 Urine Bilirubin (Man) Negative (Negative) 05/26/22 13:57 Urine Ictotest Not Reportable 05/26/22 13:57 Leukocyte Esterase (Man) Trace (Negative) 05/26/22 13:57 Urine WBC (Auto) 57.0 /HPF (0.0-6.0) H 05/26/22 13:57 Urine RBC (Auto) > 182.0 /HPF (0.0-6.0) 05/26/22 13:57 U Epithel Cells (Auto) 3.0 /HPF (0-13.0) 05/26/22 13:57 Urine Bacteria (Auto) 1+ /HPF (Negative) 05/26/22 13:57 Urine RBC (Manual) 3+ (Negative) 05/26/22 13:57 Urine Mucus Few /HPF 05/26/22 13:57 Blood Type O NEGATIVE 05/27/22 04:06 Antibody Screen Positive 05/27/22 04:06 Antibody Identification Anti-D (Passively Aquired) 05/27/22 04:06 Crossmatch See Detail 05/27/22 04:06 Microbiology: Microbiology 05/26/22 13:38 Peripheral/Venous Blood Culture - Preliminary NO GROWTH AFTER 72 HOURS 05/26/22 13:38 Peripheral/Venous Blood Culture - Preliminary NO GROWTH AFTER 72 HOURS Maldonado/IV: Voiding Method Toilet Active Medications - Current Medications Current Medications: Generic Name Dose Route Start Last Admin Trade Name Freq PRN Reason Stop Dose Admin Acetaminophen 650 mg 05/26/22 18:19 05/29/22 00:08 Acetaminophen 325 Mg Tab PO 650 mg Q6H PRN Administration Pain, Mild (1-3) Albuterol 2.5 mg 05/26/22 18:06 Albuterol 2.5 Mg/3 Ml Nebu IH Q3HRT PRN Shortness Of Breath Diphenhydramine HCl 50 mg 05/29/22 22:00 Diphenhydramine 50 Mg/Ml Vial IV QHS PRN insomnia Docusate Sodium 100 mg 05/28/22 10:00 05/30/22 09:38 Docusate Sodium 100 Mg Cap PO 100 mg BID KOMAL Administration Famotidine 20 mg 05/30/22 10:00 05/30/22 09:38 Famotidine 20 Mg Tab PO 20 mg DAILY KOMAL Administration Hydromorphone HCl 0.25 mg 05/26/22 18:19 05/30/22 09:39 Hydromorphone 0.5 Mg/0.5 Ml Inj IV 0.25 mg Q4H PRN Administration Pain , Severe (7-10) Cefepime HCl 2 gm in 100 mls @ 200 mls/hr 05/26/22 19:00 05/30/22 04:14 Cefepime/Ns 2 Gm/100 Ml IV 200 mls/hr Q8H KOMAL Administration Protocol Metronidazole 500 mg in 100 mls @ 100 mls/hr 05/27/22 10:00 05/30/22 09:42 Flagyl 500 Mg/100 Ml IV 100 mls/hr Q8H KOMAL Administration Protocol Ketorolac Tromethamine 30 mg 05/27/22 15:00 05/30/22 06:30 Ketorolac 30 Mg/1 Ml Inj IV 06/01/22 14:59 30 mg Q8H KOMAL Administration Ondansetron HCl 4 mg 05/26/22 20:24 Ondansetron 4 Mg/2 Ml Inj IV Q8H PRN Nausea And Vomiting Oxycodone/Acetaminophen 1 tab 05/26/22 18:06 05/30/22 11:50 Oxycodone /Acetaminophen 5-325mg Tab PO 1 tab Q6H PRN Administration Pain, Moderate (4-6) Polyethylene Glycol 17 gm 05/28/22 11:20 Polyethylene Glycol 3350 17 Gm Powder PO QDAY PRN Constipation Sodium Chloride 10 ml 05/26/22 22:00 05/30/22 09:42 Sodium Chloride 0.9% 10 Ml Flush Syringe IV 10 ml BID KOMAL Administration Sodium Chloride 10 ml 05/26/22 18:06 Sodium Chloride 0.9% 10 Ml Flush Syringe IV PRN PRN LINE FLUSH
[2022-05-31] MEDS: oxyCODONE /ACETAMINOPHEN 5-325MG TAB PO PRN ×2 (02:27→09:38)
[2022-05-31] MEDS: metroNIDAZOLE/NS 500 MG/100 ML 500 MG/100 ML BAG IV SCH ×3 (02:28→18:38)
[2022-05-31] MEDS: CEFEPIME/NS 2 GM/100 ML 2 GM/100 ML BAG IV SCH ×3 (03:30→18:38)
[2022-05-31 06:09] LABS: Hematocrit 23.9 % (30.3-42.9); Hemoglobin 7.4 gm/dl (10.1-14.3); Mean Corpuscular HGB Conc 31 % (30-34); Mean Corpuscular Volume 71 fl (79-97); Platelet Count 556 K/mm3 (140-440); Red Blood Count 3.39 M/mm3 (3.65-5.03); Red Cell Distribution Width 19.7 % (13.2-15.2)
[2022-05-31 06:24] LABS: Blood Urea Nitrogen 16 mg/dL (7-17); Calcium 8.1 mg/dL (8.4-10.2); Hemolysis Index 1
[2022-05-31 06:28] LABS: BUN/Creatinine Ratio 27
[2022-05-31 07:12] LABS: Anisocytosis 1+; Band Neutrophils # (Manual) 1.2 K/mm3; Basophils % (Manual) 0 % (0.0-1.8); Eosinophils % (Manual) 0 % (0.0-4.3); Hypochromasia 2+; Total Cells Counted 100
[2022-05-31 07:13] LABS: Ovalocytes 1+; Platelet Estimate Consistent w Auto; Tear Drop Cells Rare
[2022-05-31] MEDS: KETOROLAC 30 MG/1 ML INJ IV SCH ×2 (07:45→18:38)
[2022-05-31] MEDS: FAMOTIDINE 20 MG TAB PO SCH (09:38)
[2022-05-31] MEDS: DOCUSATE SODIUM 100 MG CAP PO SCH ×2 (09:38→21:28)
--- NOTE | 2022-05-31 09:54 | Progress Note ---
Assessment and Plan Assessment and plan: History of present illness: 31 YO Female with no past medical history presents to ED for evaluation. Patient reports "my stomach hurts". Patient states that she has experienced pain in her abdomen over the past 3 days with worsening symptoms over the past 2 days since discharge from the hospital. Patient states that her pain is 7/10, constant, stabbing, worsened with movement, relieved somewhat with no movement. Patient transported to [facility] via private vehicle for further care and evaluation of the aforementioned symptoms. The patient was seen and evaluated in the [facility] department. All lab and imaging studies reviewed. The patient was found to have clinical symptoms consistent with acute peritonitis complicated by sepsis. Patient with CT scan of the abdomen and pelvis and was found to have a perforated viscus with suspected intra-abdominal abscess. Patient admitted to [facility] and initiated on sepsis protocol. Surgery team consulted in ED. Patient taken urgently to the operating room for surgical intervention. Patient denies fever, chills, chest pain, palpitation, adductive cough, skin rash, recent contact, known exposure to COVID-19. No prior admission for review. No medication listed at time of admission for reconciliation. Advanced care plann ing conducted in ED. Assessment: #Right-sided pleural effusion Right-sided pleural effusion visualized on CT chest (05/31/2022). Likely etiology for persistently elevated WBC count. Cultures will be ordered for fluid. Pending thoracentesis for 06/01/2022. #Blood loss anemia - Hgb: 6.0 on 05/28, likely losses from surgery. Currently all VSS. No signs and symptoms of GIB on history. - 1 unit prbc ordered, recheck hgb: 7.3 #Sepsis POA - Febrile to 100.4 with a white count 29.7 #Intra-abdominal abscess s/p diagnostic laparoscopy, lysis of adhesions and pericolonic abscess drainage on 05/26. - 05/26 CTAP: Fluid air collection in right pericolonic gutter posterior to ascending colon suggestive of abscess. Adjacent appendix not distended findings consistent with ruptured appendix with secondary abscess formation. #Peritonitis #Likely perforated appendicitis #History of emergent section #Advance care planning Disease education conducted, care plan discussed, diagnoses discussed, prognosis discussed, patient is full code, patient acknowledges understanding and agree with care plan, +30 minutes. Plan: - 1unit prbc complete, recheck Hgb 7.3 - Continue to trend WBC. Patient has been afebrile for approximately 24 hours. - bcx, unremarkable surgical cultures so far. - ID consulted; appreciate recs. - General surgery consulted; appreciate recs - DELMY drain in place, to be removed prior to dc -Encourage incentive spirometry and for patient to sit in the chair. Patient expressed understanding. -Continue analgesic with IV toradol. - IV abx: cefepime, flagyl IV. Infectious disease consulted; appreciate recs. Will defer to them for oral antibiotic options when closer to discharge. Disposition Plan: Continue medical management Total Time Spent with Patient (Minutes): 45 minutes History Interval history: No acute events overnight. Hospitalist Physical - Constitutional Vitals: Temp Pulse Resp BP Pulse Ox 98.3 F 90 20 120/78 94 05/31/22 05:51 05/31/22 05:51 05/30/22 21:55 05/31/22 05:51 05/31/22 05:51 General appearance: Present: mild distress, well-nourished - EENT Eyes: Present: PERRL, EOM intact ENT: hearing intact, clear oral mucosa, dentition normal - Neck Neck: Present: supple, normal ROM - Respiratory Respiratory effort: normal Respiratory: right: diminished - Cardiovascular Rhythm: regular Heart Sounds: Present: S1 & S2 - Extremities Extremities: no ischemia, pulses intact, pulses symmetrical, No edema, normal temperature Peripheral Pulses: within normal limits - Abdominal General gastrointestinal: soft, tender, non-distended, normal bowel sounds, othe r ( sutures with DELMY drain in LLQ) Localized gastrointestinal: tender: RLQ - Integumentary Integumentary: Present: clear, warm, dry - Psychiatric Psychiatric: appropriate mood/affect, intact judgment & insight, memory intact, cooperative - Neurologic Neurologic: CNII-XII intact, moves all extremities - Allied Health Allied health notes reviewed: nursing HEART Score - HEART Score Troponin: Troponin T < 0.010 ng/mL (0.00-0.029) 05/27/22 04:06 Results - Labs CBC & Chem 7: 05/31/22 05:43 05/31/22 05:43 Labs: Laboratory Last Values WBC 24.8 K/mm3 (4.5-11.0) H 05/31/22 05:43 RBC 3.39 M/mm3 (3.65-5.03) L 05/31/22 05:43 Hgb 7.4 gm/dl (10.1-14.3) L 05/31/22 05:43 Hct 23.9 % (30.3-42.9) L 05/31/22 05:43 MCV 71 fl (79-97) L 05/31/22 05:43 MCH 22 pg (28-32) L 05/31/22 05:43 MCHC 31 % (30-34) 05/31/22 05:43 RDW 19.7 % (13.2-15.2) H 05/31/22 05:43 Plt Count 556 K/mm3 (140-440) H 05/31/22 05:43 [place] % (Auto) 4.9 % (0.0-7.3) 05/28/22 09:24 Eos % (Auto) 0.2 % (0.0-4.3) 05/28/22 09:24 [place] # (Auto) 1.1 K/mm3 (0.0-0.8) H 05/28/22 09:24 Eos # (Auto) 0.0 K/mm3 (0.0-0.4) 05/28/22 09:24 Baso # (Auto) 0.0 K/mm3 (0.0-0.1) 05/28/22 09:24 Add Manual Diff Complete 05/31/22 05:43 Total Counted 100 05/31/22 05:43 Seg Neutrophils % Smocker 05/28/22 09:24 Seg Neuts % (Manual) 81.0 % (40.0-70.0) H 05/31/22 05:43 Band Neutrophils % 5.0 % 05/31/22 05:43 Lymphocytes % (Manual) 4.0 % (13.4-35.0) L 05/31/22 05:43 Reactive Lymphs % (Man) 0 % 05/31/22 05:43 Monocytes % (Manual) 9.0 % (0.0-7.3) H 05/31/22 05:43 Eosinophils % (Manual) 0 % (0.0-4.3) 05/31/22 05:43 Basophils % (Manual) 0 % (0.0-1.8) 05/31/22 05:43 Metamyelocytes % 1.0 % 05/31/22 05:43 Myelocytes % 0 % 05/31/22 05:43 Promyelocytes % 0 % 05/31/22 05:43 Blast Cells % 0 % 05/31/22 05:43 Nucleated RBC % Not Reportable 05/31/22 05:43 Seg Neutrophils # 20.8 K/mm3 (1.8-7.7) H 05/28/22 09:24 Seg Neutrophils # Man 20.1 K/mm3 (1.8-7.7) H 05/31/22 05:43 Band Neutrophils # 1.2 K/mm3 05/31/22 05:43 Lymphocytes # (Manual) 1.0 K/mm3 (1.2-5.4) L 05/31/22 05:43 Abs React Lymphs (Man) 0.0 K/mm3 05/31/22 05:43 Monocytes # (Manual) 2.2 K/mm3 (0.0-0.8) H 05/31/22 05:43 Eosinophils # (Manual) 0.0 K/mm3 (0.0-0.4) 05/31/22 05:43 Basophils # (Manual) 0.0 K/mm3 (0.0-0.1) 05/31/22 05:43 Metamyelocytes # 0.2 K/mm3 05/31/22 05:43 Myelocytes # 0.0 K/mm3 05/31/22 05:43 Promyelocytes # 0.0 K/mm3 05/31/22 05:43 Blast Cells # 0.0 K/mm3 05/31/22 05:43 WBC Morphology Not Reportable 05/31/22 05:43 Hypersegmented Neuts Not Reportable 05/31/22 05:43 Hyposegmented Neuts Not Reportable 05/31/22 05:43 Hypogranular Neuts Not Reportable 05/31/22 05:43 Smudge Cells Not Reportable 05/31/22 05:43 Toxic Granulation Not Reportable 05/31/22 05:43 Toxic Vacuolation Not Reportable 05/31/22 05:43 Dohle Bodies Not Reportable 05/31/22 05:43 Pelger-Huet Anomaly Not Reportable 05/31/22 05:43 Mary Rods Not Reportable 05/31/22 05:43 Platelet Estimate Consistent w auto 05/31/22 05:43 Clumped Platelets Not Reportable 05/31/22 05:43 Plt Clumps, EDTA Not Reportable 05/31/22 05:43 Large Platelets Not Reportable 05/31/22 05:43 Giant Platelets Not Reportable 05/31/22 05:43 Platelet Satelliting Not Reportable 05/31/22 05:43 Plt Morphology Comment Not Reportable 05/31/22 05:43 RBC Morphology Not Reportable 05/31/22 05:43 Dimorphic RBCs Not Reportable 05/31/22 05:43 Polychromasia Not Reportable 05/31/22 05:43 Hypochromasia 2+ 05/31/22 05:43 Poikilocytosis Not Reportable 05/31/22 05:43 Anisocytosis 1+ 05/31/22 05:43 Microcytosis 1+ 05/31/22 05:43 Macrocytosis Not Reportable 05/31/22 05:43 Spherocytes Not Reportable 05/31/22 05:43 Pappenheimer Bodies Not Reportable 05/31/22 05:43 Sickle Cells Not Reportable 05/31/22 05:43 Target Cells Not Reportable 05/31/22 05:43 Tear Drop Cells Rare 05/31/22 05:43 Ovalocytes 1+ 05/31/22 05:43 Helmet Cells Not Reportable 05/31/22 05:43 Henry-Margaret Bodies Not Reportable 05/31/22 05:43 [place] Rings Not Reportable 05/31/22 05:43 [place] Cells Not Reportable 05/31/22 05:43 Bite Cells Not Reportable 05/31/22 05:43 Crenated Cell Not Reportable 05/31/22 05:43 Elliptocytes Few 05/31/22 05:43 Acanthocytes (Spur) Not Reportable 05/31/22 05:43 Rouleaux Not Reportable 05/31/22 05:43 Hemoglobin C Crystals Not Reportable 05/31/22 05:43 Schistocytes Not Reportable 05/31/22 05:43 Malaria parasites Not Reportable 05/31/22 05:43 Norman Bodies Not Reportable 05/31/22 05:43 Hem Pathologist Commnt No 05/31/22 05:43 PT 13.9 Sec. (12.2-14.9) 05/26/22 17:31 INR 0.97 (0.87-1.13) 05/26/22 17:31 APTT 26.4 Sec. (24.2-36.6) 05/26/22 17:31 Sodium 136 mmol/L (137-145) L 05/31/22 05:43 Potassium 3.9 mmol/L (3.6-5.0) 05/31/22 05:43 Chloride 99.1 mmol/L (98-107) 05/31/22 05:43 Carbon Dioxide 23 mmol/L (22-30) 05/31/22 05:43 Anion Gap 18 mmol/L 05/31/22 05:43 BUN 16 mg/dL (7-17) 05/31/22 05:43 Creatinine 0.6 mg/dL (0.6-1.2) 05/31/22 05:43 Estimated GFR > 60 ml/min 05/31/22 05:43 BUN/Creatinine Ratio 27 % 05/31/22 05:43 Glucose 121 mg/dL (65-100) H 05/31/22 05:43 POC Glucose 94 mg/dL (70-105) 05/28/22 21:31 Lactic Acid 1.30 mmol/L (0.7-2.0) 05/27/22 04:06 Calcium 8.1 mg/dL (8.4-10.2) L 05/31/22 05:43 Magnesium 1.60 mg/dL (1.7-2.3) L 05/26/22 13:38 Total Bilirubin 0.30 mg/dL (0.1-1.2) 05/28/22 09:24 AST 10 units/L (5-40) 05/28/22 09:24 ALT 9 units/L (7-56) 05/28/22 09:24 Alkaline Phosphatase 239 units/L (35-129) H 05/28/22 09:24 Troponin T < 0.010 ng/mL (0.00-0.029) 05/27/22 04:06 NT-Pro-B Natriuret Pep 1043 pg/mL (0-450) H 05/26/22 13:38 Total Protein 4.7 g/dL (6.3-8.2) L 05/28/22 09:24 Albumin 2.1 g/dL (3.9-5) L 05/28/22 09:24 Albumin/Globulin Ratio 0.8 % 05/28/22 09:24 Urine Color Red (Yellow) 05/26/22 13:57 Urine Turbidity Hazy (Clear) 05/26/22 13:57 Specific [place] (Man) 1.015 (1.003-1.030) 05/26/22 13:57 Ur Protein (Man) 2+ mg/dL (Negative) 05/26/22 13:57 Ur Ketones (Man) 5mg/dl (Negative) 05/26/22 13:57 Ur Nitrite (Man) Negative (Negative) 05/26/22 13:57 Ur Reducing Substances Not Reportable 05/26/22 13:57 Urine Bilirubin (Man) Negative (Negative) 05/26/22 13:57 Urine Ictotest Not Reportable 05/26/22 13:57 Leukocyte Esterase (Man) Trace (Negative) 05/26/22 13:57 Urine WBC (Auto) 57.0 /HPF (0.0-6.0) H 05/26/22 13:57 Urine RBC (Auto) > 182.0 /HPF (0.0-6.0) 05/26/22 13:57 U Epithel Cells (Auto) 3.0 /HPF (0-13.0) 05/26/22 13:57 Urine Bacteria (Auto) 1+ /HPF (Negative) 05/26/22 13:57 Urine RBC (Manual) 3+ (Negative) 05/26/22 13:57 Urine Mucus Few /HPF 05/26/22 13:57 Blood Type O NEGATIVE 05/27/22 04:06 Antibody Screen Positive 05/27/22 04:06 Antibody Identification Anti-D (Passively Aquired) 05/27/22 04:06 Crossmatch See Detail 05/27/22 04:06 Microbiology: Microbiology 05/26/22 13:38 Peripheral/Venous Blood Culture - Preliminary NO GROWTH AFTER 4 DAYS 05/26/22 13:38 Peripheral/Venous Blood Culture - Preliminary NO GROWTH AFTER 4 DAYS Maldonado/IV: Voiding Method Toilet Active Medications - Current Medications Current Medications: Generic Name Dose Route Start Last Admin Trade Name Freq PRN Reason Stop Dose Admin Acetaminophen 650 mg 05/26/22 18:19 05/29/22 00:08 Acetaminophen 325 Mg Tab PO 650 mg Q6H PRN Administration Pain, Mild (1-3) Albuterol 2.5 mg 05/26/22 18:06 Albuterol 2.5 Mg/3 Ml Nebu IH Q3HRT PRN Shortness Of Breath Diphenhydramine HCl 50 mg 05/29/22 22:00 Diphenhydramine 50 Mg/Ml Vial IV QHS PRN insomnia Docusate Sodium 100 mg 05/28/22 10:00 05/31/22 09:38 Docusate Sodium 100 Mg Cap PO 100 mg BID KOMAL Administration Famotidine 20 mg 05/30/22 10:00 05/31/22 09:38 Famotidine 20 Mg Tab PO 20 mg DAILY KOMAL Administration Hydromorphone HCl 0.25 mg 05/26/22 18:19 05/30/22 22:02 Hydromorphone 0.5 Mg/0.5 Ml Inj IV 0.25 mg Q4H PRN Administration Pain , Severe (7-10) Cefepime HCl 2 gm in 100 mls @ 200 mls/hr 05/26/22 19:00 05/31/22 03:30 Cefepime/Ns 2 Gm/100 Ml IV 200 mls/hr Q8H [facility] Administration Protocol Metronidazole 500 mg in 100 mls @ 100 mls/hr 05/27/22 10:00 05/31/22 09:38 Flagyl 500 Mg/100 Ml IV 100 mls/hr Q8H [facility] Administration Protocol Ketorolac Tromethamine 30 mg 05/27/22 15:00 05/31/22 07:45 Ketorolac 30 Mg/1 Ml Inj IV 06/01/22 14:59 30 mg Q8H KOMAL Administration Ondansetron HCl 4 mg 05/26/22 20:24 05/30/22 23:47 Ondansetron 4 Mg/2 Ml Inj IV 4 mg Q8H PRN Administration Nausea And Vomiting Oxycodone/Acetaminophen 1 tab 05/26/22 18:06 05/31/22 09:38 Oxycodone /Acetaminophen 5-325mg Tab PO 1 tab Q6H PRN Administration Pain, Moderate (4-6) Polyethylene Glycol 17 gm 05/28/22 11:20 Polyethylene Glycol 3350 17 Gm Powder PO QDAY PRN Constipation Sodium Chloride 10 ml 05/26/22 22:00 05/31/22 09:38 Sodium Chloride 0.9% 10 Ml Flush Syringe IV 10 ml BID KOMAL Administration Sodium Chloride 10 ml 05/26/22 18:06 Sodium Chloride 0.9% 10 Ml Flush Syringe IV PRN PRN LINE FLUSH
--- NOTE | 2022-05-31 10:59 | Cat Scan Report ---
CT chest, abdomen, and pelvis with contrast INDICATION : persistent leukocytosis s/p dx lap. Shortness of breath for the past 3 days TECHNIQUE: 60 mL of intravenous contrast administered.. All CT scans at this location are performed using CT dose reduction for ALARA by means of automated exposure control. COMPARISON: CTA chest and CT abdomen/pelvis both from 05/26/2022 FINDINGS: Chest: Normal heart size with no coronary artery calcification. No pathologic mediastinal adenopathy . There is a large right-sided pleural effusion with underlying right basilar patchy airspace disease likely at least in part representing compressive atelectasis. There is also mild patchy airspace dis ease in the left upper lobe. No acute osseous abnormality identified. Abdomen/pelvis: The complex collection previously seen tracking along the right paracolic gutter has significantly decreased in size and there is now a surgical drain which tracks through this region w ith tip terminating adjacent to the liver. A small amount of perihepatic fluid is again noted with so me rim enhancement. Stable hepatomegaly with no acute abnormality. The gallbladder, spleen, pancreas, adrenals, kidneys, and proximal GI tract appear unremarkable. Urinary bladder is unremarkable. Uterus contains a moderate amount of fluid centrally. No acute colon ic abnormality identified. The terminal ileum is normal. There is mild generalized body wall edema. IMPRESSION: 1. New large right-sided pleural effusion with underlying patchy airspace disease/atelectasis. 2. New mild patchy airspace disease in the left upper lobe. 3. Significantly improved intra-abdominal findings with surgical drain placement along the right para colic gutter. 4. Additional incidental findings as above. Signer Name: Asa Pathak MD Signed: 05/31/2022 10:55 AM Workstation Name: [id number]
--- NOTE | 2022-05-31 11:09 | Progress Note ---
Subjective Date of service: 05/31/22 Objective Vital Signs - 12hr 05/31/22 05:51 Temperature 98.3 F Pulse Rate 90 Blood Pressure 120/78 O2 Sat by Pulse 94 Oximetry - Labs 05/31/22 05:43 05/31/22 05:43 Diabetes panel 05/31/22 Range/Units 05:43 Sodium 136 L (137-145) mmol/L Potassium 3.9 (3.6-5.0) mmol/L Chloride 99.1 (98-107) mmol/L Carbon Dioxide 23 (22-30) mmol/L BUN 16 (7-17) mg/dL Creatinine 0.6 (0.6-1.2) mg/dL Glucose 121 H (65-100) mg/dL Calcium 8.1 L (8.4-10.2) mg/dL Calcium panel 05/31/22 Range/Units 05:43 Calcium 8.1 L (8.4-10.2) mg/dL Pituitary panel 05/31/22 Range/Units 05:43 Sodium 136 L (137-145) mmol/L Potassium 3.9 (3.6-5.0) mmol/L Chloride 99.1 (98-107) mmol/L Carbon Dioxide 23 (22-30) mmol/L BUN 16 (7-17) mg/dL Creatinine 0.6 (0.6-1.2) mg/dL Glucose 121 H (65-100) mg/dL Calcium 8.1 L (8.4-10.2) mg/dL Adrenal panel 05/31/22 Range/Units 05:43 Sodium 136 L (137-145) mmol/L Potassium 3.9 (3.6-5.0) mmol/L Chloride 99.1 (98-107) mmol/L Carbon Dioxide 23 (22-30) mmol/L BUN 16 (7-17) mg/dL Creatinine 0.6 (0.6-1.2) mg/dL Glucose 121 H (65-100) mg/dL Calcium 8.1 L (8.4-10.2) mg/dL
--- NOTE | 2022-05-31 13:23 | Progress Note ---
Assessment and Plan Postop day #4 status post diagnostic fluoroscopy with abdominal washout and drain placement 5 days after . Patient's been afebrile for the last 24 hours with low-grade tachycardia. Patient's increase in leukocytosis and right-sided pleuritic pain may be due to right-sided pleural effusion. Recommend evaluation for right-sided thoracentesis. Patient continue to advance diet as tolerated. Subjective Date of service: 05/31/22 Narrative: No acute events overnight. Patient says that overall her abdominal pain is much improved however she has been having consistent right-sided chest pain that radiates to her shoulder. Patient has CT scan of the abdomen and pelvis with chest earlier today that showed significant improvement of the right paracolic fluid collection however she has a large right-sided pleural effusion. She is tolerating diet and ambulating with minimal difficulty. Objective Vital Signs - 12hr 05/31/22 05:51 Temperature 98.3 F Pulse Rate 90 Blood Pressure 120/78 O2 Sat by Pulse 94 Oximetry - General physical appearance well developed, no distress, moderate pain - Eyes PERRL - ENT no hearing loss - Respiratory normal expansion, normal respiratory effort - Abdomen soft, other (DELMY drain with small amount of serosanguineous fluid, probably te nder palpation.) - Labs 05/31/22 05:43 05/31/22 05:43 Diabetes panel 05/31/22 Range/Units 05:43 Sodium 136 L (137-145) mmol/L Potassium 3.9 (3.6-5.0) mmol/L Chloride 99.1 (98-107) mmol/L Carbon Dioxide 23 (22-30) mmol/L BUN 16 (7-17) mg/dL Creatinine 0.6 (0.6-1.2) mg/dL Glucose 121 H (65-100) mg/dL Calcium 8.1 L (8.4-10.2) mg/dL Calcium panel 05/31/22 Range/Units 05:43 Calcium 8.1 L (8.4-10.2) mg/dL Pituitary panel 05/31/22 Range/Units 05:43 Sodium 136 L (137-145) mmol/L Potassium 3.9 (3.6-5.0) mmol/L Chloride 99.1 (98-107) mmol/L Carbon Dioxide 23 (22-30) mmol/L BUN 16 (7-17) mg/dL Creatinine 0.6 (0.6-1.2) mg/dL Glucose 121 H (65-100) mg/dL Calcium 8.1 L (8.4-10.2) mg/dL Adrenal panel 05/31/22 Range/Units 05:43 Sodium 136 L (137-145) mmol/L Potassium 3.9 (3.6-5.0) mmol/L Chloride 99.1 (98-107) mmol/L Carbon Dioxide 23 (22-30) mmol/L BUN 16 (7-17) mg/dL Creatinine 0.6 (0.6-1.2) mg/dL Glucose 121 H (65-100) mg/dL Calcium 8.1 L (8.4-10.2) mg/dL
[2022-05-31] MEDS: HYDROmorphone 0.5 MG/0.5 ML INJ IV PRN ×2 (13:44→21:28)
[2022-06-01] MEDS: CEFEPIME/NS 2 GM/100 ML 2 GM/100 ML BAG IV SCH ×3 (02:49→20:08)
[2022-06-01] MEDS: metroNIDAZOLE/NS 500 MG/100 ML 500 MG/100 ML BAG IV SCH ×3 (04:01→17:03)
[2022-06-01] MEDS: HYDROmorphone 0.5 MG/0.5 ML INJ IV PRN ×3 (04:01→21:09)
[2022-06-01] MEDS: KETOROLAC 30 MG/1 ML INJ IV SCH ×2 (05:52→07:42)
[2022-06-01 08:41] LABS: Hematocrit 24.3 % (30.3-42.9); Hemoglobin 7.4 gm/dl (10.1-14.3); Mean Corpuscular HGB Conc 31 % (30-34); Mean Corpuscular Volume 71 fl (79-97); Platelet Count 602 K/mm3 (140-440); Red Blood Count 3.42 M/mm3 (3.65-5.03); Red Cell Distribution Width 19.8 % (13.2-15.2)
[2022-06-01 08:57] LABS: Blood Urea Nitrogen 18 mg/dL (7-17); Calcium 7.9 mg/dL (8.4-10.2); Hemolysis Index 0
[2022-06-01 09:13] LABS: BUN/Creatinine Ratio 30
[2022-06-01 10:46] LABS: Anisocytosis 1+; Band Neutrophils # (Manual) 0.2 K/mm3; Basophils % (Manual) 0 % (0.0-1.8); Eosinophils % (Manual) 0 % (0.0-4.3); Hypochromasia 2+; Ovalocytes 1+; Total Cells Counted 100
[2022-06-01 10:47] LABS: Platelet Estimate Consistent w Auto
[2022-06-01] MEDS: FAMOTIDINE 20 MG TAB PO SCH (11:59)
[2022-06-01] MEDS: DOCUSATE SODIUM 100 MG CAP PO SCH ×2 (11:59→21:51)
--- NOTE | 2022-06-01 12:35 | Progress Note ---
Assessment and Plan Cultures: Blood culture no growth so far Surgical drainage culture pending A/P: 31-year-old female no past medical history now with: #Acute sepsis: Present with fevers, leukocytosis. Secondary to intra-abdominal abscess with perforated viscus #Intra-abdominal abscess: Status post intraoperative drainage, drain in place. Awaiting cultures. Recs: -Continue cefepime, metronidazole -Abdominal imaging improved. -Agree leukocytosis may be secondary to large pleural effusion. -remains afebrile, continue present antibiotics. Thank you for the consult, we will continue to follow. Shanice Edge MD [facility], [place], [facility] ([facility]) O: [phone] F: [phone] Subjective Date of service: 06/01/22 Interval history: Afebrile, white count remains elevated 24.9. Cultures remain negative. Imaging personally reviewed: Chest CT: Large right-sided pleural effusion with underlying patchy airspace disease. Left-sided new patchy airspace disease. Improving intra-abdominal findings Objective - Exam Narrative Exam: Physical Exam: Constitutional: Alert, cooperative. No acute distress Head, Ears, Nose: Normocephalic, atraumatic. External ears, nose normal Eyes: Conjunctivae/corneas clear. No icterus. No ptosis. Neck: Supple, no meningeal signs Oral: dentition fair, no thrush Cardiovascular: S1, S2 normal. Respiratory: Good air entry, clear to auscultation bilaterally GI: Soft, nontender. Surgical dressing in place. Drain in place. Musculoskeletal: No pedal edema, no cyanosis. Skin: No rash or abscess Hem/Lymphatic: No palpable cervical or supraclavicular nodes. No lymphangitis Psych: Mood ok. Affect normal Neurological: Awake, alert, oriented. No gross abnormality - Constitutional Vitals: Vital Signs Temp Pulse Resp BP Pulse Ox 99.0 F 104 H 16 122/84 98 06/01/22 05:43 06/01/22 05:43 06/01/22 05:43 06/01/22 05:43 06/01/22 08:34 Temperature -Last 24 Hours Temperature 99.0 F Temperature 98.1 F - Labs CBC & Chem 7: 06/01/22 08:13 06/01/22 08:13 Labs: Abnormal lab results 06/01/22 06/01/22 Range/Units 08:13 08:13 WBC 24.9 H (4.5-11.0) K/mm3 RBC 3.42 L (3.65-5.03) M/mm3 Hgb 7.4 L (10.1-14.3) gm/dl Hct 24.3 L (30.3-42.9) % MCV 71 L (79-97) fl MCH 22 L (28-32) pg RDW 19.8 H (13.2-15.2) % Plt Count 602 H (140-440) K/mm3 Seg Neuts % (Manual) 78.0 H (40.0-70.0) % Lymphocytes % (Manual) 4.0 L (13.4-35.0) % Nucleated RBC % 3.0 H (0.0-0.9) % Seg Neutrophils # Man 19.4 H (1.8-7.7) K/mm3 Lymphocytes # (Manual) 1.0 L (1.2-5.4) K/mm3 Monocytes # (Manual) 1.7 H (0.0-0.8) K/mm3 Sodium 135 L (137-145) mmol/L Chloride 97.2 L (98-107) mmol/L BUN 18 H (7-17) mg/dL Glucose 102 H (65-100) mg/dL Calcium 7.9 L (8.4-10.2) mg/dL
--- NOTE | 2022-06-01 14:18 | Progress Note ---
Assessment and Plan Assessment and plan: History of present illness: 31 YO Female with no past medical history presents to ED for evaluation. Patient reports "my stomach hurts". Patient states that she has experienced pain in her abdomen over the past 3 days with worsening symptoms over the past 2 days since discharge from the hospital. Patient states that her pain is 7/10, constant, stabbing, worsened with movement, relieved somewhat with no movement. Patient transported to [facility] via private vehicle for further care and evaluation of the aforementioned symptoms. The patient was seen and evaluated in the [facility] department. All lab and imaging studies reviewed. The patient was found to have clinical symptoms consistent with acute peritonitis complicated by sepsis. Patient with CT scan of the abdomen and pelvis and was found to have a perforated viscus with suspected intra-abdominal abscess. Patient admitted to [facility] and initiated on sepsis protocol. Surgery team consulted in ED. Patient taken urgently to the operating room for surgical intervention. Patient denies fever, chills, chest pain, palpitation, adductive cough, skin rash, recent contact, known exposure to COVID-19. No prior admission for review. No medication listed at time of admission for reconciliation. Advanced care plann ing conducted in ED. Assessment: #Right-sided pleural effusion Right-sided pleural effusion visualized on CT chest (05/31/2022). Likely etiology for persistently elevated WBC count. Cultures will be ordered for fluid. Pending thoracentesis for 06/01/2022. #Blood loss anemia - Hgb: 6.0 on 05/28, likely losses from surgery. Currently all VSS. No signs and symptoms of GIB on history. - 1 unit prbc ordered, recheck hgb: 7.3 #Sepsis POA - Febrile to 100.4 with a white count 29.7 #Intra-abdominal abscess s/p diagnostic laparoscopy, lysis of adhesions and pericolonic abscess drainage on 05/26. - 05/26 CTAP: Fluid air collection in right pericolonic gutter posterior to ascending colon suggestive of abscess. Adjacent appendix not distended findings consistent with ruptured appendix with secondary abscess formation. #Peritonitis #Likely perforated appendicitis #History of emergent section #Advance care planning Disease education conducted, care plan discussed, diagnoses discussed, prognosis discussed, patient is full code, patient acknowledges understanding and agree with care plan, +30 minutes. Plan: - 1unit prbc complete, recheck Hgb 7.3 - Continue to trend WBC. Patient has been afebrile for approximately 24 hours. - bcx, unremarkable surgical cultures so far. - ID consulted; appreciate recs. - General surgery consulted; appreciate recs - DELMY drain in place, to be removed prior to dc -Encourage incentive spirometry and for patient to sit in the chair. Patient expressed understanding. -Continue analgesic with IV toradol. - IV abx: cefepime, flagyl IV. Infectious disease consulted; appreciate recs. Will defer to them for oral antibiotic options when closer to discharge. Disposition Plan: Continue medical management Total Time Spent with Patient (Minutes): 45 minutes History Interval history: No acute events overnight. Hospitalist Physical - Constitutional Vitals: Temp Pulse Resp BP Pulse Ox 98.5 F 94 H 18 126/82 100 06/01/22 12:00 06/01/22 12:00 06/01/22 12:00 06/01/22 12:00 06/01/22 12:00 General appearance: Present: mild distress, well-nourished - EENT Eyes: Present: PERRL, EOM intact ENT: hearing intact, clear oral mucosa, dentition normal - Neck Neck: Present: supple, normal ROM - Respiratory Respiratory effort: normal Respiratory: right: diminished - Cardiovascular Rhythm: regular Heart Sounds: Present: S1 & S2 - Extremities Extremities: no ischemia, pulses intact, pulses symmetrical, No edema, normal temperature, normal color, Full ROM Peripheral Pulses: within normal limits - Abdominal General gastrointestinal: soft, tender, non-distended, normal bowel sounds, other ( section incision with skin tape; DELMY drain left lower quadrant) - Integumentary Integumentary: Present: clear, warm, dry - Psychiatric Psychiatric: appropriate mood/affect, intact judgment & insight, memory intact, cooperative - Neurologic Neurologic: CNII-XII intact, moves all extremities - Allied Health Allied health notes reviewed: nursing HEART Score - HEART Score Troponin: Troponin T < 0.010 ng/mL (0.00-0.029) 05/27/22 04:06 Results - Labs CBC & Chem 7: 06/01/22 08:13 06/01/22 08:13 Labs: Laboratory Last Values WBC 24.9 K/mm3 (4.5-11.0) H 06/01/22 08:13 RBC 3.42 M/mm3 (3.65-5.03) L 06/01/22 08:13 Hgb 7.4 gm/dl (10.1-14.3) L 06/01/22 08:13 Hct 24.3 % (30.3-42.9) L 06/01/22 08:13 MCV 71 fl (79-97) L 06/01/22 08:13 MCH 22 pg (28-32) L 06/01/22 08:13 MCHC 31 % (30-34) 06/01/22 08:13 RDW 19.8 % (13.2-15.2) H 06/01/22 08:13 Plt Count 602 K/mm3 (140-440) H 06/01/22 08:13 Woodson % (Auto) 4.9 % (0.0-7.3) 05/28/22 09:24 Eos % (Auto) 0.2 % (0.0-4.3) 05/28/22 09:24 Woodson # (Auto) 1.1 K/mm3 (0.0-0.8) H 05/28/22 09:24 Eos # (Auto) 0.0 K/mm3 (0.0-0.4) 05/28/22 09:24 Baso # (Auto) 0.0 K/mm3 (0.0-0.1) 05/28/22 09:24 Add Manual Diff Complete 06/01/22 08:13 Total Counted 100 06/01/22 08:13 Seg Neutrophils % Bond Trader 05/28/22 09:24 Seg Neuts % (Manual) 78.0 % (40.0-70.0) H 06/01/22 08:13 Band Neutrophils % 1.0 % 06/01/22 08:13 Lymphocytes % (Manual) 4.0 % (13.4-35.0) L 06/01/22 08:13 Reactive Lymphs % (Man) 0 % 06/01/22 08:13 Monocytes % (Manual) 7.0 % (0.0-7.3) 06/01/22 08:13 Eosinophils % (Manual) 0 % (0.0-4.3) 06/01/22 08:13 Basophils % (Manual) 0 % (0.0-1.8) 06/01/22 08:13 Metamyelocytes % 6.0 % 06/01/22 08:13 Myelocytes % 4.0 % 06/01/22 08:13 Promyelocytes % 0 % 06/01/22 08:13 Blast Cells % 0 % 06/01/22 08:13 Nucleated RBC % 3.0 % (0.0-0.9) H 06/01/22 08:13 Seg Neutrophils # 20.8 K/mm3 (1.8-7.7) H 05/28/22 09:24 Seg Neutrophils # Man 19.4 K/mm3 (1.8-7.7) H 06/01/22 08:13 Band Neutrophils # 0.2 K/mm3 06/01/22 08:13 Lymphocytes # (Manual) 1.0 K/mm3 (1.2-5.4) L 06/01/22 08:13 Abs React Lymphs (Man) 0.0 K/mm3 06/01/22 08:13 Monocytes # (Manual) 1.7 K/mm3 (0.0-0.8) H 06/01/22 08:13 Eosinophils # (Manual) 0.0 K/mm3 (0.0-0.4) 06/01/22 08:13 Basophils # (Manual) 0.0 K/mm3 (0.0-0.1) 06/01/22 08:13 Metamyelocytes # 1.5 K/mm3 06/01/22 08:13 Myelocytes # 1.0 K/mm3 06/01/22 08:13 Promyelocytes # 0.0 K/mm3 06/01/22 08:13 Blast Cells # 0.0 K/mm3 06/01/22 08:13 WBC Morphology Not Reportable 06/01/22 08:13 Hypersegmented Neuts Not Reportable 06/01/22 08:13 Hyposegmented Neuts Not Reportable 06/01/22 08:13 Hypogranular Neuts Not Reportable 06/01/22 08:13 Smudge Cells Not Reportable 06/01/22 08:13 Toxic Granulation Not Reportable 06/01/22 08:13 Toxic Vacuolation Not Reportable 06/01/22 08:13 Dohle Bodies Not Reportable 06/01/22 08:13 Pelger-Huet Anomaly Not Reportable 06/01/22 08:13 Mary Rods Not Reportable 06/01/22 08:13 Platelet Estimate Consistent w auto 06/01/22 08:13 Clumped Platelets Not Reportable 06/01/22 08:13 Plt Clumps, EDTA Not Reportable 06/01/22 08:13 Large Platelets Not Reportable 06/01/22 08:13 Giant Platelets Not Reportable 06/01/22 08:13 Platelet Satelliting Not Reportable 06/01/22 08:13 Plt Morphology Comment Not Reportable 06/01/22 08:13 RBC Morphology Not Reportable 06/01/22 08:13 Dimorphic RBCs Not Reportable 06/01/22 08:13 Polychromasia Not Reportable 06/01/22 08:13 Hypochromasia 2+ 06/01/22 08:13 Poikilocytosis Not Reportable 06/01/22 08:13 Anisocytosis 1+ 06/01/22 08:13 Microcytosis 1+ 06/01/22 08:13 Macrocytosis Not Reportable 06/01/22 08:13 Spherocytes Not Reportable 06/01/22 08:13 Pappenheimer Bodies Not Reportable 06/01/22 08:13 Sickle Cells Not Reportable 06/01/22 08:13 Target Cells Not Reportable 06/01/22 08:13 Tear Drop Cells Not Reportable 06/01/22 08:13 Ovalocytes 1+ 06/01/22 08:13 Helmet Cells Not Reportable 06/01/22 08:13 [place] Bodies Not Reportable 06/01/22 08:13 [place] Rings Not Reportable 06/01/22 08:13 Wing Cells Not Reportable 06/01/22 08:13 Bite Cells Not Reportable 06/01/22 08:13 Crenated Cell Not Reportable 06/01/22 08:13 Elliptocytes Not Reportable 06/01/22 08:13 Acanthocytes (Spur) Not Reportable 06/01/22 08:13 Rouleaux Not Reportable 06/01/22 08:13 Hemoglobin C Crystals Not Reportable 06/01/22 08:13 Schistocytes Not Reportable 06/01/22 08:13 Malaria parasites Not Reportable 06/01/22 08:13 Norman Bodies Not Reportable 06/01/22 08:13 Hem Pathologist Commnt No 06/01/22 08:13 PT 13.9 Sec. (12.2-14.9) 05/26/22 17:31 INR 0.97 (0.87-1.13) 05/26/22 17:31 APTT 26.4 Sec. (24.2-36.6) 05/26/22 17:31 Sodium 135 mmol/L (137-145) L 06/01/22 08:13 Potassium 4.2 mmol/L (3.6-5.0) 06/01/22 08:13 Chloride 97.2 mmol/L (98-107) L 06/01/22 08:13 Carbon Dioxide 24 mmol/L (22-30) 06/01/22 08:13 Anion Gap 18 mmol/L 06/01/22 08:13 BUN 18 mg/dL (7-17) H 06/01/22 08:13 Creatinine 0.6 mg/dL (0.6-1.2) 06/01/22 08:13 Estimated GFR > 60 ml/min 06/01/22 08:13 BUN/Creatinine Ratio 30 % 06/01/22 08:13 Glucose 102 mg/dL (65-100) H 06/01/22 08:13 POC Glucose 94 mg/dL (70-105) 05/28/22 21:31 Lactic Acid 1.30 mmol/L (0.7-2.0) 05/27/22 04:06 Calcium 7.9 mg/dL (8.4-10.2) L 06/01/22 08:13 Magnesium 1.60 mg/dL (1.7-2.3) L 05/26/22 13:38 Total Bilirubin 0.30 mg/dL (0.1-1.2) 05/28/22 09:24 AST 10 units/L (5-40) 05/28/22 09:24 ALT 9 units/L (7-56) 05/28/22 09:24 Alkaline Phosphatase 239 units/L (35-129) H 05/28/22 09:24 Troponin T < 0.010 ng/mL (0.00-0.029) 05/27/22 04:06 NT-Pro-B Natriuret Pep 1043 pg/mL (0-450) H 05/26/22 13:38 Total Protein 4.7 g/dL (6.3-8.2) L 05/28/22 09:24 Albumin 2.1 g/dL (3.9-5) L 05/28/22 09:24 Albumin/Globulin Ratio 0.8 % 05/28/22 09:24 Urine Color Red (Yellow) 05/26/22 13:57 Urine Turbidity Hazy (Clear) 05/26/22 13:57 Specific Tyler (Man) 1.015 (1.003-1.030) 05/26/22 13:57 Ur Protein (Man) 2+ mg/dL (Negative) 05/26/22 13:57 Ur Ketones (Man) 5mg/dl (Negative) 05/26/22 13:57 Ur Nitrite (Man) Negative (Negative) 05/26/22 13:57 Ur Reducing Substances Not Reportable 05/26/22 13:57 Urine Bilirubin (Man) Negative (Negative) 05/26/22 13:57 Urine Ictotest Not Reportable 05/26/22 13:57 Leukocyte Esterase (Man) Trace (Negative) 05/26/22 13:57 Urine WBC (Auto) 57.0 /HPF (0.0-6.0) H 05/26/22 13:57 Urine RBC (Auto) > 182.0 /HPF (0.0-6.0) 05/26/22 13:57 U Epithel Cells (Auto) 3.0 /HPF (0-13.0) 05/26/22 13:57 Urine Bacteria (Auto) 1+ /HPF (Negative) 05/26/22 13:57 Urine RBC (Manual) 3+ (Negative) 05/26/22 13:57 Urine Mucus Few /HPF 05/26/22 13:57 Blood Type O NEGATIVE 05/27/22 04:06 Antibody Screen Positive 05/27/22 04:06 Antibody Identification Anti-D (Passively Aquired) 05/27/22 04:06 Crossmatch See Detail 05/27/22 04:06 Microbiology: Microbiology 05/26/22 13:38 Peripheral/Venous Blood Culture - Final NO GROWTH AFTER 5 DAYS 05/26/22 13:38 Peripheral/Venous Blood Culture - Final NO GROWTH AFTER 5 DAYS Maldonado/IV: Voiding Method Toilet Active Medications - Current Medications Current Medications: Generic Name Dose Route Start Last Admin Trade Name Freq PRN Reason Stop Dose Admin Acetaminophen 650 mg 05/26/22 18:19 05/29/22 00:08 Acetaminophen 325 Mg Tab PO 650 mg Q6H PRN Administration Pain, Mild (1-3) Hydrocodone Bitart/Acetaminophen 1 each 06/01/22 09:25 Hydrocodone/Acetaminophen 5-325 Mg Tab PO Q6H PRN Pain, Moderate (4-6) Albuterol 2.5 mg 05/26/22 18:06 Albuterol 2.5 Mg/3 Ml Nebu IH Q3HRT PRN Shortness Of Breath Diphenhydramine HCl 50 mg 05/29/22 22:00 Diphenhydramine 50 Mg/Ml Vial IV QHS PRN insomnia Docusate Sodium 100 mg 05/28/22 10:00 06/01/22 11:59 Docusate Sodium 100 Mg Cap PO Not Given BID KOMLA Famotidine 20 mg 05/30/22 10:00 06/01/22 11:59 Famotidine 20 Mg Tab PO Not Given DAILY KOMAL Hydromorphone HCl 0.25 mg 06/01/22 10:12 06/01/22 11:59 Hydromorphone 0.5 Mg/0.5 Ml Inj IV 0.25 mg Q4H PRN Administration Pain , Severe (7-10) Cefepime HCl 2 gm in 100 mls @ 200 mls/hr 05/26/22 19:00 06/01/22 11:59 Cefepime/Ns 2 Gm/100 Ml IV 200 mls/hr Q8H KOMAL Administration Protocol Metronidazole 500 mg in 100 mls @ 100 mls/hr 05/27/22 10:00 06/01/22 09:06 Flagyl 500 Mg/100 Ml IV 100 mls/hr Q8H KOMAL Administration Protocol Ketorolac Tromethamine 30 mg 05/27/22 15:00 06/01/22 07:42 Ketorolac 30 Mg/1 Ml Inj IV 06/01/22 14:59 30 mg Q8H KOMAL Administration Ondansetron HCl 4 mg 05/26/22 20:24 05/30/22 23:47 Ondansetron 4 Mg/2 Ml Inj IV 4 mg Q8H PRN Administration Nausea And Vomiting Oxycodone/Acetaminophen 1 tab 05/26/22 18:06 05/31/22 09:38 Oxycodone /Acetaminophen 5-325mg Tab PO 1 tab Q6H PRN Administration Pain, Moderate (4-6) Polyethylene Glycol 17 gm 05/28/22 11:20 Polyethylene Glycol 3350 17 Gm Powder PO QDAY PRN Constipation Sodium Chloride 10 ml 05/26/22 22:00 06/01/22 09:06 Sodium Chloride 0.9% 10 Ml Flush Syringe IV 10 ml BID KOMAL Administration Sodium Chloride 10 ml 05/26/22 18:06 Sodium Chloride 0.9% 10 Ml Flush Syringe IV PRN PRN LINE FLUSH
--- NOTE | 2022-06-01 14:55 | Progress Note ---
Assessment and Plan 31 yo F s/p dx lap, NATY, drainage of pericolonic RUQ abscess POD 6 1. peritonitis, intraabdominal abscess - likely perforated appendicitis 2. sepsis 2/2 #1 3. hx csection 05/21/22 4. Right sided pleural effusion Patient stable. Afebrile.WBC remains elevated Intra-abdominal cultures -negative Plan: 1. Soft diet 2. IV abx - ID on board 3. prn pain control 4. DVT ppx - SCDs 5. DELMY drain care - will continue during admission and likely remove prior to discharge. Strict I/Os. 6. OOB/ambulate. PT on board 7. IS/pulm toilet 8. For u/s guided thoracentesis today 9. CBC in am Thank you. Please call with any questions or concerns. Subjective Date of service: 06/01/22 Narrative: Pt seen and examined. No n/v. She is afebrile. She is having BMs. She has not been out of bed much d/t pleutitic chest pain. She is using IS. Objective Vital Signs - 12hr 06/01/22 06/01/22 06/01/22 05:43 08:34 12:00 Temperature 99.0 F 98.5 F Pulse Rate 104 H 94 H Respiratory 16 18 Rate Blood Pressure 122/84 Blood Pressure 126/82 [Right] O2 Sat by Pulse 92 98 100 Oximetry - General physical appearance Narrative Exam: Gen.: Awake, alert, oriented x3. NAD ENT: Trachea midline. No lymphadenopathy. No scleral icterus or conjunctival pallor CV: S1, S2 present Respiratory: No audible wheezes. Abdomen: Soft, non distended, NT. All incisions c/d/i. L sided DELMY drain serous Extremities: No clubbing, cyanosis, edema DELMY - 20cc/24h - Labs 06/01/22 08:13 06/01/22 08:13 Diabetes panel 06/01/22 Range/Units 08:13 Sodium 135 L (137-145) mmol/L Potassium 4.2 (3.6-5.0) mmol/L Chloride 97.2 L (98-107) mmol/L Carbon Dioxide 24 (22-30) mmol/L BUN 18 H (7-17) mg/dL Creatinine 0.6 (0.6-1.2) mg/dL Glucose 102 H (65-100) mg/dL Calcium 7.9 L (8.4-10.2) mg/dL Calcium panel 06/01/22 Range/Units 08:13 Calcium 7.9 L (8.4-10.2) mg/dL Pituitary panel 06/01/22 Range/Units 08:13 Sodium 135 L (137-145) mmol/L Potassium 4.2 (3.6-5.0) mmol/L Chloride 97.2 L (98-107) mmol/L Carbon Dioxide 24 (22-30) mmol/L BUN 18 H (7-17) mg/dL Creatinine 0.6 (0.6-1.2) mg/dL Glucose 102 H (65-100) mg/dL Calcium 7.9 L (8.4-10.2) mg/dL Adrenal panel 06/01/22 Range/Units 08:13 Sodium 135 L (137-145) mmol/L Potassium 4.2 (3.6-5.0) mmol/L Chloride 97.2 L (98-107) mmol/L Carbon Dioxide 24 (22-30) mmol/L BUN 18 H (7-17) mg/dL Creatinine 0.6 (0.6-1.2) mg/dL Glucose 102 H (65-100) mg/dL Calcium 7.9 L (8.4-10.2) mg/dL
[2022-06-01] MEDS ORDERED: LIDOCAINE (1%) 10 MG/1 ML VIAL 20 ML MDV ONE (14:57)
--- NOTE | 2022-06-01 15:22 | Procedure Note ---
Date of procedure: 06/01/22 Pre-op diagnosis: right pleural effusion Post-op diagnosis: same Procedure: US thoracentesis Findings: moderate right pleural effusion Anesthesia: local Surgeon: ALMAZ MILTON Estimated blood loss: none Pathology: list (120cc) Specimen disposition: to lab Condition: stable Disposition: floor
[2022-06-01] MEDS: HYDROcodone/ACETAMINOPHEN 5-325 MG TAB PO PRN (15:46)
--- NOTE | 2022-06-01 16:05 | XRay Report ---
CHEST 1 VIEW 06/01/2022 3:34 PM INDICATION / CLINICAL INFORMATION: right pl eff, recent thora. COMPARISON: 05/29/2022 FINDINGS: SUPPORT DEVICES: None. HEART / MEDIASTINUM: Stable. LUNGS / PLEURA: Right lower lung opacity and effusion persist No pneumothorax. Signer Name: Zeeshan Sesay MD Signed: 06/01/2022 4:01 PM Workstation Name: [id number]
--- NOTE | 2022-06-01 18:01 | Ultrasound Report ---
ULTRASOUND-GUIDED THORACENTESIS HISTORY: right side pleur effision. COMPARISON: CT chest performed the same day PROCEDURE: The risks (including but not limited to bleeding, infection, and pneumothorax) and benefi ts were explained to the patient and informed consent was obtained. A time out procedure was perform ed. Ultrasound was used to evaluate the right pleural effusion and locate the optimal site for needle ent ry. Once the skin was marked, the procedure site was prepped and draped in the usual sterile fashion and lidocaine was used for local anesthesia. A 5-Taiwanese thoracentesis catheter was placed. The pat ient was monitored closely throughout the procedure, and a total of 800 mL of clear yellow fluid was aspirated. Samples were sent to the lab for further evaluation per the primary clinicians orders. The patient tolerated the procedure well with no complications. A post-procedure chest x-ray was imm ediately ordered. IMPRESSION: Successful thoracentesis as above with a total of 800 mL of clear yellow fluid aspirated. Signer Name: Shamar Raymundo Jr, MD Signed: 06/01/2022 5:57 PM Workstation Name: [id number]
[2022-06-01 19:39] LABS: Total Cells Counted 100 /mm3
[2022-06-02] MEDS: HYDROcodone/ACETAMINOPHEN 5-325 MG TAB PO PRN ×3 (00:30→21:49)
[2022-06-02] MEDS: metroNIDAZOLE/NS 500 MG/100 ML 500 MG/100 ML BAG IV SCH ×3 (02:49→19:36)
[2022-06-02] MEDS: CEFEPIME/NS 2 GM/100 ML 2 GM/100 ML BAG IV SCH ×2 (03:45→11:53)
[2022-06-02 06:09] LABS: Hematocrit 23.7 % (30.3-42.9); Hemoglobin 7.4 gm/dl (10.1-14.3); Mean Corpuscular HGB Conc 31 % (30-34); Mean Corpuscular Volume 71 fl (79-97); Platelet Count 697 K/mm3 (140-440); Red Blood Count 3.36 M/mm3 (3.65-5.03)
[2022-06-02] MEDS: HYDROmorphone 0.5 MG/0.5 ML INJ IV PRN ×2 (06:12→16:43)
[2022-06-02 06:29] LABS: Blood Urea Nitrogen 19 mg/dL (7-17); Calcium 7.9 mg/dL (8.4-10.2); Hemolysis Index 2
[2022-06-02 07:03] LABS: Basophils % (Manual) 0 % (0.0-1.8); Eosinophils % (Manual) 0 % (0.0-4.3); Myelocytes # (Manual) 0.2 K/mm3; Total Cells Counted 100
[2022-06-02 07:04] LABS: Anisocytosis 2+; Hypochromasia 1+; Platelet Estimate Consistent w Auto; Stomatocytes 1+
[2022-06-02 07:13] LABS: BUN/Creatinine Ratio 38
[2022-06-02] MEDS: FAMOTIDINE 20 MG TAB PO SCH (11:37)
[2022-06-02] MEDS: DOCUSATE SODIUM 100 MG CAP PO SCH ×2 (11:37→21:49)
--- NOTE | 2022-06-02 11:43 | Progress Note ---
Assessment and Plan Cultures: 05/26/2022 blood culture: No growth 05/26/2022 urine culture: Usual skin joseline 05/26/2022 peritoneal fluid/surgical drainage culture: No growth 06/01/2022 right pleural fluid: No organisms on gram stain, many PMNs, many mononuclear cells. Culture in process A/P: 31-year-old female with no past medical history admitted with: #Sepsis: Secondary to intra-abdominal abscess with perforated viscus #Intra-abdominal abscess: s/p dx lap, lysis of adhesions, drainage of pericolonic RUQ abscess, likely perforated appendicitis on 05/28/2022 #Moderate right pleural effusion: S/p ultrasound-guided thoracentesis on 06/01/2022. Pleural fluid WBC 42,300, RBC 734K. #Reactive thrombocytosis Recommendations: -Cultures have remained negative, cefepime de-escalated to IV ceftriaxone -Continue Flagyl -Follow-up thoracentesis cultures -monitor CBC Cathi Macario MD, FACPDILMA [facility] O: [phone] F: [phone] C: [phone] Subjective Date of service: 06/02/22 Interval history: No fever. Abdominal and chest pain +. Doing incentive spirometry. BM + Objective - Exam Narrative Exam: Physical Exam: Constitutional: Alert, cooperative. No acute distress Head, Ears, Nose: Normocephalic, atraumatic. External ears, nose normal Eyes: Conjunctivae/corneas clear. No icterus. No ptosis. Neck: Supple, no meningeal signs Cardiovascular: S1, S2 normal. Respiratory: Good air entry, clear to auscultation bilaterally GI: Soft, Surgical dressing in place. Drain in place. Musculoskeletal: No pedal edema, no cyanosis. Skin: No rash or abscess Hem/Lymphatic: No palpable cervical or supraclavicular nodes. No lymphangitis Psych: Mood ok. Affect normal Neurological: Awake, alert, oriented. No gross abnormality - Constitutional Vitals: Vital Signs Temp Pulse Resp BP Pulse Ox 99.7 F H 103 H 16 128/85 93 06/02/22 04:00 06/02/22 04:00 06/02/22 04:00 06/02/22 04:00 06/02/22 04:00 Temperature -Last 24 Hours Temperature 99.7 F Temperature 99.0 F Temperature 98.4 F Temperature 98.5 F - Labs CBC & Chem 7: 06/02/22 05:42 06/02/22 05:42 Labs: Abnormal lab results 06/02/22 06/02/22 Range/Units 05:42 05:42 WBC 23.0 H (4.5-11.0) K/mm3 RBC 3.36 L (3.65-5.03) M/mm3 Hgb 7.4 L (10.1-14.3) gm/dl Hct 23.7 L (30.3-42.9) % MCV 71 L (79-97) fl MCH 22 L (28-32) pg RDW 20.0 H (13.2-15.2) % Plt Count 697 H (140-440) K/mm3 Seg Neuts % (Manual) 90.0 H (40.0-70.0) % Lymphocytes % (Manual) 2.0 L (13.4-35.0) % Seg Neutrophils # Man 20.7 H (1.8-7.7) K/mm3 Lymphocytes # (Manual) 0.5 L (1.2-5.4) K/mm3 Monocytes # (Manual) 1.6 H (0.0-0.8) K/mm3 Sodium 135 L (137-145) mmol/L BUN 19 H (7-17) mg/dL Creatinine 0.5 L (0.6-1.2) mg/dL Glucose 115 H (65-100) mg/dL Calcium 7.9 L (8.4-10.2) mg/dL
[2022-06-02] MEDS ORDERED: cefTRIAXone/NS 2 GM/100 ML 2 GM/100 ML BAG IV SCH (12:00)
--- NOTE | 2022-06-02 12:40 | Progress Note ---
Assessment and Plan Assessment and plan: History of present illness: 31 YO Female with no past medical history presents to ED for evaluation. Patient reports "my stomach hurts". Patient states that she has experienced pain in her abdomen over the past 3 days with worsening symptoms over the past 2 days since discharge from the hospital. Patient states that her pain is 7/10, constant, stabbing, worsened with movement, relieved somewhat with no movement. Patient transported to [facility] via private vehicle for further care and evaluation of the aforementioned symptoms. The patient was seen and evaluated in the [facility] department. All lab and imaging studies reviewed. The patient was found to have clinical symptoms consistent with acute peritonitis complicated by sepsis. Patient with CT scan of the abdomen and pelvis and was found to have a perforated viscus with suspected intra-abdominal abscess. Patient admitted to [facility] and initiated on sepsis protocol. Surgery team consulted in ED. Patient taken urgently to the operating room for surgical intervention. Patient denies fever, chills, chest pain, palpitation, adductive cough, skin rash, recent contact, known exposure to COVID-19. No prior admission for review. No medication listed at time of admission for reconciliation. Advanced care plann ing conducted in ED. Assessment: #Right-sided pleural effusion Right-sided pleural effusion visualized on CT chest (05/31/2022). Likely etiology for persistently elevated WBC count. Cultures will be ordered for fluid. Status postthoracentesis on 06/01/2022. Thoracic fluid results: WBC 42,300, neutrophils 51, lymphocytes 16 Infectious disease consulted; appreciate recs. De-escalating from cefepime to Rocephin. #Blood loss anemia - Hgb: 6.0 on 05/28, likely losses from surgery. Currently all VSS. No signs and symptoms of GIB on history. - 1 unit prbc ordered, recheck hgb: 7.3 #Sepsis POA - Febrile to 100.4 with a white count 29.7 #Intra-abdominal abscess s/p diagnostic laparoscopy, lysis of adhesions and pericolonic abscess drainage on 05/26. - 05/26 CTAP: Fluid air collection in right pericolonic gutter posterior to ascending colon suggestive of abscess. Adjacent appendix not distended findings consistent with ruptured appendix with secondary abscess formation. #Peritonitis #Likely perforated appendicitis #History of emergent section #Advance care planning Disease education conducted, care plan discussed, diagnoses discussed, prognosis discussed, patient is full code, patient acknowledges understanding and agree with care plan, +30 minutes. Plan: - 1unit prbc complete, recheck Hgb 7.3 - Continue to trend WBC. Patient has been afebrile for approximately 24 hours. - bcx, unremarkable surgical cultures so far. - ID consulted; appreciate recs. - General surgery consulted; appreciate recs - DELMY drain in place, to be removed prior to dc -Encourage incentive spirometry and for patient to sit in the chair. Patient expressed understanding. -Continue analgesic with IV toradol. - IV abx: cefepime, flagyl IV. Infectious disease consulted; appreciate recs. Will defer to them for oral antibiotic options when closer to discharge. Disposition Plan: Continue medical management Total Time Spent with Patient (Minutes): 45 minutes Hospitalist Physical - Constitutional Vitals: Temp Pulse Resp BP Pulse Ox 99.7 F H 103 H 16 128/85 93 06/02/22 04:00 06/02/22 04:00 06/02/22 04:00 06/02/22 04:00 06/02/22 04:00 General appearance: Present: mild distress, well-nourished HEART Score - HEART Score Troponin: Troponin T < 0.010 ng/mL (0.00-0.029) 05/27/22 04:06 Results - Labs CBC & Chem 7: 06/02/22 05:42 06/02/22 05:42 Labs: Laboratory Last Values WBC 23.0 K/mm3 (4.5-11.0) H 06/02/22 05:42 RBC 3.36 M/mm3 (3.65-5.03) L 06/02/22 05:42 Hgb 7.4 gm/dl (10.1-14.3) L 06/02/22 05:42 Hct 23.7 % (30.3-42.9) L 06/02/22 05:42 MCV 71 fl (79-97) L 06/02/22 05:42 MCH 22 pg (28-32) L 06/02/22 05:42 MCHC 31 % (30-34) 06/02/22 05:42 RDW 20.0 % (13.2-15.2) H 06/02/22 05:42 Plt Count 697 K/mm3 (140-440) H 06/02/22 05:42 [place] % (Auto) 4.9 % (0.0-7.3) 05/28/22 09:24 Eos % (Auto) 0.2 % (0.0-4.3) 05/28/22 09:24 [place] # (Auto) 1.1 K/mm3 (0.0-0.8) H 05/28/22 09:24 Eos # (Auto) 0.0 K/mm3 (0.0-0.4) 05/28/22 09:24 Baso # (Auto) 0.0 K/mm3 (0.0-0.1) 05/28/22 09:24 Add Manual Diff Complete 06/02/22 05:42 Total Counted 100 06/02/22 05:42 Seg Neutrophils % Surgical Elastic Knitter Hand Frame 05/28/22 09:24 Seg Neuts % (Manual) 90.0 % (40.0-70.0) H 06/02/22 05:42 Band Neutrophils % 0 % 06/02/22 05:42 Lymphocytes % (Manual) 2.0 % (13.4-35.0) L 06/02/22 05:42 Reactive Lymphs % (Man) 0 % 06/02/22 05:42 Monocytes % (Manual) 7.0 % (0.0-7.3) 06/02/22 05:42 Eosinophils % (Manual) 0 % (0.0-4.3) 06/02/22 05:42 Basophils % (Manual) 0 % (0.0-1.8) 06/02/22 05:42 Metamyelocytes % 0 % 06/02/22 05:42 Myelocytes % 1.0 % 06/02/22 05:42 Promyelocytes % 0 % 06/02/22 05:42 Blast Cells % 0 % 06/02/22 05:42 Nucleated RBC % Not Reportable 06/02/22 05:42 Seg Neutrophils # 20.8 K/mm3 (1.8-7.7) H 05/28/22 09:24 Seg Neutrophils # Man 20.7 K/mm3 (1.8-7.7) H 06/02/22 05:42 Band Neutrophils # 0.0 K/mm3 06/02/22 05:42 Lymphocytes # (Manual) 0.5 K/mm3 (1.2-5.4) L 06/02/22 05:42 Abs React Lymphs (Man) 0.0 K/mm3 06/02/22 05:42 Monocytes # (Manual) 1.6 K/mm3 (0.0-0.8) H 06/02/22 05:42 Eosinophils # (Manual) 0.0 K/mm3 (0.0-0.4) 06/02/22 05:42 Basophils # (Manual) 0.0 K/mm3 (0.0-0.1) 06/02/22 05:42 Metamyelocytes # 0.0 K/mm3 06/02/22 05:42 Myelocytes # 0.2 K/mm3 06/02/22 05:42 Promyelocytes # 0.0 K/mm3 06/02/22 05:42 Blast Cells # 0.0 K/mm3 06/02/22 05:42 WBC Morphology Not Reportable 06/02/22 05:42 Hypersegmented Neuts Not Reportable 06/02/22 05:42 Hyposegmented Neuts Not Reportable 06/02/22 05:42 Hypogranular Neuts Not Reportable 06/02/22 05:42 Smudge Cells Not Reportable 06/02/22 05:42 Toxic Granulation Not Reportable 06/02/22 05:42 Toxic Vacuolation Not Reportable 06/02/22 05:42 Dohle Bodies Not Reportable 06/02/22 05:42 Pelger-Huet Anomaly Not Reportable 06/02/22 05:42 Mary Rods Not Reportable 06/02/22 05:42 Platelet Estimate Consistent w auto 06/02/22 05:42 Clumped Platelets Not Reportable 06/02/22 05:42 Plt Clumps, EDTA Not Reportable 06/02/22 05:42 Large Platelets Not Reportable 06/02/22 05:42 Giant Platelets Not Reportable 06/02/22 05:42 Platelet Satelliting Not Reportable 06/02/22 05:42 Plt Morphology Comment Not Reportable 06/02/22 05:42 RBC Morphology Not Reportable 06/02/22 05:42 Dimorphic RBCs Not Reportable 06/02/22 05:42 Polychromasia Not Reportable 06/02/22 05:42 Hypochromasia 1+ 06/02/22 05:42 Poikilocytosis Not Reportable 06/02/22 05:42 Anisocytosis 2+ 06/02/22 05:42 Microcytosis 1+ 06/02/22 05:42 Macrocytosis Not Reportable 06/02/22 05:42 Spherocytes Not Reportable 06/02/22 05:42 Pappenheimer Bodies Not Reportable 06/02/22 05:42 Sickle Cells Not Reportable 06/02/22 05:42 Target Cells Not Reportable 06/02/22 05:42 Tear Drop Cells Not Reportable 06/02/22 05:42 Ovalocytes Not Reportable 06/02/22 05:42 Stomatocytes 1+ 06/02/22 05:42 Helmet Cells Not Reportable 06/02/22 05:42 Henry-Alden Bodies Not Reportable 06/02/22 05:42 Wade Rings Not Reportable 06/02/22 05:42 Wing Cells Not Reportable 06/02/22 05:42 Bite Cells Not Reportable 06/02/22 05:42 Crenated Cell Not Reportable 06/02/22 05:42 Elliptocytes Not Reportable 06/02/22 05:42 Acanthocytes (Spur) Not Reportable 06/02/22 05:42 Rouleaux Not Reportable 06/02/22 05:42 Hemoglobin C Crystals Not Reportable 06/02/22 05:42 Schistocytes Not Reportable 06/02/22 05:42 Malaria parasites Not Reportable 06/02/22 05:42 Norman Bodies Not Reportable 06/02/22 05:42 Hem Pathologist Commnt No 06/02/22 05:42 PT 13.9 Sec. (12.2-14.9) 05/26/22 17:31 INR 0.97 (0.87-1.13) 05/26/22 17:31 APTT 26.4 Sec. (24.2-36.6) 05/26/22 17:31 Sodium 135 mmol/L (137-145) L 06/02/22 05:42 Potassium 4.4 mmol/L (3.6-5.0) 06/02/22 05:42 Chloride 98.2 mmol/L (98-107) 06/02/22 05:42 Carbon Dioxide 23 mmol/L (22-30) 06/02/22 05:42 Anion Gap 18 mmol/L 06/02/22 05:42 BUN 19 mg/dL (7-17) H 06/02/22 05:42 Creatinine 0.5 mg/dL (0.6-1.2) L 06/02/22 05:42 Estimated GFR > 60 ml/min 06/02/22 05:42 BUN/Creatinine Ratio 38 % 06/02/22 05:42 Glucose 115 mg/dL (65-100) H 06/02/22 05:42 POC Glucose 94 mg/dL (70-105) 05/28/22 21:31 Lactic Acid 1.30 mmol/L (0.7-2.0) 05/27/22 04:06 Calcium 7.9 mg/dL (8.4-10.2) L 06/02/22 05:42 Magnesium 1.60 mg/dL (1.7-2.3) L 05/26/22 13:38 Total Bilirubin 0.30 mg/dL (0.1-1.2) 05/28/22 09:24 AST 10 units/L (5-40) 05/28/22 09:24 ALT 9 units/L (7-56) 05/28/22 09:24 Alkaline Phosphatase 239 units/L (35-129) H 05/28/22 09:24 Troponin T < 0.010 ng/mL (0.00-0.029) 05/27/22 04:06 NT-Pro-B Natriuret Pep 1043 pg/mL (0-450) H 05/26/22 13:38 Total Protein 4.7 g/dL (6.3-8.2) L 05/28/22 09:24 Albumin 2.1 g/dL (3.9-5) L 05/28/22 09:24 Albumin/Globulin Ratio 0.8 % 05/28/22 09:24 Urine Color Red (Yellow) 05/26/22 13:57 Urine Turbidity Hazy (Clear) 05/26/22 13:57 Specific [place] (Man) 1.015 (1.003-1.030) 05/26/22 13:57 Ur Protein (Man) 2+ mg/dL (Negative) 05/26/22 13:57 Ur Ketones (Man) 5mg/dl (Negative) 05/26/22 13:57 Ur Nitrite (Man) Negative (Negative) 05/26/22 13:57 Ur Reducing Substances Not Reportable 05/26/22 13:57 Urine Bilirubin (Man) Negative (Negative) 05/26/22 13:57 Urine Ictotest Not Reportable 05/26/22 13:57 Leukocyte Esterase (Man) Trace (Negative) 05/26/22 13:57 Urine WBC (Auto) 57.0 /HPF (0.0-6.0) H 05/26/22 13:57 Urine RBC (Auto) > 182.0 /HPF (0.0-6.0) 05/26/22 13:57 U Epithel Cells (Auto) 3.0 /HPF (0-13.0) 05/26/22 13:57 Urine Bacteria (Auto) 1+ /HPF (Negative) 05/26/22 13:57 Urine RBC (Manual) 3+ (Negative) 05/26/22 13:57 Urine Mucus Few /HPF 05/26/22 13:57 Fluid Type Pleural 06/01/22 14:00 Fluid Color Slightly pink 06/01/22 14:00 Fluid Appearance Hazy 06/01/22 14:00 Fluid WBC 37289 /mm3 06/01/22 14:00 Fluid RBC 880734 /mm3 06/01/22 14:00 Fluid Seg Neutrophils 51.0 % 06/01/22 14:00 Fluid Lymphocytes 16.0 % 06/01/22 14:00 Fluid Reactive Lymphs Not Reportable 06/01/22 14:00 Fluid Monocytes 33.0 % 06/01/22 14:00 Fluid Eosinophils Not Reportable 06/01/22 14:00 Fluid Basophils Not Reportable 06/01/22 14:00 Blood Type O NEGATIVE 05/27/22 04:06 Antibody Screen Positive 05/27/22 04:06 Antibody Identification Anti-D (Passively Aquired) 05/27/22 04:06 Crossmatch See Detail 05/27/22 04:06 Microbiology: Microbiology 06/01/22 14:00 Pleural Fluid - Pleura,Rt Lung Body Fluid Culture - Preliminary 05/26/22 Unknown Peritoneal Fluid Anaerobic Culture - Final 05/26/22 Unknown Drainage Surgical Culture - Final 05/26/22 13:57 Urine,Clean Catch Urine Culture - Final Maldonado/IV: Voiding Method Toilet Active Medications - Current Medications Current Medications: Generic Name Dose Route Start Last Admin Trade Name Freq PRN Reason Stop Dose Admin Acetaminophen 650 mg 05/26/22 18:19 05/29/22 00:08 Acetaminophen 325 Mg Tab PO 650 mg Q6H PRN Administration Pain, Mild (1-3) Hydrocodone Bitart/Acetaminophen 1 each 06/01/22 09:25 06/02/22 11:52 Hydrocodone/Acetaminophen 5-325 Mg Tab PO 1 each Q6H PRN Administration Pain, Moderate (4-6) Albuterol 2.5 mg 05/26/22 18:06 Albuterol 2.5 Mg/3 Ml Nebu IH Q3HRT PRN Shortness Of Breath Diphenhydramine HCl 50 mg 05/29/22 22:00 Diphenhydramine 50 Mg/Ml Vial IV QHS PRN insomnia Docusate Sodium 100 mg 05/28/22 10:00 06/02/22 11:37 Docusate Sodium 100 Mg Cap PO 100 mg BID KOMAL Administration Famotidine 20 mg 05/30/22 10:00 06/02/22 11:37 Famotidine 20 Mg Tab PO 20 mg DAILY KOMAL Administration Hydromorphone HCl 0.25 mg 06/01/22 10:12 06/02/22 06:12 Hydromorphone 0.5 Mg/0.5 Ml Inj IV 0.25 mg Q4H PRN Administration Pain , Severe (7-10) Metronidazole 500 mg in 100 mls @ 100 mls/hr 05/27/22 10:00 06/02/22 11:37 Flagyl 500 Mg/100 Ml IV 100 mls/hr Q8H KOMAL Administration Protocol Ceftriaxone Sodium 2 gm in 100 mls @ 200 mls/hr 06/02/22 12:00 Rocephin/Ns 2 Gm/100 Ml IV Q24HR KOMAL Protocol Ondansetron HCl 4 mg 05/26/22 20:24 05/30/22 23:47 Ondansetron 4 Mg/2 Ml Inj IV 4 mg Q8H PRN Administration Nausea And Vomiting Polyethylene Glycol 17 gm 05/28/22 11:20 Polyethylene Glycol 3350 17 Gm Powder PO QDAY PRN Constipation Sodium Chloride 10 ml 05/26/22 22:00 06/02/22 11:37 Sodium Chloride 0.9% 10 Ml Flush Syringe IV 10 ml BID KOMAL Administration Sodium Chloride 10 ml 05/26/22 18:06 Sodium Chloride 0.9% 10 Ml Flush Syringe IV PRN PRN LINE FLUSH
--- NOTE | 2022-06-02 14:50 | Progress Note ---
Assessment and Plan 31 yo F s/p dx lap, NATY, drainage of pericolonic RUQ abscess POD 7 1. peritonitis, intraabdominal abscess - likely perforated appendicitis 2. sepsis 2/2 #1 3. hx csection 05/21/22 4. Right sided pleural effusion 5. s/p right thoracentesis 06/01/22 Patient stable. Afebrile. WBC remains elevated Intra-abdominal cultures -negative Plan: 1. Soft diet 2. IV abx - ID on board 3. prn pain control 4. DVT ppx - SCDs 5. DELMY drain removed 6. OOB/ambulate 7. IS/pulm toilet Ok to dc tomorrow from surgery standpoint if remains afebrile and ID transitions to oral abx. Thank you. Please call with any questions or concerns. Subjective Date of service: 06/02/22 Narrative: Pt seen and examined. Feeling better after thoracentesis yesterday. Jairo diet. NO n/v. Has been ambulating. No f/c. Objective Vital Signs - 12hr 06/02/22 06/02/22 04:00 12:31 Temperature 99.7 F H 97.8 F Pulse Rate 103 H 100 H Respiratory 16 18 Rate Blood Pressure 128/85 124/80 O2 Sat by Pulse 93 92 Oximetry - General physical appearance Narrative Exam: Gen.: Awake, alert, oriented x3. NAD ENT: Trachea midline. No lymphadenopathy. No scleral icterus or conjunctival pallor CV: S1, S2 present Respiratory: No audible wheezes. Abdomen: Soft, non distended, NT. All incisions c/d/i. L sided DELMY drain serous - scant. Dressing remove and drain suture cut, drain removed intact off bulb suction and dry dressing applied. Extremities: No clubbing, cyanosis, edema DELMY - 0cc/24h - Labs 06/02/22 05:42 06/02/22 05:42 Diabetes panel 06/02/22 Range/Units 05:42 Sodium 135 L (137-145) mmol/L Potassium 4.4 (3.6-5.0) mmol/L Chloride 98.2 (98-107) mmol/L Carbon Dioxide 23 (22-30) mmol/L BUN 19 H (7-17) mg/dL Creatinine 0.5 L (0.6-1.2) mg/dL Glucose 115 H (65-100) mg/dL Calcium 7.9 L (8.4-10.2) mg/dL Calcium panel 06/02/22 Range/Units 05:42 Calcium 7.9 L (8.4-10.2) mg/dL Pituitary panel 06/02/22 Range/Units 05:42 Sodium 135 L (137-145) mmol/L Potassium 4.4 (3.6-5.0) mmol/L Chloride 98.2 (98-107) mmol/L Carbon Dioxide 23 (22-30) mmol/L BUN 19 H (7-17) mg/dL Creatinine 0.5 L (0.6-1.2) mg/dL Glucose 115 H (65-100) mg/dL Calcium 7.9 L (8.4-10.2) mg/dL Adrenal panel 06/02/22 Range/Units 05:42 Sodium 135 L (137-145) mmol/L Potassium 4.4 (3.6-5.0) mmol/L Chloride 98.2 (98-107) mmol/L Carbon Dioxide 23 (22-30) mmol/L BUN 19 H (7-17) mg/dL Creatinine 0.5 L (0.6-1.2) mg/dL Glucose 115 H (65-100) mg/dL Calcium 7.9 L (8.4-10.2) mg/dL
[2022-06-03] MEDS: metroNIDAZOLE/NS 500 MG/100 ML 500 MG/100 ML BAG IV SCH ×2 (02:25→11:56)
[2022-06-03 06:23] LABS: Hematocrit 23.3 % (30.3-42.9); Hemoglobin 7.2 gm/dl (10.1-14.3); Mean Corpuscular HGB Conc 31 % (30-34); Mean Corpuscular Volume 70 fl (79-97); Platelet Count 838 K/mm3 (140-440); Red Blood Count 3.32 M/mm3 (3.65-5.03); Red Cell Distribution Width 19.8 % (13.2-15.2)
[2022-06-03 06:33] LABS: Blood Urea Nitrogen 13 mg/dL (7-17); Hemolysis Index 0
[2022-06-03 06:34] LABS: BUN/Creatinine Ratio 22
[2022-06-03 06:47] VITALS: BP 125/75
[2022-06-03] MEDS: HYDROcodone/ACETAMINOPHEN 5-325 MG TAB PO PRN (06:52)
[2022-06-03 08:25] LABS: Band Neutrophils # (Manual) 0.2 K/mm3; Basophils % (Manual) 0 % (0.0-1.8); Total Cells Counted 100
[2022-06-03 08:26] LABS: Anisocytosis 2+; Hypochromasia 2+; Target Cells 1+
[2022-06-03 08:27] LABS: Platelet Estimate Consistent w Auto
--- NOTE | 2022-06-03 10:49 | Progress Note ---
Assessment and Plan Cultures: 05/26/2022 blood culture: No growth 05/26/2022 urine culture: Usual skin joseline 05/26/2022 peritoneal fluid/surgical drainage culture: No growth 06/01/2022 right pleural fluid: No organisms on gram stain, many PMNs, many mononuclear cells. Culture with no growth so far. A/P: 31-year-old female with no past medical history admitted with: #Sepsis: Secondary to intra-abdominal abscess with perforated viscus #Intra-abdominal abscess: s/p dx lap, lysis of adhesions, drainage of pericolon ic RUQ abscess, likely perforated appendicitis on 05/28/2022 #Moderate right pleural effusion: S/p ultrasound-guided thoracentesis on 06/01/2022. Pleural fluid WBC 42,300, RBC 734K, no growth on culture. #Reactive thrombocytosis Recommendations: -WBC improving, drain removed, switched to PO Augmentin 875 mg twice daily for 7 days Cathi Macario MD, FACP, [facility] O: [phone] F: [phone] C: [phone] Subjective Date of service: 06/03/22 Interval history: No fever. Feeling well. Had her drain removed yesterday. Hoping to go home. Objective - Exam Narrative Exam: Physical Exam: Constitutional: Alert, cooperative. No acute distress Head, Ears, Nose: Normocephalic, atraumatic. External ears, nose normal Eyes: Conjunctivae/corneas clear. No icterus. No ptosis. Neck: Supple, no meningeal signs Cardiovascular: S1, S2 normal. Respiratory: Good air entry, clear to auscultation bilaterally GI: Soft, dressing + Musculoskeletal: No pedal edema, no cyanosis. Skin: No rash or abscess Hem/Lymphatic: No palpable cervical or supraclavicular nodes. No lymphangitis Psych: Mood ok. Affect normal Neurological: Awake, alert, oriented. No gross abnormality - Constitutional Vitals: Vital Signs Temp Pulse Resp BP Pulse Ox 99.8 F H 103 H 17 125/75 94 06/03/22 05:03 06/03/22 05:03 06/03/22 07:52 06/03/22 05:03 06/03/22 05:03 Temperature -Last 24 Hours Temperature 99.8 F Temperature 99.8 F Temperature 98.3 F Temperature 97.8 F - Labs CBC & Chem 7: 06/03/22 05:34 06/03/22 05:34 Labs: Abnormal lab results 06/03/22 06/03/22 Range/Units 05:34 05:34 WBC 18.0 H (4.5-11.0) K/mm3 RBC 3.32 L (3.65-5.03) M/mm3 Hgb 7.2 L (10.1-14.3) gm/dl Hct 23.3 L (30.3-42.9) % MCV 70 L (79-97) fl MCH 22 L (28-32) pg RDW 19.8 H (13.2-15.2) % Plt Count 838 H (140-440) K/mm3 Seg Neuts % (Manual) 89.0 H (40.0-70.0) % Lymphocytes % (Manual) 4.0 L (13.4-35.0) % Seg Neutrophils # Man 16.0 H (1.8-7.7) K/mm3 Lymphocytes # (Manual) 0.7 L (1.2-5.4) K/mm3 Monocytes # (Manual) 0.9 H (0.0-0.8) K/mm3 Sodium 134 L (137-145) mmol/L Calcium 8.0 L (8.4-10.2) mg/dL
[2022-06-03] MEDS ORDERED: AMOXICILLIN/K CLAV 875/125MG TAB PO SCH (11:00)
[2022-06-03] MEDS: FAMOTIDINE 20 MG TAB PO SCH (12:00)
[2022-06-03] MEDS: DOCUSATE SODIUM 100 MG CAP PO SCH (12:00)
--- NOTE | 2022-06-03 14:56 | Discharge Summary ---
Providers - Providers Date of Admission: 05/26/22 18:06 Attending physician: ОЛЕГ JEAN MD 05/27/22 09:52 Consult to Physician [CONS] Routine Comment: Consulting Provider: JC MONTES Physician Instructions: Reason For Exam: infection 05/29/22 10:59 Physical Therapy Evaluation and Treat [CONS] Routine Comment: Reason For Exam: post op Primary care physician: LALITO ALLISON Hospitalization Condition: Stable Disposition: 01 HOME / SELF CARE / HOMELESS Final Discharge Diagnosis (Prints w/discharge instructions): section complicated by intra-abdominal abscess from suspected perforated appendicitis. Left pleural effusion. Acute blood loss anemia. Leukocytosis, all cultures negative Time spent for discharge: 35 minutes Exam - Constitutional Vitals: Temp Pulse Resp BP Pulse Ox 99.8 F H 103 H 17 125/75 94 06/03/22 05:03 06/03/22 05:03 06/03/22 07:52 06/03/22 05:03 06/03/22 05:03 General appearance: Present: no acute distress, well-nourished - EENT Eyes: Present: PERRL. Absent: scleral icterus ENT: clear oral mucosa - Neck Neck: Present: supple - Respiratory Respiratory effort: normal Respiratory: bilateral: CTA - Cardiovascular Rhythm: regular - Extremities Extremities: pulses intact, No edema - Abdominal General gastrointestinal: Present: soft, non-tender, normal bowel sounds - Integumentary Integumentary: Absent: rash - Musculoskeletal Musculoskeletal: strength equal bilaterally - Psychiatric Psychiatric: appropriate mood/affect - Neurologic Neurologic: no focal deficits, moves all extremities, gait normal Plan Activity: advance as tolerated Weight Bearing Status: Full Weight Bearing Diet: regular Wound: per your surgeon's advice Additional Instructions: See your [facility] doctor in 1 week and general surgeon, Dr. Pickett in 2 weeks for follow-up. Follow up with: LALITO ALLISON MD [Primary Care Provider] - 3-5 Days LENARD XAVIER MD [Staff Physician] - 7 Days SHALINI PICKETT DO [Staff Physician] - 14 Days Prescriptions: Amoxicillin/K Clav Tab [Augmentin 875MG TAB] 1 each PO Q12HR #14 tablet Docusate Sodium [Colace CAP] 100 mg PO BID PRN #20 capsule PRN Reason: Constipation
--- NOTE | 2022-06-03 15:30 | Progress Note ---
Assessment and Plan 31 yo F s/p dx lap, NATY, drainage of pericolonic RUQ abscess POD 8 1. peritonitis, intraabdominal abscess - likely perforated appendicitis 2. sepsis 2/2 #1 3. hx csection 05/21/22 4. Right sided pleural effusion 5. s/p right thoracentesis 06/01/22 Patient stable. Afebrile. WBC trending down Intra-abdominal cultures -negative Plan: 1. Soft diet 2. abx - ID on board. Transitioned to oral augmentin 3. prn PO pain control 4. DVT ppx - SCDs 5. OOB/ambulate 6. IS/pulm toilet Ok to dc from surgery standpoint. Follow up in surgery clinic in 2wks Thank you. Please call with any questions or concerns. Subjective Date of service: 06/03/22 Narrative: Pt seen and examined. No complaints. Afebrile. Jairo diet Objective Vital Signs - 12hr 06/03/22 06/03/22 06/03/22 05:03 06:52 07:52 Temperature 99.8 F H Pulse Rate 103 H Respiratory 20 17 17 Rate Blood Pressure 125/75 O2 Sat by Pulse 94 Oximetry - General physical appearance Narrative Exam: Gen.: Awake, alert, oriented x3. NAD ENT: Trachea midline. No lymphadenopathy. No scleral icterus or conjunctival pallor CV: S1, S2 present Respiratory: No audible wheezes. Abdomen: Soft, non distended, NT. All incisions c/d/i. Extremities: No clubbing, cyanosis, edema - Labs 06/03/22 05:34 06/03/22 05:34 Diabetes panel 06/03/22 Range/Units 05:34 Sodium 134 L (137-145) mmol/L Potassium 4.9 (3.6-5.0) mmol/L Chloride 98.1 (98-107) mmol/L Carbon Dioxide 25 (22-30) mmol/L BUN 13 (7-17) mg/dL Creatinine 0.6 (0.6-1.2) mg/dL Glucose 89 (65-100) mg/dL Calcium 8.0 L (8.4-10.2) mg/dL Calcium panel 06/03/22 Range/Units 05:34 Calcium 8.0 L (8.4-10.2) mg/dL Pituitary panel 06/03/22 Range/Units 05:34 Sodium 134 L (137-145) mmol/L Potassium 4.9 (3.6-5.0) mmol/L Chloride 98.1 (98-107) mmol/L Carbon Dioxide 25 (22-30) mmol/L BUN 13 (7-17) mg/dL Creatinine 0.6 (0.6-1.2) mg/dL Glucose 89 (65-100) mg/dL Calcium 8.0 L (8.4-10.2) mg/dL Adrenal panel 06/03/22 Range/Units 05:34 Sodium 134 L (137-145) mmol/L Potassium 4.9 (3.6-5.0) mmol/L Chloride 98.1 (98-107) mmol/L Carbon Dioxide 25 (22-30) mmol/L BUN 13 (7-17) mg/dL Creatinine 0.6 (0.6-1.2) mg/dL Glucose 89 (65-100) mg/dL Calcium 8.0 L (8.4-10.2) mg/dL
== END 2022-06-03 19:54 | disposition home or self-care (01) | DRG 769 ==
LOC: ED 11:42 → IMCU 18:06 → 3A 05-29 18:04
PROVIDERS: ADMIT Internal Medicine; ATTEND Internal Medicine
PROC: 0W9G40Z Drainage of Peritoneal Cavity with Drainage Device, Percutaneous Endoscopic Approach (ICD-10-PCS; principal; 2022-05-28)
PROC: 0DNU4ZZ Release Omentum, Percutaneous Endoscopic Approach (ICD-10-PCS; 2022-05-28)
PROC: 30233N1 Transfusion of Nonautologous Red Blood Cells into Peripheral Vein, Percutaneous Approach (ICD-10-PCS; 2022-05-28)
PROC: 0W993ZZ Drainage of Right Pleural Cavity, Percutaneous Approach (ICD-10-PCS; 2022-06-01)
DX: O85 Puerperal sepsis (principal); J90 Pleural effusion, not elsewhere classified; O99.63 Diseases of the digestive system complicating the puerperium; O90.81 Anemia of the puerperium; O99.53 Diseases of the respiratory system complicating the puerperium; D75.839 Thrombocytosis, unspecified; D62 Acute posthemorrhagic anemia; O99.13 Other diseases of the blood and blood-forming organs and certain disorders involving the immune mechanism complicating the puerperium; Z91.040 Latex allergy status; Z91.048 Other nonmedicinal substance allergy status; K66.0 Peritoneal adhesions (postprocedural) (postinfection)
CPT/HCPCS: 32555; 36415; 71045; 71260; 71275; 74177; 80048; 80053; 81001; 82140; 82947; 82962; 83605; 83735; 83880; 84484; 85007; 85025; 85027; 85610; 85730; 86850; 86870; 86900; 86901; 86920; 87040; 87075; 87086; 87116; 89051; 93005; 94760; 96374; 96375; 99285; G0378; J3490; J7070; J7517; J0692; J0696; J1100; J1170; J1885; J1956; J2060; J2250; J2270; J2405; J2704; J3010; J3370; J7030; J7040; P9016; Q9967